=== PATIENT | female | born 1955 | race Caucasian/White ===

== ENCOUNTER 2018-03-31 19:24 | Emergency (ER) | payer MEDICARE ==
[2018-03-31] MEDS ORDERED: NS 0.9% 1000 ML* 1,000 ML IV ONE (19:42)
[2018-03-31] MEDS ORDERED: Famotidine IV* 10 MG/ML 2 ML (20 mg) IV ONE (19:42)
[2018-03-31] MEDS ORDERED: Dexamethasone IV* 4 MG/ML 1 ML (4 MG) IV SLOW PU ONE (19:42)
[2018-03-31] MEDS ORDERED: EPINEPHrine AMP 1 MG/ML SUBCUT ONE (19:42)
--- NOTE | 2018-03-31 19:45 | ED ---
Allergic Reaction/Systemic - HPI Summary HPI Summary: 62 y/o female BIBA c/o sudden onset allergic reaction s/p bee sting at 18:40. Reaction characterized with diffuse redness and difficulty breathing. Pt denies feelings that her throat is swelling.100 Benadryl - 50 IV, 50 PO prior to EMS. No history of COPD. Smoker. Sx not aggravated or alleviated by anything. This is scribe Ed Melanie documenting for attending Albert Foss MD. I, Dr. Foss, personally performed the services described in this documentation as scribed in my presence and it is both accurate and complete. - History of Current Complaint Chief Complaint: EDAllergicReaction Time Seen by Provider: 03/31/18 19:39 Hx Obtained From: Patient Onset/Duration: Sudden Onset, Started hours ago Timing: Constant Pain Intensity: 0 Location: Diffuse - redness Character: Swelling - tongue Aggravating Factor(s): Nothing Alleviating Factor(s): Nothing Associated Signs And Symptoms: Positive: Difficulty Breathing. Negative: Throat Tightening - Allergies/Home Medications Allergies/Adverse Reactions: Allergies Allergy/AdvReac Type Severity Reaction Status Date / Time bee venom protein (honey bee) Allergy Severe Anaphylatic Verified 10/07/17 13:25 Shock morphine AdvReac Intermediate Rash Verified 10/07/17 13:25 PMH/Surg Hx/FS Hx/Imm Hx Previously Healthy: No Endocrine/Hematology History: Denies: Hx Diabetes Cardiovascular History: Reports: Hx Coronary Artery Disease, Hx Hypertension, Other Cardiovascular Problems/Disorders - cardiomyopathy Denies: Hx Pacemaker/ICD Respiratory History: Reports: Hx Pleural Effusion - multiple rib fractures with associated PE, Other Respiratory Problems/Disorders - smoker GI History: Reports: Hx Gastroesophageal Reflux Disease History: Denies: Hx Renal Disease Comment Only: Other Problems/Disorders - patient denies Musculoskeletal History: Reports: Hx Arthritis, Hx Back Problems, Hx Fibromyalgia, Hx Osteoporosis, Other Musculoskeletal History - left knee replacement Sensory History: Reports: Hx Contacts or Glasses - READING, Hx Eye Injury - bilateral periorbital ecchymosis since fall 3 ft, Hx Vision Problem Denies: Hx Hearing Aid Opthamlomology History: Reports: Hx Contacts or Glasses - READING, Hx Eye Injury - bilateral periorbital ecchymosis since fall 3 ft, Hx Vision Problem Neurological History: Denies: Other Neuro Impairments/Disorders - PAIN CLINIC PATIENT Psychiatric History: Reports: Hx Anxiety - NO MEDS, Hx Depression - NO MEDS, Hx of Violent Episodes Against Others, Hx Substance Abuse - ETOH ABUSE Denies: Hx Eating Disorder, Hx Panic Disorder - Surgical History Surgery Procedure, Year, and Place: Left Knee Replacement 1993; Knee Arthroplasty x2; tubal;. 2002 [facility] Hx Anesthesia Reactions: No Infectious Disease History: No Infectious Disease History: Denies: Traveled Outside the [place] in Last 30 Days - Family History Known Family History: Positive: Unknown - Social History Alcohol Use: Weekly Alcohol Amount: 6-8 drinks per week Hx Substance Use: No Substance Use Type: Reports: None Hx Tobacco Use: Yes Smoking Status (MU): Current Every Day Smoker Type: Cigarettes Amount Used/How Often: 1 PPD Length of Time of Smoking/Using Tobacco: 40yrs Have You Smoked in the Last Year: Yes Review of Systems Constitutional: Negative Eyes: Negative ENT: Negative Cardiovascular: Negative Positive: Shortness Of Breath Gastrointestinal: Negative Genitourinary: Negative Musculoskeletal: Negative Skin: Other - diffuse redness and swelling Neurological: Negative Psychological: Normal All Other Systems Reviewed And Are Negative: Yes Physical Exam - Summary Physical Exam Summary: VITAL SIGNS: Reviewed. GENERAL: Patient is a well-developed and nourished female who is lying comfortable in the stretcher. Patient is not in any acute respiratory distress. HEAD AND FACE: There is no facial swelling. No signs of trauma. No ecchymosis, hematomas or skull depressions. No sinus tenderness. EYES: PERRLA, EOMI x 2, No injected conjunctiva, no nystagmus. EARS: Hearing grossly intact. Ear canals and tympanic membranes are within normal limits. MOUTH: Oropharynx within normal limits. There is no tongue or lip swelling. NECK: Supple, trachea is midline, no adenopathy, no JVD, no carotid bruit, no c- spine tenderness, neck with full ROM. CHEST: Symmetric, no tenderness at palpation LUNGS: Decreased breath sounds bilaterally, mild wheezing. CVS: Regular rate and rhythm, S1 and S2 present, no murmurs or gallops appreciated. ABDOMEN: Soft, non-tender. No signs of distention. No rebound no guarding, and no masses palpated. Bowel sounds are normal. EXTREMITIES: FROM in all major joints, no edema, no cyanosis or clubbing. NEURO: Alert and oriented x 3. No acute neurological deficits. Speech is normal and follows commands. SKIN: Erythema and hives diffuse over the body. PSYCH: The patient seems anxious. Triage Information Reviewed: Yes Vital Signs On Initial Exam: Initial Vitals Temp Pulse Resp BP Pulse Ox 98 F 102 18 121/74 88 03/31/18 19:33 03/31/18 19:33 03/31/18 19:33 03/31/18 19:33 03/31/18 19:33 Vital Signs Reviewed: Yes Diagnostics - Vital Signs Vital Signs Temp Pulse Resp BP Pulse Ox 03/31/18 19:33 98 F 102 18 121/74 88 - Laboratory Result Diagrams: 03/31/18 19:46 03/31/18 19:46 Lab Statement: Any lab studies that have been ordered have been reviewed, and results considered in the medical decision making process. - EKG 1 EKG Interpretation: 19:58 - SR @ [address] elevations. PVC's. [address] depressions V4-6. Allergic Reaction Course/Dx - Course Assessment/Plan: Test results are without significant abnormalities except Sodium 123, which was significantly decreased from previous visits (132 December 09 ). Chloride 78, anion gap 14, glucose 108. Potassium 2.3. In the ED course the pt was placed on monitor, given epinephrine, solumedrol and decadron for the allergic reaction. Pt was given IV fluids, potassium PO because she declined potassium IV. I had a lengthy discussion with the charge nurse and the primary nurse about admitting the pt to the hospital for hyponatremia and hypokalemia. Pt is alert and oriented x3 and refuses to stay. We spent more than 40 minutes trying to convince the pt that she needs to stay; however, she refuses, she will have to sign AMA. However, she refuses to sign AMA because she thinks that her insurance will not cooperate with her if she does. Therefore we gave her the AMA form and the form was signed by the charge nurse, the primary care nurse and I. The pt will be d/c AMA. Pt was A&Ox3, hemodynamically stable. I offered Rx epinephrine, prednisone, Benadryl and Pepcid. She will only take the Rx for prednisone. Refuses epipen. She is A&Ox3, hemodynamically stable. - Diagnoses Provider Diagnoses: Allergic reaction, Hyponatremia, Hypokalemia Discharge - Sign-Out/Discharge Documenting (check all that apply): Patient Departure - Discharge Plan Condition: Stable Disposition: AGAINST MEDICAL ADVICE Prescriptions: predniSONE TAB* [Deltasone 20 MG TAB*] 40 mg PO DAILY #8 tab Patient Education Materials: Hyponatremia (ED), General Allergic Reaction (ED) Referrals: Kaitlyn Parker MD [Primary Care Provider] - - Billing Disposition and Condition Condition: STABLE Disposition: Against Medical Advice
[2018-03-31 19:56] LABS: ABS Basophils 0 10^3/ul (0-0.2); ABS Eosinophils 0 10^3/ul (0-0.6); ABS Lymphocytes 1.7 10^3/ul (1.0-4.8); ABS Monocytes 0.5 10^3/ul (0-0.8); ABS Neutrophils 3.7 10^3/ul (1.5-7.7); ABS Nucleated RBC 0 10^3/ul; Eosinophil % 0.4 % (0-6); Hematocrit 39 % (35-47); Hemoglobin 13.9 g/dl (12.0-16.0); Mean Corpuscular HGB Conc 36 g/dl (31-36); Mean Corpuscular Hemoglobin 32 pg (27-31); Mean Corpuscular Volume 90 fL (80-97); Mean Platelet Volume 7.7 um3 (7.4-10.4); Nucleated Red Blood Cells % 0.1; Platelet Count 247 10^3/ul (150-450); Red Blood Count 4.33 10^6/ul (4.00-5.40); Red Cell Distribution Width 13 % (10.5-15); White Blood Count 5.9 10^3/ul (3.5-10.8)
[2018-03-31] MEDS: Albuterol/Ipratropium NEB.SOL* Albuterol 2.5 MG/Ipratropium 0.5 MG 3 ML INH SCH ×3 (20:00→20:20)
[2018-03-31 20:13] LABS: EGFR Non-African American 103.3 (>60)
[2018-03-31] MEDS ORDERED: Potassium Chlor TAB* 20 MEQ TAB.ER PO ONE (20:35)
[2018-03-31] MEDS ORDERED: Magnesium Oxide TAB* 400 MG PO ONE (20:35)
--- OUTSIDE RECORDS SUMMARY | 2018-03-31 20:44 | XMS REPORT ---
:1955 External Reference #:[id number] Author Organization [facility] Address [address] [place] [address] Phone [phone] Care Team Providers Name Role Phone Kaitlyn Madsen M.D., R.D. Care Team Information Dermatology Procedural Physician Unavailable Payers Type Date Identification Numbers Payment Provider Subscriber Medicare Primary Effective: Policy Number: Medicare - Bswny Ross 1995 [id number] [facility] Yajaira Expires: 2015 PayID: [id number] [address] [place] [address] Commercial Expires: Policy Number: [place] Ross 2017 [id number] [employer] Yajaira PayID: [id number] Today's Options [address] [address] [place] [address] Commercial Effective: Policy Number: Eneida Be 2017 [id number] Medicare Yajaira Blueppo PayID: [id number] [address] [address] [place] [address] Problems Date Description Provider Status Onset: 05/13/2012 Low back pain Kaitlyn Madsen M.D., R.D. Active Onset: 05/13/2012 Disorder of shoulder Kaitlyn Madsen M.D., R.D. Active Onset: 05/13/2012 Essential hypertension Kaitlyn Madsen M.D., R.D. Active Onset: 05/13/2012 Ex-smoker Kaitlyn Madsen M.D., R.D. Active Onset: 05/13/2012 Liver function tests abnormal Kaitlyn Madsen M.D., R.D. Active Onset: 05/13/2012 Weight decreased Kaitlyn Madsen M.D., R.D. Active Onset: 05/13/2012 Hypercalcemia Kaitlyn Madsen M.D., R.D. Active Onset: 05/31/2015 Cardiomyopathy, unspecified Jessica Rajput, [facility] Active Social History Type Date Description Comments Marital Status Lives With Spouse Cigarette Use current cigarette smoker Cigarette Use Current Cigarette Smoker 1 Pack Daily ETOH Use Currently consumes alcohol one drink a day Smoking Patient is a current smoker, smokes 1 ppd every day Exercise Type/Frequency Does not exercise Allergies, Adverse Reactions, Alerts Date Description Reaction Status Severity Comments 05/21/2010 Morphine active Eyes blurry and skin itchy 01/28/2011 Bee Sting active 01/10/2010 NKDA inactive Medications Medication Date Status Form Strength Qnty SIG Indications Ordering Provider Metolazone 03/18 Active Tablets 2.5mg 30tab 1 by mouth s every day x Tena, 3days when M.D., edema worsens R.D. Lisinopril 01/14 Active Tablets 10mg 90tab 1 by mouth I10 s every day Didier Madsen, R.D. Bumetanide 12/01 Active Tablets 0.5mg 90tab 1-2 po qd s Didier Madsen, R.D. Magnesium 12/01 Active Tablets 200mg 30tab 1 by mouth s every day Didier Madsen, R.D. Nystatin 12/01 Active Cream [id number] 60gm apply three t/GM times a day Tena to affected M.D., area for 2 R.D. weeks Potassium 12/09 Active Capsules 10Meq 90cap 1 by mouth I10 Kaitlyn Chloride ER /2016 ER s every day [facility] Tena [id number] Didier, R.D. Miralax 05/27 Active Powder 3350NF 1Bott 1 capful in 8 le oz of juice P. or water horacen Didier García Coreg 05/26 Active Tablets 3.125mg 60tab 1 by mouth s twice a day Didier Madsen, R.D. Ibuprofen 03/16 Active Tablets 800mg 270ta 1 by mouth bs three times a Tena, sherrie Velásquez, R.D. Pepcid 05/26 Active Tablets 20mg 60tab 1 by mouth s every day to P. twice a day Didier García Oxycodone HCL 07/30 Active Tablets 10mg 180ta 1 by mouth 4 M54.89 bs hours as Tena, needed severe M.D., pain- R.D. clarification of name on rx from 01/14/18 Nystatin 01/14 Hx Powder [id number] 30gm apply to t/GM affected area Tena, - 2-three times M.D., 03/18 a day daily R.D. as needed fungal rash Amitriptyline 05/26 Hx Tablets 10mg 90tab take one-5 s tablets by Tena, - mouth at M.D., 12/01 bedtime R.D. /2017 Vitamin E 12/09 Hx Capsules 400Unit Tena, - M.D., 12/01 R.D. Potassium 12/09 Hx Tablets 10Meq 1 by mouth I10 Kaitlyn Chloride Corie ER every day Tena, - when taking M.D., 12/09 the hctz R.D. Potassium 12/09 Hx Tablets 10Meq 4 tab by I10 Kaitlyn Chloride Corie ER mouth twice a Tena, - day M.D., 12/09 R.D. /2016 Bactrim DS 10/10 Hx Tablets 800-160mg 10tab 1 by mouth N39.0 s twice a day x Madelaine, - 5 days [facility] 12/09 Diflucan /10 Hx Tablets 150mg 2tabs take 1 tablet N39.0 now december Madelaine, - repeat in 1 [facility] 12/09 week needed Spironolactone 05/06 Hx Tablets 25mg 30tab 1 by mouth I42.9 s every day Dimitri Madsen M.D., 12/01 R.D. /2017 Meloxicam 05/06 Hx Tablets 7.5mg 60tab 1-2 po qd M15.0 s Dimitri Madsen M.D., 12/09 R.D. /2016 Amitriptyline 11/15 Hx Tablets 25mg 90tab 1-5 by mouth Akitlyn HCL s daily as Dimitri Madsen needed Didier, 05/26 R.D. Triamcinolone 09/27 Hx Cream 0.1% 160gm apply a small L20.9 Kaitlyn Acetonide amount to Dimitri Madsen affected area Didier, 03/18 twice a day R.D. for 2 weeks Cymbalta 09/[address] 60mg 180ca 2 by mouth Part ps every day Dimitri Madsen M.D., 03/18 R.D. /2017 Cymbalta 09/04 Hx Caps 30mg 30cap 1 by mouth Part s every day Dimitri Madsen M.D., 09/07 R.D. /2015 Lisinopril 07/26 Hx Tablets 10mg 90tab 1 by mouth s every day Dimitri Madsen M.D., 12/01 R.D. Fluoxetine HCL 07/26 Hx Tablets 20mg 60tab 1-2 by mouth s every day Dimitri Madsen M.D., 05/14 R.D. /2015 Miralax 06/15 Hx Powder 3350NF 510un 17 g daily in its 8 ounces of Dimitri Madsen water Didier, 12/09 R.D. /2016 Metolazone 06/12 Hx Tablets 2.5mg 30tab 1 by mouth s every day x Dimitri Madsen 3days when Didier, 05/06 edema worsens R.D. /2015 Lisinopril 06/09 Hx Tablets 5mg 30tab 1 by mouth s every day Dimitri Madsen M.D., 07/26 R.D. /2014 Acetaminophen ER 06/09 Hx Tablets 650mg 60tab 1 po bid prn M25.50 ER s pain Dimitri Madsen M.D., 12/01 R.D. /2017 Aspir-81 06/09 Hx Tablets 81mg 30tab [address] s every day Dimitri Madsen M.D., 12/01 R.D. Multivitamin 06/09 Hx 1 po qd Dimitri Madsen M.D., 03/18 R.D. /2017 Citalopram 06/09 Hx Tablets 10mg 30tab 1 by mouth Hydrobromide s every day Dimitri Madsen M.D., 06/09 R.D. Hydroxyzine HCL 05/31 Hx Tablets 10mg 45tab 1 -2 tables s by mouth 4 Madelaine, - times a day [facility] 12/01 as needed for anxiety, may cause drowsiness Amitriptyline 05/31 Hx Tablets 10mg 90tab take 1- 3 s tablets by Tena, - mouth at M.D., 11/15 bedtime R.D. /2015 Fluoxetine HCL 05/29 Hx Capsules 10mg 37cap 1 po qd for 1 s week, then Tena, - increase to 2 M.D., 07/26 po qd R.D. /2014 Furosemide 12/19 Hx Tablets 40mg 30tab 1 by mouth s prn edema Dimitri Madsen M.D., 01/14 R.D. /2017 Clarinex 06/17 Hx Tablets 5mg 30tab 1 po qd for s allergies Dimitri Madsen M.D., 11/22 R.D. /2013 Ciprofloxacin 05/28 Hx Tablets 500mg 14tab take 1 tablet 599.0 Jessica HCL s po bid x 7 Madelaine, - days [facility] 06/17 Cyclobenzaprine 03/22 Hx Tablets 10mg 30tab take one HCL s tablet by Tena - mouth qhs as M.DEmilie, 11/22 needed R.D. /2013 Hydrocodone/Acet 03/22 Hx Tablets 5-325mg 30tab 1-2 po qid aminophen s prn Dimitri Madsen M.D., 06/17 R.D. Enalapril 03/17 Hx Tablets 2.5mg 90tab 1 po qd Kaitlyn Male Dimitri Mccormick M.D., 12/19 R.D. /2014 Metoprolol 03/17 Hx Tablets 25mg 180ta 1 po bid Kaitlyn Tartrate bs Dimitri Madsen M.D., 11/22 R.D. /2013 Carvedilol 03/17 Hx Tablets 3.125mg 180ta 1 po bid for 428.0 bs heart Dimitri Madsen M.D., 12/19 R.D. /2014 Furosemide 03/17 Hx Tablets 20mg 180ta 1-2 po qd Pls bs disregard rx Dimitri Madsen b/tiki Velásquez, 12/19 pt now taking R.D. /2014 1-2 pill qd so needs more med Coreg 02/23 Hx Tablets 3.125mg 60tab 1 po bid for 428.0 s heart Nesha Hernandez, - [facility] 03/17 Torsemide 02/23 Hx Tablets 10mg 90tab 1 by mouth 428.0 s daily as Dimitri Madsen needed edema Didier, 06/12 R.D. Oxycodone HCL 02/23 Hx Tablets 10mg 120hn 1 po qid prn 724.5 drdtw severe pain Dimitri Hope nt [facility] 05/26 Life Alert 02/17 Hx Dimitri Madsen M.D., 12/01 R.D. /2017 Trazodone HCL 02/16 Hx Tablets 50mg 180ta 1 or 2 po QHS bs prn insomnia Dimitri Madsen M.D., 12/19 R.D. Ramipril 02/15 Hx Capsules 2.5mg 30cap 1 po qd Dimitri Mccormick M.D., 03/17 R.D. Spironolactone 02/15 Hx Tablets 25mg 90tab 1 po qd Dimitri Mccormick M.D., 12/19 R.D. /2014 Percocet 02/15 Hx Tablets 10-325mg 120ta 1 po qid prn 719.46 bs Dimitri Madsen M.D., 03/22 R.D. Flexeril 12/17 Hx Tablets 10mg 30tab 1/2 to 1 pill s q8hr prn Nesha Hernandez, - muscle spasm [facility] 02/15 Sulfamethoxazole 12/17 Hx Tablets 800-160mg 10tab 1 po bid for 599.0 [place] /Trimethoprim s infection Nesha Hernandez, - [facility] 02/15 Fluconazole 08/13 Hx Tablets 150mg 2tabs 1 po now, december repeat in 1 Tena, - week if sx Didier, 02/15 still present R.D. /2012 Clindamycin HCL 07/30 Hx Capsules 300mg 14cap 1 po bid 616.10 Dimitri Mccormick M.D., 02/15 R.D. Flagyl 07/17 Hx Tablets 250mg 21tab 1 po tid for s 7 days Nesha Hernandez, - [facility] 08/03 Clindamycin 07/07 Hx Cream 2% 40gm 1 applicator Jessica full Madelaine, - intravaginall [facility] 07/17 y hs for consecutive days Fluconazole 06/26 Hx Tablets 150mg 2tabs 1 po now, december 616.10 repeat in 1 Nesha Hernandez, - week if sx [facility] 08/03 still present Bumetanide 03/18 Hx Tablets 1mg 180ta 1-2 by mouth bs every in the Tena, - morning M.DEmilie, 05/06 instead of R.D. /2015 torsemide Nicotine 03/12 Hx Patches 14mg/24HR 28uni apply one to 24HR ts skin qd Dimitri Madsen M.D., 11/22 R.D. /2013 Medrol Dosepak 02/16 Hx Tablets 4mg 1Pack take oraly per package Nesha Hernandez - directions [facility] 02/15 Nicotine 01/28 Hx Patches 21mg/24HR 28uni apply one per 24HR ts day Dimitri Madsen M.D., 03/12 R.D. /2011 Prednisone 01/28 Hx Tablets 10mg QS 4 po qd for 2 days, then 3 Tena - po qd for 3 M.DEmilie, 02/15 days, then 2 R.D. po qd for 4 days, then 1 po qd for 4 days, then 1/2 po for 4 days Oxycodone HCL 11/26 Hx Tablets 5mg 180ta 1-2 po tid 724.5 bs prn Dimitri HopeP-Tiki 07/30 Amitriptyline 07/31 Hx Tablets 10mg 90tab take 2-3 Kaitlyn s tablets by Dimitri Madsen mouth qhs Didier, 02/15 R.D. Lisinopril 11/19 Hx Tablets 5mg 90tab 1 po qd 401.9 Laith Dimitri Mccord M.D. 02/15 Flexeril 10/23 Hx Tablets 10mg 30tab 1/2 to 1 pill I10 Jessica s q8hr as Madelaine, - needed muscle [facility] 03/18 Lasix 10/15 Hx Tablets 20mg 90tab 1 po qd 401.9 s Dimitri Madsen M.D., 03/18 R.D. Potassium 10/15 Hx Capsules 10Meq 90cap 1 by mouth I10 Kaitlyn Chloride ER ER s every day Dimitri Madsen M.D., 12/09 R.D. /2016 Oxycodone 05/21 Hx 5mg 180un 1-2 po qid 724.5 its prn Dimitri Madsen M.D., 11/26 R.D. Handicapped 05/21 Hx Back and knee Kaitlyn Sticker pain and Dimitri Madsen arthritis. Didier, 11/26 Needs R.D. /2010 walker to ambulate. Augmentin 01/24 Hx Tablets 875-125mg 20tab 1 po bid Dimitri Mccormick M.D., 11/26 R.D. /2010 Azithromycin 01/10 Hx Tablets 250mg 6tabs 2 po today 482.9 then 1 po Tena, Dimitri daily for 4 M.D., 11/26 days R.D. /2010 Bactrim DS 02/07 Hx Tablets 800-160 10tab 1 po bid for 599.89 Kaitlin s 5 day A. - [place], 01/10 [facility] Pyridium 02/07 Hx Tablets 200mg 6tabs take one 599.89 tablet tid A. - with food for , 01/10 2 days [facility] Amitriptyline 12/06 Hx Tablets 25mg 30tab 1 po qhs for Shawnti HCL s pain/sleep REmilie Hernandez, - [facility] 12/06 Cipro 12/06 Hx Tablets 250mg 6tabs 1 pill po bid 599.0 w for 3 days REmilie Hernandez, - for urine [facility] 12/13 infection Amitriptyline 12/06 Hx Tablets 50mg 30tab 1 po qhs for [place] HCL s pain/sleep REmilie Hernandez, - [facility]C 01/10 Oxycontin 11/02 Hx Tablets 10mg 60tab 1 po bid 724.2 ER 12HR s Nesha Hernandez, - [facility] 02/07 Ibuprofen 11/02 Hx Tablets 800mg 270ta 1 po tid prn 724.2 Dimitri Velázquez M.D., 02/15 R.D. /2012 Darvocet-N 100 10/24 Hx Tablets 100 60tab 1-2 po qid s Dimitri Bolaños M.D., 11/02 R.D. Amitriptyline 10/17 Hx Tablets 10mg 60tab 2 po qhs Kaitlyn Dimitri Mccormick M.D., 04/21 R.D. /2008 Percocet 10/17 Hx Tablets 5-325mg 120ta 1-2 po q 6 bs hours prDimitri Matias M.D., 10/24 R.D. Carisoprodol 10/05 Hx Tablets 350mg 60tab 1 po qid Dimitri Mccormick M.D., 10/17 R.D. Diclofenac 10/05 Hx Tablets 75mg 60tab 1 po bid Dimitri Huff M.D., 10/17 R.D. Tramadol HCL 10/05 Hx Tablets 50mg 1 po tid prn for back pain Dimitri Madsen M.D., 10/17 R.D. Vicodin 10/05 Hx Tablets 5-500mg q 4-6 hours Dimitri Madsen M.D., 10/05 R.D. Vicodin HP 10/05 Hx Tablets 10-660mg 60tab 1 po qid prn Dimitri Mccormick M.D., 10/17 R.D. Immunizations CPT Code Status Date Vaccine Lot # [id number] Given 06/17/2013 Pneumovax 23 (PPSV23) 65+ years or high risk 2 to [id number] 64 year old 18095 Given 11/02/2008 Tdap (Adacel) [id number] Refused 05/27/2016 Influenza Virus Vaccine, Quadrivalent, 3 Yr > Quad , Preserv Free [id number] Refused 09/27/2015 Influenza Virus Vaccine, Quadrivalent, 3 Yr > Quad , Preserv Free Vital Signs Date Vital Result Comment 03/18/2018 Weight 153.00 lb Weight in kg's 69.401 BP Systolic 122 mmHg BP Diastolic 80 mmHg Heart Rate 94 /min Body Temperature 97.8 F Respiratory Rate 16 /min O2 % BldC Oximetry 98 % 01/14/2018 Weight 156.00 lb Weight in kg's 70.762 BP Systolic 136 mmHg BP Diastolic 86 mmHg Heart Rate 100 /min Body Temperature 98.6 F Respiratory Rate 17 /min Height 63 inches 5'3" BMI (Body Mass Index) 27.6 kg/m2 O2 % BldC Oximetry 98 % 12/01/2017 Weight 158.00 lb Weight in kg's 71.669 BP Systolic 170 mmHg BP Diastolic 90 mmHg Heart Rate 82 /min Body Temperature 97.9 F Respiratory Rate 16 /min O2 % BldC Oximetry 98 % 05/07/2017 Weight 150.00 lb Weight in kg's 68.040 BP Systolic 140 mmHg BP Diastolic 80 mmHg Heart Rate 100 /min Body Temperature 98.6 F Respiratory Rate 20 /min O2 % BldC Oximetry 95 % 12/09/2016 Weight 145.00 lb Weight in kg's 65.772 BP Systolic 140 mmHg BP Diastolic 82 mmHg Heart Rate 84 /min Body Temperature 97.2 F Respiratory Rate 20 /min 05/27/2016 Weight 140.00 lb Weight in kg's 63.504 BP Systolic 110 mmHg BP Diastolic 70 mmHg Heart Rate 100 /min Body Temperature 98.6 F O2 % BldC Oximetry 96 % 05/06/2016 Weight 140.00 lb Weight in kg's 63.504 BP Systolic 140 mmHg BP Diastolic 74 mmHg Heart Rate 92 /min Body Temperature 98.8 F Respiratory Rate 16 /min 11/06/2015 Weight 142.00 lb Weight in kg's 64.411 BP Systolic 150 mmHg BP Diastolic 100 mmHg Heart Rate 88 /min 09/27/2015 Weight 150.00 lb Weight in kg's 68.040 BP Systolic 187 mmHg BP Diastolic 100 mmHg Heart Rate 88 /min 07/26/2015 Weight 138.00 lb Weight in kg's 62.597 BP Systolic 170 mmHg [place] 140/90 BP Diastolic 96 mmHg [place] 140/90 Heart Rate 88 /min Body Temperature 98.8 F O2 % BldC Oximetry 99 % 07/12/2015 Weight 141.00 lb Weight in kg's 63.958 BP Systolic 78 mmHg BP Diastolic 46 mmHg Heart Rate 76 /min Body Temperature 96.5 F 06/09/2015 Weight 140.31 lb Weight in kg's 63.646 BP Systolic 150 mmHg BP Diastolic 92 mmHg Heart Rate 92 /min 05/31/2015 Weight 140.00 lb Weight in kg's 63.504 BP Systolic 152 mmHg BP Diastolic 96 mmHg Heart Rate 76 /min repeat 99 Body Temperature 97.6 F O2 % BldC Oximetry 98 % 05/26/2015 Weight 137.00 lb Weight in kg's 62.143 BP Systolic 128 mmHg BP Diastolic 76 mmHg Heart Rate 99 /min Body Temperature 99.2 F O2 % BldC Oximetry 94 % Room Air 12/19/2014 Weight 138.00 lb Weight in kg's 62.597 BP Systolic 130 mmHg BP Diastolic 60 mmHg Heart Rate 104 /min 06/01/2014 Weight 131.00 lb Weight in kg's 59.422 BP Systolic 130 mmHg BP Diastolic 90 mmHg Heart Rate 72 /min 11/22/2013 Weight 130.00 lb Weight in kg's 58.968 BP Systolic 122 mmHg BP Diastolic 82 mmHg Heart Rate 88 /min Height 63.5 inches 5'3.50" BMI (Body Mass Index) 22.7 kg/m2 06/17/2013 Weight 134.00 lb Weight in kg's 60.782 BP Systolic 106 mmHg BP Diastolic 68 mmHg Heart Rate 66 /min Body Temperature 97.0 F 05/28/2013 Weight 132.00 lb Weight in kg's 59.875 BP Systolic 120 mmHg BP Diastolic 84 mmHg Heart Rate 80 /min Body Temperature 98.4 F 03/17/2013 Weight 135.00 lb Weight in kg's 61.236 BP Systolic 116 mmHg BP Diastolic 70 mmHg Heart Rate 88 /min 02/23/2013 Weight 157.00 lb Weight in kg's 71.215 BP Systolic 146 mmHg BP Diastolic 76 mmHg Heart Rate 106 /min Body Temperature 97.1 F O2 % BldC Oximetry 98 % 02/15/2013 Weight 156.00 lb Weight in kg's 70.762 BP Systolic 140 mmHg BP Diastolic 78 mmHg Heart Rate 92 /min 12/17/2012 Weight 150.00 lb Weight in kg's 68.040 BP Systolic 142 mmHg BP Diastolic 78 mmHg Heart Rate 100 /min Body Temperature 98.3 F 09/14/2012 Weight 147.00 lb Weight in kg's 66.679 BP Systolic 120 mmHg BP Diastolic 70 mmHg Heart Rate 62 /min 07/30/2012 Weight 145.00 lb Weight in kg's 65.772 BP Systolic 124 mmHg BP Diastolic 74 mmHg Heart Rate 80 /min 06/26/2012 Weight 145.00 lb Weight in kg's 65.772 BP Systolic 112 mmHg BP Diastolic 74 mmHg Heart Rate 112 /min Body Temperature 98.2 F 03/20/2012 Weight 142.00 lb Weight in kg's 64.411 BP Systolic 140 mmHg BP Diastolic 88 mmHg Heart Rate 72 /min Body Temperature 99.3 F 03/12/2012 Weight 143.00 lb Weight in kg's 64.865 BP Systolic 126 mmHg BP Diastolic 72 mmHg Heart Rate 88 /min Body Temperature 97.8 F Height 64 inches 5'4" BMI (Body Mass Index) 24.5 kg/m2 01/29/2012 Weight 145.00 lb Weight in kg's 65.772 BP Systolic 140 mmHg BP Diastolic 80 mmHg Heart Rate 78 /min 07/31/2011 Weight 154.00 lb Weight in kg's 69.854 BP Systolic 130 mmHg BP Diastolic 78 mmHg Heart Rate 78 /min O2 % BldC Oximetry 98 % 01/28/2011 Weight 157.00 lb Weight in kg's 71.215 BP Systolic 140 mmHg BP Diastolic 82 mmHg Heart Rate 104 /min 11/19/2010 Weight 162.00 lb Weight in kg's 73.483 BP Systolic 158 mmHg BP Diastolic 90 mmHg Heart Rate 92 /min 10/23/2010 Weight 160.00 lb Weight in kg's 72.576 BP Systolic 150 mmHg BP Diastolic 80 mmHg Heart Rate 108 /min Body Temperature 98.6 F 10/15/2010 Weight 162.00 lb Weight in kg's 73.483 BP Systolic 150 mmHg BP Diastolic 84 mmHg Heart Rate 82 /min O2 % BldC Oximetry 97 % On Room Air 05/21/2010 Weight 162.00 lb Weight in kg's 73.483 BP Systolic 190 mmHg Recheck 150/90 BP Diastolic 100 mmHg Recheck 150/90 Heart Rate 116 /min Recheck 90 01/10/2010 Weight 172.00 lb Weight in kg's 78.019 BP Systolic 150 mmHg BP Diastolic 102 mmHg Heart Rate 112 /min 02/07/2009 Weight 173.00 lb Weight in kg's 78.473 BP Systolic 130 mmHg BP Diastolic 90 mmHg Heart Rate 108 /min Body Temperature 99.0 F 12/06/2008 Weight 177.00 lb Weight in kg's 80.287 BP Systolic 112 mmHg BP Diastolic 72 mmHg Heart Rate 84 /min 11/02/2008 Weight 174.00 lb Weight in kg's 78.926 BP Systolic 150 mmHg BP Diastolic 88 mmHg Heart Rate 88 /min 10/17/2008 Weight 177.00 lb Weight in kg's 80.287 BP Systolic 140 mmHg BP Diastolic 90 mmHg Heart Rate 96 /min 10/05/2008 Weight 176.00 lb Weight in kg's 79.834 BP Systolic 130 mmHg BP Diastolic 90 mmHg Heart Rate 84 /min Respiratory Rate 18 /min Height 66 inches 5'6" BMI (Body Mass Index) 28.4 kg/m2 Results Test Date Test Result H/L Range Note Comp Metabolic Panel 12/09/2016 Sodium 132 mmol/L Low 133-145 1 Potassium 3.8 mmol/L 3.5-5.0 1 Chloride 94 mmol/L Low 101-111 1 Co2 Carbon Dioxide 29 mmol/L 22-32 1 Anion Gap 9 mmol/L 2-11 1 Glucose 102 mg/dL High 70-100 1 Blood Urea Nitrogen 25 mg/dL High 6-24 1 Creatinine 0.84 mg/dL 0.51-0.95 1 BUN/Creatinine Ratio 29.8 High 8-20 1 Calcium 10.3 mg/dL 8.6-10.3 1 Total Protein 7.1 g/dL 6.4-8.9 1 Albumin 4.4 g/dL 3.2-5.2 1 Globulin 2.7 g/dL 2-4 1 Albumin/Globulin Ratio 1.6 1-3 1 Total Bilirubin 0.50 mg/dL 0.2-1.0 1 Alkaline Phosphatase 70 U/L 34-104 1 Alt 11 U/L 7-52 1 Ast 18 U/L 13-39 1 Egfr Non- 68.9 >60 1 Egfr 88.6 >60 1, 2 Laboratory test finding 12/09/2016 Magnesium 2.0 mg/dL 1.9-2.7 1, 3 CBC Auto Diff 12/09/2016 White Blood Count 7.4 10^3/uL 3.5-10.8 1 Red Blood Count 4.19 10^6/uL 4.0-5.4 1 Hemoglobin 13.2 g/dL 12.0-16.0 1 Hematocrit 39 % 35-47 1 Mean Corpuscular Volume 93 fL 80-97 1 Mean Corpuscular Hemoglobin 32 pg High 27-31 1 Mean Corpuscular HGB Conc 34 g/dL 31-36 1 Red Cell Distribution Width 15 % 10.5-15 1 Platelet Count 241 10^3/uL 150-450 1 Mean Platelet Volume 8 um3 7.4-10.4 1 Abs Neutrophils 4.3 10^3/uL 1.5-7.7 1 Abs Lymphocytes 2.4 10^3/uL 1.0-4.8 1 Abs Monocytes 0.6 10^3/uL 0-0.8 1 Abs Eosinophils 0.1 10^3/uL 0-0.6 1 Abs Basophils 0 10^3/uL 0-0.2 1 Abs Nucleated RBC 0.01 10^3/uL 1 Granulocyte % 57.6 % 38-83 1 Lymphocyte % 32.2 % 25-47 1 Monocyte % 8.6 % 1-9 1 Eosinophil % 1.0 % 0-6 1 Basophil % 0.6 % 0-2 1 Nucleated Red Blood Cells % 0.1 1 Comp Metabolic Panel 05/27/2016 Sodium 127 mmol/L Low 133-145 4 Potassium 3.6 mmol/L 3.5-5.0 4 Chloride 89 mmol/L Low 101-111 4 Co2 Carbon Dioxide 31 mmol/L 22-32 4 Anion Gap 7 mmol/L 2-11 4 Glucose 98 mg/dL 70-100 4 Blood Urea Nitrogen 29 mg/dL High 6-24 4 Creatinine 0.63 mg/dL 0.51-0.95 4 BUN/Creatinine Ratio 46.0 High 8-20 4 Calcium 10.4 mg/dL High 8.6-10.3 4 Total Protein 7.2 g/dL 6.4-8.9 4 Albumin 4.6 g/dL 3.2-5.2 4 Globulin 2.6 g/dL 2-4 4 Albumin/Globulin Ratio 1.8 1-3 4 Total Bilirubin 0.30 mg/dL 0.2-1.0 4 Alkaline Phosphatase 73 U/L 34-104 4 Alt 11 U/L 7-52 4 Ast 17 U/L 13-39 4 Egfr Non- 96.4 >60 4 Egfr 124.0 >60 4, 5 Laboratory test finding 05/27/2016 Urine Culture SEE RESULT BELOW 6, 7 Urine DIP 05/27/2016 Leukocytes + Neg Urine Nitrites NEG Neg Urobilinogen NORM Norm Total Protein, Urine NEG Neg Urine pH 5 5-6 Urine Blood 50 High Neg Specific [place] 1.01 1.01-1.02 Urine Ketones NEG Neg Urine Bilirubin NEG Neg Urine Glucose NORM Norm Laboratory test 05/06/2016 TSH (Thyroid 0.86 mcIU/mL 0.34-5.60 8, 9 finding Stimulating Horm) Comp Metabolic Panel 05/06/2016 Sodium 120 mmol/L Low 133-145 8 Potassium 3.0 mmol/L Low 3.5-5.0 8 Chloride 77 mmol/L Low 101-111 8 Co2 Carbon Dioxide 33 mmol/L High 22-32 8 Anion Gap 10 mmol/L 2-11 8 Glucose 111 mg/dL High 70-100 8 Blood Urea Nitrogen 18 mg/dL 6-24 8 Creatinine 0.72 mg/dL 0.51-0.95 8 BUN/Creatinine Ratio 25.0 High 8-20 8 Calcium 10.1 mg/dL 8.6-10.3 8 Total Protein 7.1 g/dL 6.4-8.9 8 Albumin 4.4 g/dL 3.2-5.2 8 Globulin 2.7 g/dL 2-4 8 Albumin/Globulin Ratio 1.6 1-3 8 Total Bilirubin 0.50 mg/dL 0.2-1.0 8 Alkaline Phosphatase 109 U/L High 34-104 8 Alt 11 U/L 7-52 8 Ast 17 U/L 13-39 8 Egfr Non- 82.6 >60 8 Egfr 106.3 >60 8, 10 CBC Auto Diff 05/06/2016 White Blood Count 7.8 10^3/uL 3.5-10.8 8 Red Blood Count 4.05 10^6/uL 4.0-5.4 8 Hemoglobin 13.0 g/dL 12.0-16.0 8 Hematocrit 37 % 35-47 8 Mean Corpuscular Volume 91 fL 80-97 8 Mean Corpuscular Hemoglobin 32 pg High 27-31 8 Mean Corpuscular HGB Conc 35 g/dL 31-36 8 Red Cell Distribution Width 14 % 10.5-15 8 Platelet Count 245 10^3/uL 150-450 8 Mean Platelet Volume 9 um3 7.4-10.4 8 Abs Neutrophils 5.7 10^3/uL 1.5-7.7 8 Abs Lymphocytes 1.4 10^3/uL 1.0-4.8 8 Abs Monocytes 0.6 10^3/uL 0-0.8 8 Abs Eosinophils 0 10^3/uL 0-0.6 8 Abs Basophils 0 10^3/uL 0-0.2 8 Abs Nucleated RBC 0.01 10^3/uL 8 Granulocyte % 73.1 % 38-83 8 Lymphocyte % 17.6 % Low 25-47 8 Monocyte % 8.2 % 1-9 8 Eosinophil % 0.5 % 0-6 8 Basophil % 0.6 % 0-2 8 Nucleated Red Blood Cells % 0.1 8 Urinalysis Profile 11/16/2015 Urine Color Yellow Urine Appearance Clear Urine Specific [place] 1.006 Low 1.010-1.030 Urine pH 5.0 5-9 Urine Urobilinogen Negative Negative Urine Ketones Negative Negative Urine Protein Negative Negative Urine Leukocytes Negative Negative Urine Blood Negative Negative Urine Nitrite Negative Negative Urine Bilirubin Negative Negative Urine Glucose Negative Negative CBC No Diff 11/16/2015 White Blood Count 7.6 10^3/uL 3.5-10.8 Red Blood Count 3.81 10^6/uL Low 4.0-5.4 Hemoglobin 11.6 g/dL Low 12.0-16.0 Hematocrit 35 % 35-47 Mean Corpuscular Volume 93 fL 80-97 Mean Corpuscular Hemoglobin 31 pg 27-31 Mean Corpuscular HGB Conc 33 g/dL 31-36 Red Cell Distribution Width 14 % 10.5-15 Platelet Count 332 10^3/uL 150-450 Mean Platelet Volume 8 um3 7.4-10.4 Inr/Protime 11/16/2015 Inr 1.00 0.89-1.11 Basic Metabolic Panel 11/16/2015 Sodium 126 mmol/L Low 133-145 Potassium 4.6 mmol/L 3.5-5.0 Chloride 94 mmol/L Low 101-111 Co2 Carbon Dioxide 26 mmol/L 22-32 Anion Gap 6 mmol/L 2-11 Glucose 88 mg/dL 70-100 Blood Urea Nitrogen 19 mg/dL 6-24 Creatinine 0.65 mg/dL 0.51-0.95 BUN/Creatinine Ratio 29.2 High 8-20 Calcium 10.5 mg/dL High 8.6-10.3 Egfr Non- 93.0 >60 Egfr 119.6 >60 11 Type & Screen 11/16/2015 Patient Blood Type A Positive Antibody Screen NEGATIVE Comp Metabolic Panel 07/12/2015 Sodium 122 mmol/L Low 133-145 Chloride 75 mmol/L Low 101-111 Glucose 103 mg/dL High 70-100 Blood Urea Nitrogen 27 mg/dL High 6-24 Creatinine 0.87 mg/dL 0.51-0.95 BUN/Creatinine Ratio 31.0 High 8-20 Calcium 9.2 mg/dL 8.6-10.3 Total Protein 5.7 g/dL Low 6.4-8.9 Albumin 3.3 g/dL 3.2-5.2 Globulin 2.4 g/dL 2-4 Albumin/Globulin Ratio 1.4 1-3 Total Bilirubin 0.50 mg/dL 0.2-1.0 Alkaline Phosphatase 70 U/L 34-104 Alt 23 U/L 7-52 Ast 38 U/L 13-39 Egfr Non- 66.6 >60 Egfr 85.7 >60 12 Potassium 2.0 mmol/L Low 3.5-5.0 13 Co2 Carbon Dioxide 42 mmol/L High 22-32 14 Anion Gap 5 mmol/L 2-11 Laboratory test finding 07/12/2015 Troponin I 0.00 ng/mL <0.03 15 Alcohol < 10 mg/dL <10 Osmolality Serum 261 mOsm/kg Low 275-295 Vitamin B12 > 1450 pg/mL High 180-914 16 CKMB 07/12/2015 CKMB ng/mL 9.5 ng/mL High 0.6-6.3 Laboratory test finding 07/12/2015 Creatine Kinase 359 U/L High 10-223 TSH (Thyroid Stimulating Horm) 0.72 ?IU/mL 0.34-5.60 Comp Metabolic Panel 07/12/2015 Sodium 123 mmol/L Low 133-145 Chloride 73 mmol/L Low 101-111 Glucose 106 mg/dL High 70-100 Blood Urea Nitrogen 27 mg/dL High 6-24 Creatinine 0.92 mg/dL 0.51-0.95 BUN/Creatinine Ratio 29.3 High 8-20 Calcium 10.0 mg/dL 8.6-10.3 Total Protein 6.7 g/dL 6.4-8.9 Albumin 3.9 g/dL 3.2-5.2 Globulin 2.8 g/dL 2-4 Albumin/Globulin Ratio 1.4 1-3 Total Bilirubin 0.60 mg/dL 0.2-1.0 Alkaline Phosphatase 78 U/L 34-104 Alt 26 U/L 7-52 Ast 43 U/L High 13-39 Egfr Non- 62.5 >60 Egfr 80.4 >60 17 Potassium 1.9 mmol/L Low 3.5-5.0 18 Co2 Carbon Dioxide 43 mmol/L High 22-32 19 Anion Gap 7 mmol/L 2-11 20 Laboratory test finding 07/12/2015 Partial Thrombo Time 27.9 seconds 26.0 -36.3 PTT Lactic Acid 1.1 mmol/L 0.5-2.2 B Type Natriuretic Peptide 66 pg/mL 21 Inr/Protime 07/12/2015 Inr 0.95 0.89-1.11 22 CBC Auto Diff 07/12/2015 White Blood Count 8.2 10^3/uL 4.8-10.8 Red Blood Count 3.32 10^6/uL Low 4.0-5.4 Hemoglobin 10.5 g/dL Low 12.0-16.0 Hematocrit 30 % Low 35-47 Mean Corpuscular Volume 90 fL 80-97 Mean Corpuscular Hemoglobin 32 pg High 27-31 Mean Corpuscular HGB Conc 35 g/dL 31-36 Red Cell Distribution Width 14 % 10.5-15 Platelet Count 354 10^3/uL 150-450 Mean Platelet Volume 7 um3 Low 7.4-10.4 Abs Neutrophils 6.3 10^3/uL 1.5-7.7 Abs Lymphocytes 1.3 10^3/uL 1.0-4.8 Abs Monocytes 0.5 10^3/uL 0-0.8 Abs Eosinophils 0.1 10^3/uL 0-0.6 Abs Basophils 0 10^3/uL 0-0.2 Abs Nucleated RBC 0.01 10^3/uL Granulocyte % 77.3 % 38-83 Lymphocyte % 15.4 % Low 25-47 Monocyte % 5.9 % 1-9 Eosinophil % 0.8 % 0-6 Basophil % 0.6 % 0-2 Nucleated Red Blood Cells % 0.1 Laboratory test finding 07/12/2015 Magnesium 2.2 mg/dL 1.9-2.7 CBC Auto Diff 05/31/2015 White Blood Count 6.2 10^3/uL 4.8-10.8 Red Blood Count 4.08 10^6/uL 4.0-5.4 Hemoglobin 12.7 g/dL 12.0-16.0 Hematocrit 38 % 35-47 Mean Corpuscular Volume 94 fL 80-97 Mean Corpuscular Hemoglobin 31 pg 27-31 Mean Corpuscular HGB Conc 33 g/dL 31-36 Red Cell Distribution Width 14 % 10.5-15 Platelet Count 284 10^3/uL 150-450 Mean Platelet Volume 8 um3 7.4-10.4 Abs Neutrophils 3.7 10^3/uL 1.5-7.7 Abs Lymphocytes 1.8 10^3/uL 1.0-4.8 Abs Monocytes 0.5 10^3/uL 0-0.8 Abs Eosinophils 0.1 10^3/uL 0-0.6 Abs Basophils 0 10^3/uL 0-0.2 Abs Nucleated RBC 0 10^3/uL Granulocyte % 59.6 % 38-83 Lymphocyte % 29.5 % 25-47 Monocyte % 8.1 % 1-9 Eosinophil % 2.1 % 0-6 Basophil % 0.7 % 0-2 Nucleated Red Blood Cells % 0.1 Comp Metabolic Panel 05/31/2015 Sodium 131 mmol/L Low 133-145 Potassium 4.1 mmol/L 3.5-5.0 Chloride 96 mmol/L Low 101-111 Co2 Carbon Dioxide 30 mmol/L 22-32 Anion Gap 5 mmol/L 2-11 Glucose 108 mg/dL High 70-100 Blood Urea Nitrogen 18 mg/dL 6-24 Creatinine 0.61 mg/dL 0.51-0.95 BUN/Creatinine Ratio 29.5 High 8-20 Calcium 9.8 mg/dL 8.6-10.3 Total Protein 6.9 g/dL 6.4-8.9 Albumin 4.6 g/dL 3.2-5.2 Globulin 2.3 g/dL 2-4 Albumin/Globulin Ratio 2.0 1-3 Total Bilirubin 0.50 mg/dL 0.2-1.0 Alkaline Phosphatase 70 U/L 34-104 Alt 13 U/L 7-52 Ast 20 U/L 13-39 Egfr Non- 100.4 >60 Egfr 129.1 >60 23 Laboratory test finding 05/31/2015 Magnesium 2.2 mg/dL 1.9-2.7 B-Type Natriuretic Peptide BNP 48 pg/mL 24 CBC Auto Diff 05/26/2015 White Blood Count 8.7 10^3/uL 4.8-10.8 Red Blood Count 3.92 10^6/uL Low 4.0-5.4 Hemoglobin 12.6 g/dL 12.0-16.0 Hematocrit 37 % 35-47 Mean Corpuscular Volume 93 fL 80-97 Mean Corpuscular Hemoglobin 32 pg High 27-31 Mean Corpuscular HGB Conc 34 g/dL 31-36 Red Cell Distribution Width 14 % 10.5-15 Platelet Count 247 10^3/uL 150-450 Mean Platelet Volume 8 um3 7.4-10.4 Abs Neutrophils 5.9 10^3/uL 1.5-7.7 Abs Lymphocytes 2.0 10^3/uL 1.0-4.8 Abs Monocytes 0.7 10^3/uL 0-0.8 Abs Eosinophils 0.2 10^3/uL 0-0.6 Abs Basophils 0 10^3/uL 0-0.2 Abs Nucleated RBC 0 10^3/uL Granulocyte % 67.1 % 38-83 Lymphocyte % 22.8 % Low 25-47 Monocyte % 7.9 % 1-9 Eosinophil % 1.7 % 0-6 Basophil % 0.5 % 0-2 Nucleated Red Blood Cells % 0 Comp Metabolic Panel 05/26/2015 Sodium 130 mmol/L Low 133-145 Potassium 3.8 mmol/L 3.5-5.0 Chloride 95 mmol/L Low 101-111 Co2 Carbon Dioxide 28 mmol/L 22-32 Anion Gap 7 mmol/L 2-11 Glucose 92 mg/dL 70-100 Blood Urea Nitrogen 30 mg/dL High 6-24 Creatinine 0.69 mg/dL 0.51-0.95 BUN/Creatinine Ratio 43.5 High 8-20 Calcium 9.6 mg/dL 8.6-10.3 Total Protein 6.6 g/dL 6.4-8.9 Albumin 4.5 g/dL 3.2-5.2 Globulin 2.1 g/dL 2-4 Albumin/Globulin Ratio 2.1 1-3 Total Bilirubin 0.50 mg/dL 0.2-1.0 Alkaline Phosphatase 58 U/L 34-104 Alt 12 U/L 7-52 Ast 17 U/L 13-39 Egfr Non- 87.1 >60 Egfr 112.0 >60 25 Laboratory test finding 05/26/2015 TSH (Thyroid Stimulating 0.52 ?IU/mL 0.34-5.60 Horm) Magnesium 1.8 mg/dL Low 1.9-2.7 Oxycodone, Urine Quantitation 05/22/2015 Oxycodone 539 ng/mL 26 Oxymorphone 774 ng/mL 27 Oxycodone Interpretation Positive. 28 Drug Abuse 20 Urine 05/22/2015 Urine Amphetamine Negative ng/mL 29 Urine Barbiturates Negative ng/mL 30 Urine Benzodiazepines Negative ng/mL 31 Urine Cocaine Negative ng/mL 32 Urine Methadone Negative ng/mL 33 Urine Opiates Negative ng/mL 34 Urine Phencyclidine Negative ng/mL Cutoff: 25 Urine Tetrahydrocannabinol Negative ng/mL Cutoff: 20 35 Urine Oxycodone Presumptive Posi <SEE NOTE> ng/mL 36 Comp Metabolic Panel 12/19/2014 Sodium 131 mmol/L Low 133-145 Potassium 3.7 mmol/L 3.5-5.0 Chloride 93 mmol/L Low 101-111 Co2 Carbon Dioxide 29 mmol/L 22-32 Anion Gap 9 mmol/L 2-11 Glucose 80 mg/dL 70-100 Blood Urea Nitrogen 12 mg/dL 6-24 Creatinine 0.69 mg/dL 0.51-0.95 BUN/Creatinine Ratio 17.4 8-20 Calcium 10.5 mg/dL High 8.6-10.3 Total Protein 7.7 g/dL 6.4-8.9 Albumin 4.9 g/dL 3.2-5.2 Globulin 2.8 g/dL 2-4 Albumin/Globulin Ratio 1.8 1-3 Total Bilirubin 0.60 mg/dL 0.2-1.0 Alkaline Phosphatase 77 U/L 34-104 Alt 10 U/L 7-52 Ast 17 U/L 13-39 Egfr Non- 87.1 >60 Egfr 112.0 >60 37 Comp Metabolic Panel 06/01/2014 Sodium 131 mmol/L Low 133-145 Potassium 4.5 mmol/L 3.7-5.6 Chloride 96 mmol/L Low 101-111 Co2 Carbon Dioxide 32 mmol/L 22-32 Anion Gap 3 mmol/L 2-11 Glucose 87 mg/dL 70-100 Blood Urea Nitrogen 14 mg/dL 6-24 Creatinine 0.61 mg/dL 0.51-0.95 BUN/Creatinine Ratio 23.0 High 8-20 Calcium 10.1 mg/dL 8.6-10.3 Total Protein 6.9 g/dL 6.4-8.9 Albumin 4.6 g/dL 3.2-5.2 Globulin 2.3 g/dL 2-4 Albumin/Globulin Ratio 2.0 1-3 Total Bilirubin 0.50 mg/dL 0.2-1.0 Alkaline Phosphatase 64 U/L 34-104 Alt 11 U/L 7-52 Ast 16 U/L 13-39 Egfr Non- 100.7 >60 Egfr 129.6 >60 38 CBC Auto Diff 06/01/2014 White Blood Count 5.5 10^3/uL 4.8-10.8 Red Blood Count 4.30 10^6/uL 4.0-5.4 Hemoglobin 13.5 g/dL 12.0-16.0 Hematocrit 39 % 35-47 Mean Corpuscular Volume 92 fL 80-97 Mean Corpuscular Hemoglobin 32 pg High 27-31 Mean Corpuscular HGB Conc 34 g/dL 31-36 Red Cell Distribution Width 14 % 10.5-15 Platelet Count 248 10^3/uL 150-450 Mean Platelet Volume 8 um3 7.4-10.4 Abs Neutrophils 3.2 10^3/uL 1.5-7.7 Abs Lymphocytes 1.8 10^3/uL 1.0-4.8 Abs Monocytes 0.4 10^3/uL 0-0.8 Abs Eosinophils 0 10^3/uL 0-0.6 Abs Basophils 0 10^3/uL 0-0.2 Abs Nucleated RBC 0 10^3/uL Granulocyte % 57.4 % 38-83 Lymphocyte % 33.2 % 25-47 Monocyte % 8.2 % 1-9 Eosinophil % 0.6 % 0-6 Basophil % 0.6 % 0-2 Nucleated Red Blood Cells % 0 Lipid Profile (Trig/Chol/HDL) 06/01/2014 Triglycerides 97 mg/dL 39 Cholesterol 223 mg/dL 40 HDL Cholesterol 57.8 mg/dL 41 LDL Cholesterol 146 mg/dL 42 Laboratory test finding 06/01/2014 Magnesium 2.1 mg/dL 1.9-2.7 Laboratory test finding 06/17/2013 Hepatitis C Antibody Nonreactive Nonreactive Urine Culture And 05/28/2013 Urine Culture (SEE NOTE) 43 Sensitivities Urine DIP 05/28/2013 Leukocytes ++ Neg Urine Nitrites NEG Neg Urine pH 6 5-6 Total Protein, Urine 30+ High Neg Urine Glucose NORM Norm Urine Ketones NEG Neg Urobilinogen NORM Norm Urine Bilirubin NEG Neg Urine Blood 250 High Neg Specific [place] 1.015 1.01-1.02 Comp Metabolic Panel 03/17/2013 Sodium 129 mmol/L Low 133-145 Potassium 4.6 mmol/L 3.5-5.0 Chloride 91 mmol/L Low 101-111 Co2 Carbon Dioxide 31.0 mmol/L 22-32 Anion Gap 7.0 mmol/L 2-11 Glucose 115 mg/dL High 70-100 Blood Urea Nitrogen 17 mg/dL 6-24 Creatinine 0.60 mg/dL 0.50-1.40 BUN/Creatinine Ratio 28.3 High 8-20 Calcium 10.0 mg/dL High 8.1-9.9 Total Protein 7.0 g/dL 6.2-8.1 Albumin 4.4 g/dL 3.6-5.4 Globulin 2.6 g/dL 2-4 Albumin/Globulin Ratio 1.7 1-3 Total Bilirubin 0.7 mg/dL 0.4-1.5 Alkaline Phosphatase 110 U/L 30-110 Alt 14 U/L 14-54 Ast 24 U/L 12-42 Egfr Non- 103.0 >60 Egfr 132.5 >60 44 Laboratory test finding 03/17/2013 Hemoglobin A1c 5.0 % Less than 6.0 45 Magnesium 2.4 mg/dL 1.7-2.6 Lipid Profile (Trig/Chol/HDL) 03/17/2013 Triglycerides 119 mg/dL 40-200 Cholesterol 195 mg/dL Less than 200 HDL Cholesterol 48 mg/dL 40-60 46 Cholesterol/HDL Ratio 4.1 Average 1-4.44 LDL Cholesterol 123.2 High Less Than 100 47 Comp Metabolic Panel 02/15/2013 Sodium 131 mmol/L Low 133-145 Potassium 3.9 mmol/L 3.5-5.0 Chloride 91 mmol/L Low 101-111 Co2 Carbon Dioxide 33.0 mmol/L High 22-32 Anion Gap 7.0 mmol/L 2-11 Glucose 93 mg/dL 70-100 Blood Urea Nitrogen 10 mg/dL 6-24 Creatinine 0.50 mg/dL 0.50-1.40 BUN/Creatinine Ratio 20.0 8-20 Calcium 9.8 mg/dL 8.1-9.9 Total Protein 6.7 g/dL 6.2-8.1 Albumin 3.6 g/dL 3.6-5.4 Globulin 3.1 g/dL 2-4 Albumin/Globulin Ratio 1.2 1-3 Total Bilirubin 0.7 mg/dL 0.4-1.5 Alkaline Phosphatase 86 U/L 30-110 Alt 19 U/L 14-54 Ast 29 U/L 12-42 Egfr Non- 127.2 >60 Egfr 163.6 >60 48 CBC No Diff 02/15/2013 White Blood Count 5.4 10^3/uL 4.8-10.8 Red Blood Count 3.55 10^6/uL Low 4.0-5.4 Hemoglobin 10.7 g/dL Low 12.0-16.0 Hematocrit 33 % Low 35-47 Mean Corpuscular Volume 91 fL 80-97 Mean Corpuscular Hemoglobin 30 pg 27-31 Mean Corpuscular HGB Conc 33 g/dL 31-36 Red Cell Distribution Width 15 % 10.5-15 Platelet Count 386 10^3/uL 150-450 Mean Platelet Volume 8 um3 7.4-10.4 Urine Culture And Sensitivities 12/17/2012 Urine Culture (SEE NOTE) 49 Urine DIP 12/17/2012 Leukocytes +++ Neg Urine Nitrites NEG Neg Urine pH 6 5-6 Total Protein, Urine NEG Neg Urine Glucose NORM Norm Urine Ketones NEG Neg Urobilinogen NORM Norm Urine Bilirubin NEG Neg Urine Blood 50 High Neg Specific [place] 1.02 1.01-1.02 Urine DIP 09/14/2012 Leukocytes NEG Neg Urine Nitrites NEG Neg Urine pH 5 5-6 Total Protein, Urine NEG Neg Urine Glucose NORM Norm Urine Ketones NEG Neg Urobilinogen NORM Norm Urine Bilirubin NEG Neg Urine Blood NEG Neg Specific [place] N/A Low 1.01-1.02 Laboratory test finding 07/30/2012 Genital Culture (SEE NOTE) 50 Cytology 07/03/2012 Cy RUN DATE: <SEE 51 NOTE> Urine DIP 06/26/2012 Leukocytes POS X1 Neg Urine Nitrites NEG Neg Urine pH 5 5-6 Total Protein, Urine NEG Neg Urine Glucose NORM Norm Urine Ketones NEG Neg Urobilinogen NORM Norm Urine Bilirubin NEG Neg Urine Blood NEG Neg Specific [place] NA Low 1.01-1.02 Laboratory test finding 06/26/2012 Cytology RUN DATE: <SEE NOTE> Laboratory test finding 06/26/2012 Affirm Vaginal Dna (SEE NOTE) 53 Probe Genital Culture (SEE NOTE) 54 Laboratory test finding 03/12/2012 TSH 0.55 MIU/ML 0.34-5.60 Comp Metabolic Panel 03/12/2012 Sodium 132 mmol/L Low 135-145 Potassium 4.1 mmol/L 3.5-5.0 Chloride 104 mmol/L 101-111 Co2 (Carbon Dioxide) 25.0 mmol/L 22-32 Anion Gap 3.0 mmol/L 2-11 55 Glucose 106 mg/dL High 70-100 BUN 15 mg/dL 6-24 Creatinine 0.6 mg/dL 0.50-1.40 One Over Creatinine 1.66 BUN/Creatinine Ratio 25.0 High 8-20 Calcium 9.8 mg/dL 8.1-9.9 Total Protein 6.4 GM/DL 6.2-8.1 Albumin 3.9 GM/DL 3.6-5.4 Globulin 2.5 GM/DL 2-4 Albumin/Globulin Ratio 1.6 1-3 Bilirubin Total 0.6 mg/dL 0.4-1.5 56 Alkaline Phosphatase 75 U/L 30-110 Alt (SGPT) 19 U/L 14-54 Ast (Sgot) 25 U/L 12-42 eGFR Non- 103.4 > 60 eGFR 133.0 > 60 57 Comp Metabolic Panel 11/20/2011 Sodium 130 mmol/L Low 135-145 Potassium 4.1 mmol/L 3.5-5.0 Chloride 96 mmol/L Low 101-111 Co2 (Carbon Dioxide) 27.0 mmol/L 22-32 Anion Gap 7.0 mmol/L 2-11 58 Glucose 87 mg/dL 70-100 BUN 9 mg/dL 6-24 Creatinine 0.5 mg/dL Low 0.50-1.40 One Over Creatinine 2.00 BUN/Creatinine Ratio 18.0 8-20 Calcium 9.3 mg/dL 8.1-9.9 Total Protein 6.9 GM/DL 6.2-8.1 Albumin 4.5 GM/DL 3.6-5.4 Globulin 2.4 GM/DL 2-4 Albumin/Globulin Ratio 1.9 1-3 Bilirubin Total 0.7 mg/dL 0.4-1.5 59 Alkaline Phosphatase 80 U/L 30-110 Alt (SGPT) 17 U/L 14-54 Ast (Sgot) 21 U/L 12-42 eGFR Non- 127.6 > 60 eGFR 164.1 > 60 60 Comp Metabolic Panel 07/31/2011 Sodium 132 mmol/L Low 135-145 Potassium 4.9 mmol/L 3.5-5.0 Chloride 99 mmol/L Low 101-111 Co2 (Carbon Dioxide) 27.0 mmol/L 22-32 Anion Gap 6.0 mmol/L 2-11 61 Glucose 90 mg/dL 70-100 BUN 10 mg/dL 6-24 Creatinine 0.6 mg/dL 0.50-1.40 One Over Creatinine 1.66 BUN/Creatinine Ratio 16.7 8-20 Calcium 10.2 mg/dL High 8.1-9.9 Total Protein 5.8 GM/DL Low 6.2-8.1 Albumin 4.3 GM/DL 3.6-5.4 Globulin 1.5 GM/DL Low 2-4 Albumin/Globulin Ratio 2.9 1-3 Bilirubin Total 0.7 mg/dL 0.4-1.5 62 Alkaline Phosphatase 71 U/L 30-110 Alt (SGPT) 16 U/L 14-54 Ast (Sgot) 20 U/L 12-42 eGFR Non- 103.8 > 60 eGFR 133.5 > 60 63 Lipid Profile (Trig/Chol/HDL) 07/31/2011 Triglyceride 194 mg/dL 40-200 Cholesterol 238 mg/dL High Less Than 200 64 High Density Lipoprotein 41 mg/dL 40-60 65 Cholesterol/HDL Ratio 5.80 AVERAGE High 1-4.44 Low Density Lipoprotein 158 mg/dL High Less Than 100 66 Liver Function Panel 11/19/2010 Total Protein 7.3 GM/DL 6.2-8.1 Albumin 4.7 GM/DL 3.6-5.4 Globulin 2.6 GM/DL 2-4 Albumin/Globulin Ratio 1.8 1-3 Bilirubin Total 0.8 mg/dL 0.4-1.5 67 Bilirubin Direct 0.1 mg/dL 0.1-0.5 Indirect Bilirubin 0.7 mg/dL 0.3-1.0 68 Alkaline Phosphatase 83 U/L 30-110 Alt (SGPT) 17 U/L 14-54 Ast (Sgot) 30 U/L 12-42 Laboratory test finding 11/19/2010 Magnesium 2.0 mg/dL 1.7-2.6 Basic Metabolic Panel 11/19/2010 Sodium 131 mmol/L Low 135-145 Potassium 4.6 mmol/L 3.5-5.0 Chloride 97 mmol/L Low 101-111 Co2 (Carbon Dioxide) 26.0 mmol/L 22-32 Anion Gap 8.0 mmol/L 2-11 69 Glucose 100 mg/dL 70-100 BUN 7 mg/dL 6-24 Creatinine 0.50 mg/dL 0.50-1.40 One Over Creatinine 2.00 BUN/Creatinine Ratio 14.0 8-20 Calcium 10.4 mg/dL High 8.1-9.9 eGFR Non- 128.1 > 60 eGFR 164.7 > 60 70 Liver Function Panel 10/15/2010 Bilirubin Direct 0.2 mg/dL 0.1-0.5 Indirect Bilirubin 0.5 mg/dL 0.3-1.0 71 CBC With Electronic Diff 10/15/2010 White Blood Count 6.0 CUMM 4.8-10.8 Red Cell Count 4.00 CUMM Low 4.2-5.4 Hemoglobin 13.2 g/dL 12.0-16.0 Hematocrit 38 % 35-47 Mean Corpuscular Volume 95 um3 79-97 Mean Corpuscular Hemoglob 33 pg High 27-31 Mean Corpuscular HGB Cone 35 g/dL 32-36 Redcell Distribution WDTH 14 % 10.5-15 Platelet Count 287 CUMM 150-450 Mean Platelet Volume 8.0 um3 7.4-10.4 Gran % 66.2 % 38-83 Lymph % 24.0 % Low 25-47 Mononuclear % 9.0 % 1-9 Eosinophil % 0.3 % 0-6 Basophil % 0.5 % 0-2 Abs Lymphs 1.4 1.0-4.8 Abs Mononuclear 0.5 0-0.8 Absolute Neutrophil Count 4.0 1.5-7.7 Abs Eosinophils 0 0-0.6 Abs Basophils 0 0-0.2 Comp Metabolic Panel 10/15/2010 Sodium 134 mmol/L Low 135-145 Potassium 4.5 mmol/L 3.5-5.0 Chloride 98 mmol/L Low 101-111 Co2 (Carbon Dioxide) 28.0 mmol/L 22-32 Anion Gap 8.0 mmol/L 2-11 72 Glucose 114 mg/dL High 70-100 BUN 6 mg/dL 6-24 Creatinine 0.50 mg/dL 0.50-1.40 One Over Creatinine 2.00 BUN/Creatinine Ratio 12.0 8-20 Calcium 9.9 mg/dL 8.1-9.9 Total Protein 7.0 GM/DL 6.2-8.1 Albumin 4.5 GM/DL 3.6-5.4 Globulin 2.5 GM/DL 2-4 Albumin/Globulin Ratio 1.8 1-3 Bilirubin Total 0.7 mg/dL 0.4-1.5 73 Alkaline Phosphatase 72 U/L 30-110 Alt (SGPT) 21 U/L 14-54 Ast (Sgot) 26 U/L 12-42 eGFR Non- 128.6 > 60 eGFR 165.4 > 60 74 Laboratory test finding 01/10/2010 GGTP 193 U/L High 7-50 Hepatitis Be Antibodies Negative Negative 75 Hepatitis C Antibody Nonreactive Nonreactive TSH 0.86 MIU/ML 0.34-5.60 Calcium 10.2 mg/dL High 8.1-9.9 76 Liver Function Panel 01/10/2010 Total Protein 7.3 GM/DL 6.2-8.1 Albumin 4.7 GM/DL 3.6-5.4 Globulin 2.6 GM/DL 2-4 Albumin/Globulin Ratio 1.8 1-3 Bilirubin Total 1.0 mg/dL 0.4-1.5 77 Bilirubin Direct 0.1 mg/dL 0.1-0.5 Indirect Bilirubin 0.9 mg/dL High 0.1-0.75 Alkaline Phosphatase 81 U/L 30-110 Alt (SGPT) 60 U/L High 14-54 Ast (Sgot) 60 U/L High 12-42 Laboratory test finding 02/07/2009 Urine Culture Sensitivi NG 78 Urine DIP 02/07/2009 Leukocytes TRACE Neg Urine Nitrites NEG Neg Urine pH 5 5-6 Total Protein, Urine NEG Neg Urine Glucose NORM Norm Urine Ketones NEG Neg Urobilinogen NORM Norm Urine Bilirubin NEG Neg Urine Blood NEG Neg Specific [place] N/A Low 1.01-1.02 Laboratory test finding 12/06/2008 Urine Culture Sensitivi NG 79 Urine DIP 12/06/2008 Leukocytes ++ Neg Urine Nitrites NEG Neg Urine pH 5 5-6 Total Protein, Urine NEG Neg Urine Glucose NORM Norm Urine Ketones NEG Neg Urobilinogen NORM Norm Urine Bilirubin NEG Neg Urine Blood ABOUT 250 Neg Specific [place] NORM Low 1.01-1.02 1 [id number] 2 Because ethnic data is not always readily available, this report includes an eGFR for both -Americans and non- Americans. The National Kidney Disease Education Program (NKDEP) does not endorse the use of the MDRD equation for patients that are not between the ages of 18 and 70, are , have extremes of body size, muscle mass, or nutritional status, or are non- or non-. According to the National Kidney Foundation, irrespective of diagnosis, the stage of the disease is based on the level of kidney function: Stage Description GFR(mL/min/1.73 m(2)) 1 Kidney damage with normal or decreased GFR 90 2 Kidney damage with mild decrease in GFR 60-89 3 Moderate decrease in GFR 30-59 4 Severe decrease in GFR 15-29 5 Kidney failure <15 (or dialysis) 3 [id number] 4 [facility] [address] 5 Because ethnic data is not always readily available, this report includes an eGFR for both -Americans and non- Americans. The National Kidney Disease Education Program (NKDEP) does not endorse the use of the MDRD equation for patients that are not between the ages of 18 and 70, are , have extremes of body size, muscle mass, or nutritional status, or are non- or non-. According to the National Kidney Foundation, irrespective of diagnosis, the stage of the disease is based on the level of kidney function: Stage Description GFR(mL/min/1.73 m(2)) 1 Kidney damage with normal or decreased GFR 90 2 Kidney damage with mild decrease in GFR 60-89 3 Moderate decrease in GFR 30-59 4 Severe decrease in GFR 15-29 5 Kidney failure <15 (or dialysis) 6 [facility] [address] 7 SEE RESULT BELOW Name: ROSS QUIÑONES : [address]: Kaitlyn Madsen MD Acct: [id number] Unit: [id number] AGE: 60 Location: [facility] Re05/27/16 SEX: F Status: REG REF SPEC: [id number] NOAH: 05/27/[address]: Jessica Rajput NP REQ: [id number] RECD: 05/27/16 STATUS: COMP _ SOURCE: URINE SPDESC: ORDERED: Urine Culture COMMENTS: [facility] [address] Procedure Result Reported Site Urine Culture Final 05/29/16815 ML No Growth (<1,000 CFU/mL) * ML - MAIN LAB ([facility]) . END OF REPORT * ML=Testing performed at Main Lab DEPARTMENT OF PATHOLOGY, [address] [place] [address] Wale Puente M.D. Director [facility] # [id number] 10 Because ethnic data is not always readily available, this report includes an eGFR for both -Americans and non- Americans. The National Kidney Disease Education Program (NKDEP) does not endorse the use of the MDRD equation for patients that are not between the ages of 18 and 70, are , have extremes of body size, muscle mass, or nutritional status, or are non- or non-. According to the National Kidney Foundation, irrespective of diagnosis, the stage of the disease is based on the level of kidney function: Stage Description GFR(mL/min/1.73 m(2)) 1 Kidney damage with normal or decreased GFR 90 2 Kidney damage with mild decrease in GFR 60-89 3 Moderate decrease in GFR 30-59 4 Severe decrease in GFR 15-29 5 Kidney failure <15 (or dialysis) 11 Because ethnic data is not always readily available, this report includes an eGFR for both -Americans and non- Americans. The National Kidney Disease Education Program (NKDEP) does not endorse the use of the MDRD equation for patients that are not between the ages of 18 and 70, are , have extremes of body size, muscle mass, or nutritional status, or are non- or non-. According to the National Kidney Foundation, irrespective of diagnosis, the stage of the disease is based on the level of kidney function: Stage Description GFR(mL/min/1.73 m(2)) 1 Kidney damage with normal or decreased GFR 90 2 Kidney damage with mild decrease in GFR 60-89 3 Moderate decrease in GFR 30-59 4 Severe decrease in GFR 15-29 5 Kidney failure <15 (or dialysis) 12 Because ethnic data is not always readily available, this report includes an eGFR for both -Americans and non- Americans. The National Kidney Disease Education Program (NKDEP) does not endorse the use of the MDRD equation for patients that are not between the ages of 18 and 70, are , have extremes of body size, muscle mass, or nutritional status, or are non- or non-. According to the National Kidney Foundation, irrespective of diagnosis, the stage of the disease is based on the level of kidney function: Stage Description GFR(mL/min/1.73 m(2)) 1 Kidney damage with normal or decreased GFR 90 2 Kidney damage with mild decrease in GFR 60-89 3 Moderate decrease in GFR 30-59 4 Severe decrease in GFR 15-29 5 Kidney failure <15 (or dialysis) 13 Critical Result K:2.0 Called to [id number] at: 17:21:32 by:[email or web address] Read back by:[id number] Critical Result CO2:42 Called to [id number] at: 17:21:32 by:[id number] Read back by:[id number] Reference Range and Interpretation: TnI (ng/mL) Interpretation Less Than 0.03 ng/mL Not supportive of diagnosis of OR 0.03 - 0.50 ng/mL Indeterminate: suggest serial studies if clinically indicated. Greater than 0.5 ng/mL Consistent with diagnosis of OR 16 Normal Range 180 to 914 Indeterminate Range 145 to 180 Deficient Range <145 17 Because ethnic data is not always readily available, this report includes an eGFR for both -Americans and non- Americans. The National Kidney Disease Education Program (NKDEP) does not endorse the use of the MDRD equation for patients that are not between the ages of 18 and 70, are , have extremes of body size, muscle mass, or nutritional status, or are non- or non-. According to the National Kidney Foundation, irrespective of diagnosis, the stage of the disease is based on the level of kidney function: Stage Description GFR(mL/min/1.73 m(2)) 1 Kidney damage with normal or decreased GFR 90 2 Kidney damage with mild decrease in GFR 60-89 3 Moderate decrease in GFR 30-59 4 Severe decrease in GFR 15-29 5 Kidney failure <15 (or dialysis) 18 Verbal to [id number] by [id number] at 1510 on 07/12/15. Results read back accurately. --- 07/12/15 1510 --- Potassium previously reported as: 1.9 *P mmol/L 19 Verbal to [id number] by [id number] at 1510 on 07/12/15. Results read back accurately. --- 07/12/15 1510 --- CO2 previously reported as: 43 *P mmol/L 20 Verbal to [id number] by [email or web address] at 1510 on 07/12/15. Results read back accurately. --- 07/12/15 1510 --- Anion Gap previously reported as: 7 mmol/L 21 >100 to <200 pg/mL: likely compensated congestive heart failure (CHF) 200 to 400 pg/mL: likely moderate CHF >400 pg/mL: likely moderate to severe CHF 22 Effective immediately, due to a laboratory mean normal Protime change, the reference range for the INR has changed. 23 Because ethnic data is not always readily available, this report includes an eGFR for both -Americans and non- Americans. The National Kid[employer] Education Program (NKDEP) does not endorse the use of the MDRD equation for patients that are not between the ages of 18 and 70, are , have extremes of body size, muscle mass, or nutritional status, or are non- or non-. According to the [employer], irrespective of diagnosis, the stage of the disease is based on the level of kidney function: Stage Description GFR(mL/min/1.73 m(2)) 1 Kidney damage with normal or decreased GFR 90 2 Kidney damage with mild decrease in GFR 60-89 3 Moderate decrease in GFR 30-59 4 Severe decrease in GFR 15-29 5 Kidney failure <15 (or dialysis) 24 >100 to <200 pg/mL: likely compensated congestive heart failure (CHF) 200 to 400 pg/mL: likely moderate CHF >400 pg/mL: likely moderate to severe CHF 25 Because ethnic data is not always readily available, this report includes an eGFR for both -Americans and non- Americans. The National Kidney Disease Education Program (NKDEP) does not endorse the use of the MDRD equation for patients that are not between the ages of 18 and 70, are , have extremes of body size, muscle mass, or nutritional status, or are non- or non-. According to the National Kidney Foundation, irrespective of diagnosis, the stage of the disease is based on the level of kidney function: Stage Description GFR(mL/min/1.73 m(2)) 1 Kidney damage with normal or decreased GFR 90 2 Kidney damage with mild decrease in GFR 60-89 3 Moderate decrease in GFR 30-59 4 Severe decrease in GFR 15-29 5 Kidney failure <15 (or dialysis) 26 REFERENCE VALUE Cutoff: 100 27 REFERENCE VALUE Cutoff: 100 28 ADDITIONAL INFORMATION This report is intended for use in clinical monitoring and management of patients. It is not intended for use in employment-related testing. Test Performed by: [address] [address] Sleep Scientist: Emmanuel Mcintosh II, M.D., Ph.D. 29 REFERENCE VALUE Cutoff: 500 30 REFERENCE VALUE Cutoff: 200 31 REFERENCE VALUE Cutoff: 200 32 REFERENCE VALUE Cutoff: 150 33 REFERENCE VALUE Cutoff: 150 34 REFERENCE VALUE Cutoff: 300 35 ADDITIONAL INFORMATION This report is intended for use in clinical monitoring or management of patients. It is not intended for use in employment-related testing. 36 Presumptive Positive Drug confirmation to follow. Presumptive Positive means that the screening method is positive, but the test needs to be run by a confirmatory method before being finalized. REFERENCE VALUE Cutoff: 100 ADDITIONAL INFORMATION This report is intended for use in clinical monitoring or management of patients. It is not intended for use in employment-related testing. Test Performed by: [facility] [place] [address] Sleep Scientist: Emmanuel Mcintosh II, M.D., Ph.D. 37 Because ethnic data is not always readily available, this report includes an eGFR for both -Americans and non- Americans. The National Kidney Disease Education Program (NKDEP) does not endorse the use of the MDRD equation for patients that are not between the ages of 18 and 70, are , have extremes of body size, muscle mass, or nutritional status, or are non- or non-. According to the National Kidney Foundation, irrespective of diagnosis, the stage of the disease is based on the level of kidney function: Stage Description GFR(mL/min/1.73 m(2)) 1 Kidney damage with normal or decreased GFR 90 2 Kidney damage with mild decrease in GFR 60-89 3 Moderate decrease in GFR 30-59 4 Severe decrease in GFR 15-29 5 Kidney failure <15 (or dialysis) 38 Because ethnic data is not always readily available, this report includes an eGFR for both -Americans and non- Americans. The National Kidney Disease Education Program (NKDEP) does not endorse the use of the MDRD equation for patients that are not between the ages of 18 and 70, are , have extremes of body size, muscle mass, or nutritional status, or are non- or non-. According to the National Kidney Foundation, irrespective of diagnosis, the stage of the disease is based on the level of kidney function: Stage Description GFR(mL/min/1.73 m(2)) 1 Kidney damage with normal or decreased GFR 90 2 Kidney damage with mild decrease in GFR 60-89 3 Moderate decrease in GFR 30-59 4 Severe decrease in GFR 15-29 5 Kidney failure <15 (or dialysis) 39 Desirable <150 Borderline high 150-199 High 200-499 Very High >500 40 Desirable <200 Borderline high 200-239 High >239 41 Low <40 Desirable: 40-60 High: >60 42 Desirable <100 Near Optimal 100-129 Borderline high 130-159 High 160-189 Very High >189 43 RUN DATE: 05/30/13 [facility] LAB LIVE PAGE 1 RUN TIME: 500[address] [place], [place] [address] Specimen Inquiry Name: ROSS GATES : [address]: Jessica Rajput NP Acct: [id number] Unit: [id number] AGE: 57 Location: [facility] Re05/28/13 SEX: F Status: REG REF SPEC: [id number] NOAH: 05/28/[address]: Jessica Rajput NP REQ: [id number] RECD: 05/28/13 STATUS: COMP _ SOURCE: URINE SPDESC: ORDERED: Urine Culture QUERIES: Medent Number [id number] Procedure Result Verified Site Urine Culture Final 05/30/13- 1535 ML No Growth Day 2 (<1,000 CFU/mL) END OF REPORT * ML=Testing performed at Main Lab DEPARTMENT OF PATHOLOGY, [address] [place] [address] Wale Puente M.D. Director [facility] Permit #[id number] 44 Because ethnic data is not always readily available, this report includes an eGFR for both -Americans and non- Americans. The National Kidney Disease Education Program (NKDEP) does not endorse the use of the MDRD equation for patients that are not between the ages of 18 and 70, are , have extremes of body size, muscle mass, or nutritional status, or are non- or non-. According to the National Kidney Foundation, irrespective of diagnosis, the stage of the disease is based on the level of kidney function: Stage Description GFR(mL/min/1.73 m(2)) 1 Kidney damage with normal or decreased GFR 90 2 Kidney damage with mild decrease in GFR 60-89 3 Moderate decrease in GFR 30-59 4 Severe decrease in GFR 15-29 5 Kidney failure <15 (or dialysis) 45 Therapeutic target for the treatment of diabetes Mellitus patients is <7% HBA1C, and in selective patients <6.0%.Please refer to [employer] Diabetic care guidelines for further information. 46 HDL Interpretation: Undesirable: High Risk: Less than 40 mg/dL Desirable: Low Risk: Greater than 60 mg/dL 47 LDL Interpretation: Low Risk Optimal Level: LDL Less than 100 mg/dL Near or Above Optimal: LDL 100-129 mg/dL Borderline High Risk: LDL 130-159 mg/dL High Risk: LDL 160-189 mg/dL Very High Risk: LDL Greater than 189 mg/dL 48 Because ethnic data is not always readily available, this report includes an eGFR for both -Americans and non- Americans. The National Kidney Disease Education Program (NKDEP) does not endorse the use of the MDRD equation for patients that are not between the ages of 18 and 70, are , have extremes of body size, muscle mass, or nutritional status, or are non- or non-. According to the National Kidney Foundation, irrespective of diagnosis, the stage of the disease is based on the level of kidney function: Stage Description GFR(mL/min/1.73 m(2)) 1 Kidney damage with normal or decreased GFR 90 2 Kidney damage with mild decrease in GFR 60-89 3 Moderate decrease in GFR 30-59 4 Severe decrease in GFR 15-29 5 Kidney failure <15 (or dialysis) 49 RUN DATE: 12/19/12 [facility] LAB LIVE PAGE 1 RUN TIME: [address] [place] [address] Specimen Inquiry Name: MANOJ KIMBERLYROSS Edilson : [address]: Madeline Hernandez NP Acct: [id number] Unit: [id number] AGE: 57 Location: [facility] Re12/17/12 SEX: F Status: REG REF SPEC: [id number] NOAH: 12/17/[address]: Madeline Hernandez NP REQ: [id number] RECD: 12/17/12 STATUS: COMP _ SOURCE: URINE SPDESC: ORDERED: Urine Culture QUERIES: Medent Number [id number] Procedure Result Verified Site Urine Culture Final 12/19/12- 0837 ML Organism 1 NORMAL KENYON [place] Count 1-10,000 (Few) CFU/ML END OF REPORT * ML=Testing performed at Main Lab DEPARTMENT OF PATHOLOGY, [facility] [employer] [place], [place] [address] Wale Puente M.D. Director [facility] Permit #[id number] 50 RUN DATE: 07/31/12 [facility] LAB LIVE PAGE 1 RUN TIME: 1254 [facility] [place], [place] [address] Specimen Inquiry Name: ROSS QUIÑONES : [address]: Tena CHAUDHRY,Kaitlyn Gill Acct: [id number] Unit: [id number] AGE: 56 Location: [facility] Re07/30/12 SEX: F Status: REG REF SPEC: [id number] NOAH: 07/30/12-[address] [facility] [address]: Tena CHAUDHRY, Kaitlyn Gill REQ: [id number] RECD: 07/30/12 STATUS: RES _ SOURCE: CERVIX SPDESC: ORDERED: Genital Culture QUERIES: Medent Number [id number] Procedure Result Verified Site Genital Culture Preliminary 07/31/12- 1253 ML <No reportable results for this procedure> END OF REPORT * ML=Testing performed at Main Lab DEPARTMENT OF PATHOLOGY, [facility] [employer] [place], [place] [address] Wale Puente M.D. Director [facility] Permit #[id number] 51 RUN DATE: 07/06/12 [facility] LAB LIVE PAGE 1 RUN TIME: 1233 [address] [facility] [place], [place] [address] Specimen Inquiry Name: ANDRE SAM : [birth year][address]: Jessica Rajput NP Acct: [id number] Unit: [id number] AGE: 54 Location: [facility] Re07/03/12 SEX: F Status: REG REF SPEC: [id number] NOAH: 07/03/[address] [facility] [facility] [address]: Jessica Rajput NP REQ: [id number] RECD: 07/06/12 STATUS: SOUT _ ORDERED: IMAGE ANALYSIS Negative for Intraepithelial lesion or Malignancy A. Ectocervical/Endocervical Specimen Adequacy: Satisfactory of evaluation Transformation zone component identified No menstrual history given Patient Information: HPV: Thin Layer Pap Test w/reflex to high risk HPV DNA testing when ASCUS Actual Specimen Date: 07/03/12 LMP If Unknown: Last Menstrual Period Not Given. Date of Last Specimen: 07/05/11 Signed (signature on file) MANDI Bryant (ASCP) 07/06/12 1233 This Pap test was evaluated with the assistance of the [employer] Test Imaging System. Due to cytologic findings at the assistant manager trainee microscope, comprehensive manual rescreening by a Leasing Associate may be required. The Pap Smear is a screening test designed to aid in the detection of premalignant and malignant conditions of the uterine cervix. It is not a diagnostic procedure and should not be used as the sole means of detecting cervical cancer. Both false- positive and false- negative reports do occur. Depending on your risk status, a Pap smear shoudl be obtained and evaluated every 1-3 years. END OF REPORT * ML=Testing performed at Main Lab DEPARTMENT OF PATHOLOGY, [facility] [employer] [place] [address] Wale Puente M.D. Director [facility] Permit #[id number] 52 RUN DATE: 07/06/12 [facility] LAB LIVE PAGE 1 RUN TIME: 951 [facility] [place], [place] [address] Specimen Inquiry Name: ROSS QUIÑONES : [address]: Madeline Hernandez NPt: [id number] Unit: [id number] AGE: 56 Location: [facility] Re06/26/12 SEX: F Status: REG REF SPEC: [id number] NOAH: 06/26/12-[address]: Madeline Hernandez NP REQ: [id number] RECD: 06/29/12 STATUS: SOUT _ ORDERED: IMAGE ANALYSIS Negative for Intraepithelial lesion or Malignancy A. Ectocervical/Endocervical Specimen Adequacy: Satisfactory of evaluation Transformation zone component identified Patient Information: HPV: Thin Layer Pap Test w/reflex to high risk HPV DNA testing when ASCUS Actual Specimen Date: 06/26/12 Post Menopausal?: Y Signed (signature on file) MANDI Bryant (ASCP) 07/06/12 0952 This Pap test was evaluated with the assistance of the [employer] Test Imaging System. Due to cytologic findings at the assistant manager trainee microscope, comprehensive manual rescreening by a Leasing Associate may be required. The Pap Smear is a screening test designed to aid in the detection of premalignant and malignant conditions of the uterine cervix. It is not a diagnostic procedure and should not be used as the sole means of detecting cervical cancer. Both false- positive and false- negative reports do occur. Depending on your risk status, a Pap smear shoudl be obtained and evaluated every 1-3 years. END OF REPORT * ML=Testing performed at Main Lab DEPARTMENT OF PATHOLOGY, [facility] [employer] [place], [place] [address] Wale Puente M.D. Director [facility] Permit #[id number] 53 RUN DATE: 06/27/12 [facility] LAB LIVE PAGE 1 RUN TIME: 1410 [facility] [place], [place] [address] Specimen Inquiry Name: ROSS QUIÑONES : [address]: Madeline Hernandez NP Acct: [id number] Unit: [id number] AGE: 56 Location: [facility] Re06/26/12 SEX: F Status: REG REF SPEC: [id number] NOAH: 06/26/12-[address]: Madeline Hernandez NP REQ: [id number] RECD: 06/26/12 STATUS: RES _ SOURCE: NO SOURCE SPDESC: ORDERED: Genital Culture, Affirm COMMENTS: CERVIX QUERIES: Medent Number [id number] Procedure Result Verified Site Genital Culture Preliminary 06/27/12- 5839 ML Organism 1 STREP GROUP B Quantity 3+ Susceptibility testing of penicillins and other B-lactams approved by FDA for treatment of Streptococcus pyogenes (Group A Strep) and Streptococcus agalactiae (Group B Strep) is not necessary for clinical purposes and need not be done routinely, since as with vancomycin, resistant strains have not been recognized. (CLSI B132-Z18;p.66) Positive isolates will be saved for one week. Please call the Microbiology Laboratory if further susceptibility testing is needed. Affirm Vaginal DNA Probe Final 06/27/12- 1410 ML Trichomonas Negative Gardnerella Positive Marcia Negative The presence of G. vaginalis, although suggestive, is not diagnostic for bacterial vaginosis. Results should be interpreted in conjunction with other clinical and laboratory data available. Women with vaginal discharge should be evaluated for risk factors of cervicitis and pelvic inflammatory disease, toxic shock syndrome (S.aureus), and if present, evaluated for organisms not included in this assay such as N. gonorrhoeae, C. trachomatis, Mobiluncus, Mycoplasma and/or Prevotella. CONTINUED ON NEXT PAGE * ML=Testing performed at Main Lab DEPARTMENT OF PATHOLOGY, [facility] [employer] [place] [address] Wale Puente M.D. Director [facility] Permit #[id number] RUN DATE: 06/27/12 [facility] LAB LIVE PAGE 2 RUN TIME: 1409 [facility] [place], [place] [address] Specimen Inquiry Patient: ROSS QUIÑONES [id number] (Continued) Specimen: [id number] Collected: 06/26/12-1152 Received: 06/26/12 (Continued) Procedure Result Verified Site Affirm Vaginal DNA Probe Final (continued) 06/27/12- 141 Mixed infections may occur. The performance of this test on patient specimens collected during or immediately after antimicrobial therapy is unknown. The presence or absence of Marcia species, G. vaginalis or T. vaginalis cannot be used as a test for therapeutic success or failure. END OF REPORT * ML=Testing performed at Main Lab DEPARTMENT OF PATHOLOGY, [address] [place] [address] Wale Puente M.D. Director [facility] Permit #[id number] 54 RUN DATE: 06/28/12 [facility] LAB LIVE PAGE 1 RUN TIME: [address] [place] [address] Specimen Inquiry Name: ROSS QUIÑONES : [address]: Madeline Hernandez NP Acct: [id number] Unit: [id number] AGE: 56 Location: [facility] Re06/26/12 SEX: F Status: REG REF SPEC: [id number] NOAH: 06/26/[address]: Madeline Hernandez NP REQ: [id number] RECD: 06/26/12 STATUS: COMP _ SOURCE: NO SOURCE SPDESC: ORDERED: Genital Culture, Affirm COMMENTS: CERVIX QUERIES: Medent Number [id number] Procedure Result Verified Site Genital Culture Final 06/28/12- 1353 ML Organism 1 STREP GROUP B Quantity 3+ Organism 2 NORMAL KENYON Quantity 1+ Susceptibility testing of penicillins and other B-lactams approved by FDA for treatment of Streptococcus pyogenes (Group A Strep) and Streptococcus agalactiae (Group B Strep) is not necessary for clinical purposes and need not be done routinely, since as with vancomycin, resistant strains have not been recognized. (CLSI Q608-Q03;p.66) Positive isolates will be saved for one week. Please call the Microbiology Laboratory if further susceptibility testing is needed. Affirm Vaginal DNA Probe Final 06/27/12- 1410 ML Trichomonas Negative Gardnerella Positive Marcia Negative The presence of G. vaginalis, although suggestive, is not diagnostic for bacterial vaginosis. Results should be interpreted in conjunction with other clinical and laboratory data available. Women with vaginal discharge should be evaluated for risk factors of cervicitis and pelvic inflammatory disease, toxic shock syndrome (S.aureus), and if present, evaluated for CONTINUED ON NEXT PAGE * ML=Testing performed at Main Lab DEPARTMENT OF PATHOLOGY, [facility] [employer] [place], [place] [address] Wale Puente M.D. Director [facility] Permit #[id number] RUN DATE: 06/28/12 [facility] LAB LIVE PAGE 2 RUN TIME: 1344 [facility] [place], [place] [address] Specimen Inquiry Patient: ROSS QUIÑONES [id number] (Continued) Specimen: [id number] Collected: 06/26/12 Received: 06/26/12 (Continued) Procedure Result Verified Site Affirm Vaginal DNA Probe Final (continued) 06/27/12- 1410 organisms not included in this assay such as N. gonorrhoeae, C. trachomatis, Mobiluncus, Mycoplasma and/or Prevotella. Mixed infections may occur. The performance of this test on patient specimens collected during or immediately after antimicrobial therapy is unknown. The presence or absence of Marcia species, G. vaginalis or T. vaginalis cannot be used as a test for therapeutic success or failure. END OF REPORT * ML=Testing performed at Main Lab DEPARTMENT OF PATHOLOGY, [address] [place] [address] Wale Puente M.D. Director [facility] Permit #[id number] 55 Anion gap measurement may be of limited value in the presence of any alkalosis, especially in a combined acid base disorder. . 56 A metabolite of Naproxen, O-desmethylnaproxen, has been shown to interfere with the Jendrassik-[place] method for measuring total bilirubin. Samples from patients who have taken Naproxen have shown spurious elevation in total bilirubin levels. 57 Because ethnic data is not always readily available, this report includes an eGFR for both -Americans and non- Americans. The National Kidney Disease Education Program (NKDEP) does not endorse the use of the MDRD equation for patients that are not between the ages of 18 and 70, are , have extremes of body size, muscle mass, or nutritional status, or are non- or non-. According to the National Kidney Foundation, irrespective of diagnosis, the stage of the disease is based on the level of kidney function: Stage Description GFR(mL/min/1.73 m(2)) 1 Kidney damage with normal or decreased GFR 90 2 Kidney damage with mild decrease in GFR 60-89 3 Moderate decrease in GFR 30-59 4 Severe decrease in GFR 15-29 5 Kidney failure <15 (or dialysis) 58 Anion gap measurement may be of limited value in the presence of any alkalosis, especially in a combined acid base disorder. . 59 A metabolite of Naproxen, O-desmethylnaproxen, has been shown to interfere with the Jendrassik-[place] method for measuring total bilirubin. Samples from patients who have taken Naproxen have shown spurious elevation in total bilirubin levels. 60 Because ethnic data is not always readily available, this report includes an eGFR for both -Americans and non- Americans. The National Kidney Disease Education Program (NKDEP) does not endorse the use of the MDRD equation for patients that are not between the ages of 18 and 70, are , have extremes of body size, muscle mass, or nutritional status, or are non- or non-. According to the National Kidney Foundation, irrespective of diagnosis, the stage of the disease is based on the level of kidney function: Stage Description GFR(mL/min/1.73 m(2)) 1 Kidney damage with normal or decreased GFR 90 2 Kidney damage with mild decrease in GFR 60-89 3 Moderate decrease in GFR 30-59 4 Severe decrease in GFR 15-29 5 Kidney failure <15 (or dialysis) 61 Anion gap measurement may be of limited value in the presence of any alkalosis, especially in a combined acid base disorder. . 62 A metabolite of Naproxen, O-desmethylnaproxen, has been shown to interfere with the Jendrassik-[place] method for measuring total bilirubin. Samples from patients who have taken Naproxen have shown spurious elevation in total bilirubin levels. 63 Because ethnic data is not always readily available, this report includes an eGFR for both -Americans and non- Americans. The National Kidney Disease Education Program (NKDEP) does not endorse the use of the MDRD equation for patients that are not between the ages of 18 and 70, are , have extremes of body size, muscle mass, or nutritional status, or are non- or non-. According to the National Kidney Foundation, irrespective of diagnosis, the stage of the disease is based on the level of kidney function: Stage Description GFR(mL/min/1.73 m(2)) 1 Kidney damage with normal or decreased GFR 90 2 Kidney damage with mild decrease in GFR 60-89 3 Moderate decrease in GFR 30-59 4 Severe decrease in GFR 15-29 5 Kidney failure <15 (or dialysis) 64 CHOLESTEROL INTERPRETATION: Desirable: Less than 200 MG/DL Borderline-High Risk: 200-239 MG/DL High-Risk: 240 MG/DL and over 65 HDL INTERPRETATION: Undesirable: High Risk: Less than 40 MG/DL Desirable: Low Risk: Greater than 60 MG/DL 66 LDL INTERPRETATION: Low Risk Optimal Level: LDL Less than 100 MG/DL Near or Above Optimal: LDL 100-129 MG/DL Borderline High Risk: LDL 130-159 MG/DL High Risk: LDL 160-189 MG/DL Very High Risk: LDL Greater than 189 MG/DL 67 A metabolite of Naproxen, O-desmethylnaproxen, has been shown to interfere with the Jendrassik-Lucina method for measuring total bilirubin. Samples from patients who have taken Naproxen have shown spurious elevation in total bilirubin levels. 68 Please note updated reference range, effective 03/08/10 69 Anion gap measurement may be of limited value in the presence of any alkalosis, especially in a combined acid base disorder. . 70 Because ethnic data is not always readily available, this report includes an eGFR for both -Americans and non- Americans. The National Kidney Disease Education Program (NKDEP) does not endorse the use of the MDRD equation for patients that are not between the ages of 18 and 70, are , have extremes of body size, muscle mass, or nutritional status, or are non- or non-. According to the National Kidney Foundation, irrespective of diagnosis, the stage of the disease is based on the level of kidney function: Stage Description GFR(mL/min/1.73 m(2)) 1 Kidney damage with normal or decreased GFR 90 2 Kidney damage with mild decrease in GFR 60-89 3 Moderate decrease in GFR 30-59 4 Severe decrease in GFR 15-29 5 Kidney failure <15 (or dialysis) 71 Please note updated reference range, effective 03/08/10 72 Anion gap measurement may be of limited value in the presence of any alkalosis, especially in a combined acid base disorder. . 73 A metabolite of Naproxen, O-desmethylnaproxen, has been shown to interfere with the Jendrassik-Lucina method for measuring total bilirubin. Samples from patients who have taken Naproxen have shown spurious elevation in total bilirubin levels. 74 Because ethnic data is not always readily available, this report includes an eGFR for both -Americans and non- Americans. The National Kidney Disease Education Program (NKDEP) does not endorse the use of the MDRD equation for patients that are not between the ages of 18 and 70, are , have extremes of body size, muscle mass, or nutritional status, or are non- or non-. According to the National Kidney Foundation, irrespective of diagnosis, the stage of the disease is based on the level of kidney function: Stage Description GFR(mL/min/1.73 m(2)) 1 Kidney damage with normal or decreased GFR 90 2 Kidney damage with mild decrease in GFR 60-89 3 Moderate decrease in GFR 30-59 4 Severe decrease in GFR 15-29 5 Kidney failure <15 (or dialysis) 75 Test Performed by: [facility] Dpt of Lab Med and Pathology [address] [place], [place] [id number] Sleep Scientist: Robert Mcnally III, M.D. 76 Please note change in reference range effective 08 . 77 A metabolite of Naproxen, O-desmethylnaproxen, has been shown to interfere with the [place] method for measuring total bilirubin. Samples from patients who have taken Naproxen have shown spurious elevation in total bilirubin levels. 78 FINAL: NO GROWTH DAY 2 (<1,000 CFU/mL) 79 FINAL: NO GROWTH DAY 2 (<1,000 CFU/mL) Procedures Date CPT Code Description Status 05/31/2015 50847 EKG, at Least 12 Leads w/Interpretation and Report Completed Encounters Type Date Location Provider CPT E/M Dx Office Visit 03/18/2018 10:30a Main Office Kaitlyn Madsen M.D., R.D. 78558 M54.5 M13.0 I42.9 I10 Office Visit 01/14/2018 11:30a Main Office Kaitlyn Madsen M.D., R.D. 78630 I10 I42.9 R60.9 E87.6 E83.42 E87.1 M54.5 Office Visit 12/01/2017 2:30p Main Office Kaitlyn Madsen M.D., R.D. 39917 I10 I42.9 R60.9 D48.5 B37.2 Office Visit 05/07/2017 3:45p Main Office Kaitlyn Madsen M.D., R.D. 41980 S80.10xA S85.802A G47.00 Office Visit 12/09/2016 2:30p Main Office Kaitlyn Madsen M.D., R.D. 65832 I10 I42.9 E87.6 E87.1 F32.9 Office Visit 05/27/2016 4:00p Main Office GODWIN Gibbons 95564 N39.0 E87.1 E87.6 Office Visit 05/06/2016 3:00p Main Office Kaitlyn Madsen M.D., R.D. 98095 I42.9 I10 F32.9 E87.1 D64.9 M15.0 R61 Office Visit 11/06/2015 2:45p Main Office Kaitlyn Madsen M.D., R.D. 97337 M16.9 I42.9 I10 F32.9 Office Visit 09/27/2015 3:00p Main Office Kaitlyn Madsen M.D., R.DEmilie 29735 M25.552 L20.9 Office Visit 07/26/2015 11:30a Main Office Kaitlyn Madsen M.D., R.DEmilie 31413 R29.6 I95.89 S46.012D S42.035S S22.42xD F99 Office Visit 07/12/2015 10:30a Main Office Kaitlyn Madsen M.D., Hayes.Alexandra 22361 R29.6 S19.9xxA Office Visit 06/09/2015 10:15a Main Office Kaitlyn Madsen M.D., R.DEmilie 34105 R60.9 I42.9 R68.2 M25.50 F41.9 Office Visit 05/31/2015 11:30a Main Office Jessica Rajput [facility] 40560 R60.9 I10 I42.9 R00.2 Office Visit 05/26/2015 3:30p Main Office Kaitlyn Madsen M.D., R.DEmilie 86671 R42 I10 I42.9 Office Visit 12/19/2014 11:00a Main Office Kaitlyn Madsen M.D., R.DEmilie 80863 425.4 724.5 719.49 Office Visit 06/01/2014 10:30a Main Office Kaitlyn Madsen M.D., R.DEmilie 86969 724.5 425.4 719.49 Office Visit 11/22/2013 11:00a Main Office Kaitlyn Madsen M.D., R.DEmilie 84109 425.4 311 780.52 719.49 Office Visit 06/17/2013 10:15a Main Office Kaitlyn Madsen M.D., R.DEmilie 67754 599.0 719.46 719.41 995.3 794.8 530.81 V03.82 Office Visit 05/28/2013 10:15a Main Office Jessica RajputGODWIN 56069 599.0 Office Visit 03/17/2013 9:45a Main Office Kaitlyn Madsen M.D., R.Alexandra 17015 428.0 309.0 465.9 715.09 Office Visit 02/23/2013 9:45a Main Office GODWIN Rosales 58111 428.0 Office Visit 02/15/2013 11:45a Main Office Kaitlyn Madsen M.D., R.Alexandra 30539 311 719.46 414.01 789.39 285.8 276.1 780.52 782.3 Office Visit 12/17/2012 11:00a Main Office GODWIN Rosales 72239 599.0 717.9 Office Visit 09/14/2012 11:00a Main Office Kaitlyn Madsen M.D., R.DEmilie 92239 616.10 Office Visit 07/30/2012 9:45a Main Office Kaitlyn Madsen M.D., R.DEmilie 07047 616.10 724.2 726.19 401.9 782.3 Office Visit 06/26/2012 11:00a Main Office GODWIN Rosales 53478 616.10 Office Visit 03/20/2012 12:00p Main Office GODWIN Rosales 08816 786.50 782.3 Office Visit 03/12/2012 10:00a Main Office Kaitlyn Madsen M.D., R.DEmilie 37193 782.3 724.2 726.19 Office Visit 01/29/2012 10:00a Main Office Kaitlyn Madsen M.D., R.DEmilie 41213 401.9 719.46 724.2 V15.82 794.8 783.21 Office Visit 07/31/2011 10:00a Main Office Kaitlyn Madsen M.D., R.D. 85870 401.9 719.46 724.2 726.19 Office Visit 01/28/2011 9:30a Main Office Kaitlyn Madsen M.D., R.D. 58109 401.9 848.3 719.46 724.2 V15.82 Office Visit 11/19/2010 9:30a Main Office Kaitlyn Madsen M.D., R.DEmilie 21185 401.9 848.3 724.5 794.8 Office Visit 10/23/2010 9:15a Main Office LYUBOV Rosales-C 85546 848.3 Office Visit 10/15/2010 10:15a Main Office Kaitlyn Madsen M.D., R.DEmilie 25638 724.5 401.9 794.8 V15.82 Office Visit 05/21/2010 9:30a Main Office Kaitlyn Madsen M.D., R.DEmilie 23953 719.46 724.5 719.41 796.2 Office Visit 01/10/2010 9:15a Main Office Kaitlyn Madsen M.D., R.DEmilie 72322 794.8 275.42 482.9 Office Visit 02/07/2009 11:45a Main Office Lori Davila 02035 599.89 Office Visit 12/06/2008 8:45a Main Office LYUBOV Rosales-C 41352 724.2 599.0 Office Visit 11/02/2008 11:30a Main Office Kaitlyn Madsen M.D., R.D. 01715 724.2 724.4 Office Visit 10/17/2008 11:00a Main Office Kaitlyn Madsen M.D., R.D. 18063 724.2 724.4 Office Visit 10/05/2008 10:15a Main Office Kaitlyn Madsen M.D., R.D. 32601 724.4 724.2 Plan of Care Future Appointment(s):05/27/2018 10:45 am - Kaitlyn Madsen M.D., R.D. at Main [facility]8403/18/2018 - Kaitlyn Madsen M.D., R.D.M54.5 Low back painM13.0 Polyarthritis, pfoqgosaxctH86.9 Cardiomyopathy, rucgywgaivyF60 Essential ( primary) hypertension
[2018-03-31 21:08] VITALS: BP 142/83
== END 2018-03-31 21:05 | disposition left against medical advice (07) ==
LOC: ED 19:24
DX: T63.441A Toxic effect of venom of bees, accidental (unintentional), initial encounter (principal); R06.02 Shortness of breath; I25.10 Atherosclerotic heart disease of native coronary artery without angina pectoris; I10 Essential (primary) hypertension; F17.210 Nicotine dependence, cigarettes, uncomplicated; E87.1 Hypo-osmolality and hyponatremia; E87.6 Hypokalemia; Y92.9 Unspecified place or not applicable
CPT/HCPCS: 36415; 80053; 83735; 85025; 86140; 93005; 96374; 96375; 99283; A9270-GY; J0171; J1100

== ENCOUNTER 2019-05-02 10:52 | Inpatient (IN) | payer MEDICARE ==
--- NOTE | 2019-05-02 11:16 | ED ---
Adult Trauma - HPI Summary HPI Summary: LEVEL 5 CAVEAT - AMS This patient is a 63 year old F presenting to [facility] by EMS with a chief complaint of fall. Pt was found lying on the ground night of 05/01/19, and this morning. Pt has a PMHx of CHF. Patient reports chronic back pain. Pt believes that her is coming to see her in the ED; however it was reported her is . - History of Current Complaint Stated Complaint: AMS PER EMS Time Seen by Provider: 05/02/19 11:01 Hx Obtained From: Patient Hx From Patient Unobtainable Due To: Altered Mental Status - LEVEL 5 CAVEAT - AMS Mechanism of Injury: Fall Loss of Consciousness: unsure Pain Intensity: 8 Pain Scale Used: 0-10 Numeric - Additional Pertinent History Primary Care Physician: PAYTON - Allergy/Home Medications Allergies/Adverse Reactions: Allergies Allergy/AdvReac Type Severity Reaction Status Date / Time bee venom protein (honey bee) Allergy Severe Anaphylatic Verified 10/07/17 13:25 Shock morphine AdvReac Intermediate Rash Verified 10/07/17 13:25 PMH/Surg Hx/FS Hx/Imm Hx Previously Healthy: No - LEVEL 5 CAVEAT - AMS Endocrine/Hematology History: Denies: Hx Diabetes Cardiovascular History: Reports: Hx Congestive Heart Failure, Hx Coronary Artery Disease, Hx Hypertension, Other Cardiovascular Problems/Disorders - cardiomyopathy Denies: Hx Pacemaker/ICD Respiratory History: Reports: Hx Pleural Effusion - multiple rib fractures with associated PE, Other Respiratory Problems/Disorders - smoker GI History: Reports: Hx Gastroesophageal Reflux Disease History: Denies: Hx Renal Disease Comment Only: Other Problems/Disorders - patient denies Musculoskeletal History: Reports: Hx Arthritis, Hx Back Problems, Hx Fibromyalgia, Hx Osteoporosis, Other Musculoskeletal History - left knee replacement Sensory History: Reports: Hx Contacts or Glasses - READING, Hx Eye Injury - bilateral periorbital ecchymosis since fall 3 ft, Hx Vision Problem Denies: Hx Hearing Aid Opthamlomology History: Reports: Hx Contacts or Glasses - READING, Hx Eye Injury - bilateral periorbital ecchymosis since fall 3 ft, Hx Vision Problem Neurological History: Denies: Other Neuro Impairments/Disorders - PAIN CLINIC PATIENT Psychiatric History: Reports: Hx Anxiety - NO MEDS, Hx Depression - NO MEDS, Hx of Violent Episodes Against Others, Hx Substance Abuse - ETOH ABUSE Denies: Hx Eating Disorder, Hx Panic Disorder - Surgical History Surgery Procedure, Year, and Place: Left Knee Replacement 1993; Knee Arthroplasty x2; tubal;. 2002 [facility] Hx Anesthesia Reactions: No - Family History Known Family History: Positive: Unknown - LEVEL 5 CAVEAT - AMS - Social History Alcohol Use: Weekly Alcohol Amount: 6-8 drinks per week Hx Substance Use: No Substance Use Type: Reports: None Hx Tobacco Use: Yes Smoking Status (MU): Current Every Day Smoker Type: Cigarettes Amount Used/How Often: 1 PPD Length of Time of Smoking/Using Tobacco: 40yrs Have You Smoked in the Last Year: Yes Review of Systems Positive: Other - Chronic Back Pain All Other Systems Reviewed And Are Negative: No - Comments Additional Review of Systems Comments: LEVEL 5 CAVEAT - AMS Physical Exam - Summary Physical Exam Summary: Appearance: The patient is well-nourished in no acute distress and in no acute pain. Skin: The skin is warm and dry, and skin color reflects adequate perfusion. HEENT: The head is normocephalic and atraumatic. The pupils are equal and reactive. The conjunctivae are clear and without drainage. Nares are patent and without drainage. Mouth reveals moist mucous membranes, and the throat is without erythema and exudate. The external ears are intact. The ear canals are patent and without drainage. The tympanic membranes are intact. Neck: The neck is supple with full range of motion and non-tender. There are no carotid bruits. There is no neck vein distension. Respiratory: Chest is non-tender. Upper airway sounds. Cardiovascular: Heart is regular rate and rhythm. There is no murmur or rub auscultated. The pulses are symmetrical and equal. Abdomen: The abdomen is soft and non-tender. There are normal bowel sounds heard in all four quadrants and there is no organomegaly palpated. Musculoskeletal: There is no back tenderness noted. Extremities are non-tender with full range of motion. There is good capillary refill. Mild edema in extremities. Neurological: Patient is alert and oriented to person, place and time. The patient has symmetrical motor strength in all four extremities. Cranial nerves are grossly intact. Deep tendon reflexes are symmetrical and equal in all four extremities. Psychiatric: The patient has an appropriate affect and does not exhibit any anxiety or depression. Triage Information Reviewed: Yes Vital Signs On Initial Exam: Initial Vital Signs Temp 97.2 F 05/02/19 11:23 Pulse 101 09/15/19 11:23 Resp 18 05/02/19 11:23 BP 130/91 05/02/19 11:23 Pulse Ox 97 05/02/19 11:23 Vital Signs Reviewed: Yes - Fortino Coma Scale Best Eye Response: 4 - Spontaneous Best Motor Response: 6 - Obeys Commands Best Verbal Response: 5 - Oriented Coma Scale Total: 15 Diagnostics - Laboratory Result Diagrams: 05/02/19 13:50 05/02/19 13:50 Lab Statement: Any lab studies that have been ordered have been reviewed, and results considered in the medical decision making process. - Radiology CXR Radiology Interpretation Completed By: Radiologist Summary of Radiographic Findings: CXR reveals, per radiologist, IMPRESSION: #. Mild pulmonary vascular congestion and interstitial edema. ED physician has reviewed this radiology report. - CT Brain CT CT Interpretation Completed By: Radiologist Summary of CT Findings: Brain CT reveals, per radiologist, IMPRESSION: #. Negative unenhanced head CT. ED physician has reviewed this radiology report. - EKG 1434 Cardiac Rate: NL EKG Rhythm: Sinus Rhythm EKG Comparison: Other - Similar to but worse than EKG on 03/31/18. Summary of EKG Findings: An EKG at 14:34 reveals normal sinus rhythm 90 bpm, probable anterior lateral ischemia. Similar to but worse than EKG on 03/31/18. Re-Evaluation - Re-Evaluation First Eval Re-Evaluation Time: 11:19 Comment: Pt would like to refuse care. Second Eval Re-Evaluation Time: 12:06 Comment: Pt is refusing care; however pt can not walk and is AMS. Adult Trauma Course/Dx - Course Course Of Treatment: Ms. Neri had a difficult course. She arrived by ambulance with the story that a day or so ago she was found by a friend on the floor. She was helped to her feet walked to the kitchen and had some water and went to bed. This morning she was found by a different friend on the floor covered with blankets that were soaked with urine. She was unable to get up on her own but was able to walk a few steps to the kitchen and then back to the bed. The friend noticed that although she is normally very sharp she was confused. She did not know the day of the week and was talking about her having come to the house to visit her however the friend says he has been for 9 years. Because of the confusion he called the ambulance. When the patient arrived I evaluated her and ordered a head CT, EKG and labs. The patient refused all care adamantly. I spoke with her at length without changing her mind. Her primary nurse spoke with her also. She was oriented to person and place. She thought it was Friday and it is Friday. She knew it was April 2019 but did not know the exact date. She name the season this fall and although technically this is incorrect it is mid April and has been cold for the last several days. She knew the president. When I questioned her about her she had what seemed to be reasonable answers. I was able to get a hold of her friend Walter on the phone. He is the one that found her and reports to me that he knows her well and knows that her has been for 9 years. She states that he's at home visiting her and that he better not be there when she gets back home. At this point it was clear that she was confabulating and I attempted to ambulate her. She was not able to ambulate well. She stated that she use a walker at home and was able to walk to the door of the room and back with the walker. She was very unsteady on her feet and her respiratory rate increased and her pulse ox decreased with this. At this point I did not feel she was competent to make medical decisions. The history we had was that she was a big drinker and I was concerned for possible Wernicke's or Korsakoff's given her confabulation and confusion. She was given a B-52. Labs were obtained at that point she is found to be hyponatremic. Her troponin returned at 0.47 and EKG which she had been refusing was obtained. It showed potential ischemic changes anterolaterally. She had never complained of chest pain however did complain of back pain stating that it was chronic. At this point the hospitalist service was contacted for admission and heparin was ordered. I held a heparin while the hospitalists evaluate the patient. They also held the heparin while Dr. Bradley was contacted. Dr. 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 A head CT had been unremarkable. - Diagnoses Provider Diagnoses: Encephalopathy acute - Physician Notifications Discussed Care Of Patient With: Michel G Moussallem Time Discussed With Above Provider: 15:04 Instructed by Provider To: Other - Discussed case with Dr. Ball, who accepts pt for admission - Critical Care Time Critical Care Time: 30-74 min Discharge ED - Sign-Out/Discharge Documenting (check all that apply): Patient Departure - Admit Patient Received Moderate/Deep Sedation with Procedure: No - Discharge Plan Condition: Guarded Disposition: ADMITTED TO [facility] - Billing Disposition and Condition Condition: GUARDED Disposition: Admitted to [facility] - Attestation Statements Document Initiated by Scribe: Yes Documenting Scribe: Lena Jimenez Provider For Whom Scribe is Documenting (Include Credential): Henok Mclaughlin MD Scribe Attestation: Lena Navarro scribed for Henok Mclaughlin MD on 05/02/19 at 2121. Scribe Documentation Reviewed: Yes Provider Attestation: The documentation as recorded by the eduardoibLena mathur accurately reflects the service I personally performed and the decisions made by Henok correa MD Status of Scribe Document: Viewed
[2019-05-02] MEDS ORDERED: Lorazepam PYXIS KEY ONE ×2 (12:06→17:24)
[2019-05-02] MEDS ORDERED: Haloperidol INJ IV/IM* 5 MG/ML AMP ONE (12:06)
[2019-05-02] MEDS ORDERED: diPHENhydraMINE IV* 50 MG/ML 1 ml VIAL (BENADRYL) ONE (12:07)
[2019-05-02] MEDS ORDERED: LORazepam INJ* 2 MG/ML 1 ML VIAL IM ONE (12:08)
[2019-05-02] MEDS ORDERED: Haloperidol INJ IV/IM* 5 MG/ML AMP IM ONE (12:08)
[2019-05-02] MEDS ORDERED: diPHENhydraMINE IV* 50 MG/ML 1 ml VIAL (BENADRYL) IM ONE (12:08)
[2019-05-02] MEDS ORDERED: Thiamine INJ* 100 MG, Folic Acid IV* 1 MG, Multiple Vitamin IV ADULT* 10 ML in NS 0.9% ... IV ONE (12:10)
[2019-05-02] MEDS ORDERED: Magnesium Sulfate 1 GM IV* 1 GM/100 ML BAG IV ONE (12:12)
[2019-05-02 14:03] LABS: ABS Lymphocytes 0.9 10^3/ul (1.0-4.8); ABS Monocytes 0.5 10^3/ul (0-0.8); ABS Neutrophils 5.9 10^3/ul (1.5-7.7); Eosinophil % 0.1 %; Hematocrit 38 % (35-47); Hemoglobin 13.3 g/dL (12.0-16.0); Lymphocyte % 12.7 %; Mean Corpuscular HGB Conc 35 g/dL (31-36); Mean Corpuscular Hemoglobin 31 pg (27-31); Mean Corpuscular Volume 90 fL (80-97); Mean Platelet Volume 7.8 fL (7.4-10.4); Platelet Count 262 10^3/uL (150-450); Red Blood Count 4.26 10^6 /uL (3.70-4.87); Red Cell Distribution Width 14 % (10-15); White Blood Count 7.4 10^3/uL (3.5-10.8)
[2019-05-02 14:08] LABS: INR 1.09 (0.82-1.09)
[2019-05-02 14:21] LABS: ALT 18 U/L (7-52); AST 42 U/L (13-39); Albumin 3.8 g/dL (3.2-5.2); Albumin/Globulin Ratio 1.5 (1-3); Alkaline Phosphatase 92 U/L (34-104); Anion Gap 15 mmol/L (2-11); Blood Urea Nitrogen 8 mg/dL (6-24); CO2 Carbon Dioxide 19 mmol/L (22-32); Calcium 9.7 mg/dL (8.6-10.3); Chloride 89 mmol/L (101-111); EGFR African American 184.4 (>60); EGFR Non-African American 152.4 (>60); Globulin 2.5 g/dL (2-4); Glucose 86 mg/dL (70-100); Magnesium 1.7 mg/dL (1.9-2.7); Potassium 3.2 mmol/L (3.5-5.0); Sodium 123 mmol/L (135-145); Total Protein 6.3 g/dL (6.4-8.9)
[2019-05-02 14:30] LABS: Troponin I 0.48 ng/mL (<0.04)
[2019-05-02 15:02] LABS: Alcohol < 10 mg/dL (<10)
[2019-05-02 15:14] LABS: TSH (Thyroid Stimulating Horm) 0.29 mcIU/mL (0.34-5.60)
[2019-05-02 15:58] LABS: Urine Appearance Cloudy; Urine Bacteria Absent (Absent); Urine Bilirubin Negative (Negative); Urine Blood 1+ (Negative); Urine Color Yellow; Urine Glucose Negative (Negative); Urine Ketones 2+ (Negative); Urine Nitrite Negative (Negative); Urine Protein Negative (Negative); Urine Red Blood Cell 1+(3-5/hpf) (Absent); Urine Specific Gravity 1.012 (1.010-1.030); Urine Squamous Epithelial Cell Present (Absent); Urine Urobilinogen Negative (Negative); Urine White Blood Cell Trace(0-5/hpf) (Absent)
[2019-05-02 16:14] LABS: Urine Benzodiazepine Screen None Detected (None Detect); Urine Opiates Screen Presumptive Positive (None Detect)
[2019-05-02] MEDS ORDERED: Magnesium Sulfate 2 GM IV* 2 GM/50 ML BAG IVPB ONE (16:33)
[2019-05-02 16:56] LABS: Troponin I 0.56 ng/mL (<0.04)
[2019-05-02] MEDS ORDERED: NS 0.9% 1000 ML** 1,000 ML IV ONE (16:57)
[2019-05-02] MEDS ORDERED: Heparin DRIP 25,000 UNITS(*) 25,000 UNITS/500 ML BAG IV SCH (17:15)
[2019-05-02] MEDS ORDERED: LORazepam INJ* 2 MG/ML 1 ML VIAL IV PUSH ONE (17:25)
[2019-05-02] MEDS ORDERED: Lorazepam PYXIS KEY PRN (17:25)
[2019-05-02] MEDS ORDERED: Aspirin SUPP* 300 MG PR ONE (17:29)
[2019-05-02] MEDS ORDERED: NS 0.9% 1000 ML** 1,000 ML IV SCH ×2 (17:30→18:08)
[2019-05-02] MEDS ORDERED: Metoprolol Tartrate IV* 1 MG/ML 5 ML VIAL IV PRN ×2 (17:30→17:43)
[2019-05-02] MEDS ORDERED: LORazepam INJ* 2 MG/ML 1 ML VIAL IV PUSH SCH (18:00)
--- NOTE | 2019-05-02 18:08 | ED ---
Progress - Progress Note Progress Note: This pt is a 63 Y/O F. Asked to place L femoral central line for venous access by Dr. Mclaughlin. Consent able to be obtained as patient is altered. Line emergently placed. Re-Evaluation - Re-Evaluation First Eval Re-Evaluation Time: 11:19 Comment: Pt would like to refuse care. Second Eval Re-Evaluation Time: 12:06 Comment: Pt is refusing care; however pt can not walk and is AMS. Third Eval Comment: Pt was sedated. Course/Dx - Diagnoses Provider Diagnoses: Encephalopathy acute - Provider Notifications Time Discussed With Above Provider: 15:04 Instructed by Provider To: Admit As Inpatient - Discussed case with Dr. Ball, who accepts pt for admission - Critical Care Time Critical Care Time: 30-74 min Discharge ED - Sign-Out/Discharge Documenting (check all that apply): Patient Departure - Discharge Plan Condition: Guarded Disposition: ADMITTED TO [facility] - Billing Disposition and Condition Condition: GUARDED Disposition: Admitted to [facility] - Attestation Statements Document Initiated by Scribe: Yes Documenting Scribe: Huseyin Winston Provider For Whom Scribe is Documenting (Include Credential): Tobias Franklin MD Scribe Attestation: I, Huseyin Winston, scribed for Tobias Franklin MD on 05/02/19 at 1920. Scribe Documentation Reviewed: Yes Provider Attestation: The documentation as recorded by the eduardoibeHuseyin accurately reflects the service I personally performed and the decisions made by me, Tobias Franklin MD Status of Scribe Document: Viewed Procedures - Central Line Central Line Lumen: triple Central Line Procedure: sterile drapes applied Central Line Postion: femoral (L) Anesthesia: Lidocaine Complications: none Central Line Post Position: sutured, good blood return Progress: Time out was called at 1800. The procedure was sterilized in a normal fashion. A sterile dressing was applied and a sterile field was established. US was used to detect the L femoral vein. Procedure was completed at 1825 with a biopatch applied and the entry of the line covered.
[2019-05-02] MEDS ORDERED: levETIRAcetam 1000 MG IVPREMIX* 100 ML BAG IV ONE (18:38)
--- NOTE | 2019-05-02 18:50 | HP ---
H&P (Free Text) History and Physical: Asked to see pt for abnormal ECG and elevated trops. Pt fell last night, friend assisted up. Pt found this AM on the ground by furnace man who knows her, wasn't herself. In ED pt unable to walk, declining services, agitated. Now sedated. PMHx EtOH abuse. NICM: 2012 EF 20%, cath: normal C's. EF Aug 2018 55%. ED work up: CT I- unremarkable. ECG: deeply inverted T's precordial leads (new) Lab Results 05/02/19 05/02/19 05/02/19 Range/Units 13:50 13:50 13:50 WBC 7.4 (3.5-10.8) 10^3/uL RBC 4.26 (3.70-4.87) 10^6 /uL Hgb 13.3 (12.0-16.0) g/dL Hct 38 (35-47) % MCV 90 (80-97) fL MCH 31 (27-31) pg MCHC 35 (31-36) g/dL RDW 14 (10-15) % Plt Count 262 (150-450) 10^3/uL MPV 7.8 (7.4-10.4) fL Neut % (Auto) 79.8 % Lymph % (Auto) 12.7 % Alger % (Auto) 7.1 % Eos % (Auto) 0.1 % Baso % (Auto) 0.3 % Absolute Neuts (auto) 5.9 (1.5-7.7) 10^3/ul Absolute Lymphs (auto) 0.9 L (1.0-4.8) 10^3/ul Absolute Monos (auto) 0.5 (0-0.8) 10^3/ul Absolute Eos (auto) 0.0 (0-0.6) 10^3/ul Absolute Basos (auto) 0.0 (0-0.2) 10^3/ul Absolute Nucleated RBC 0.0 10^3/ul Nucleated RBC % 0.0 INR (Anticoag Therapy) (0.82-1.09) Patient Temperature ABG pH (7.35-7.45) ABG pH (Temp Correct) ABG pCO2 (35-45) mmHg ABG pCO2 (Temp Corrct ABG pO2 (80-100) mmHg ABG pO2 (Temp Correct ABG HCO3 (19-31) mmol/L ABG O2 Saturation (94.0-98.0) % ABG Base Excess (-2.0-2.0) mmol/L Respiration Rate Ventilator Type Vent Mode FiO2 Inspiratory Time PEEP Pressure Support Pressure Control EPAP IPAP BiPAP Sodium 123 L (135-145) mmol/L Potassium 3.2 L (3.5-5.0) mmol/L Chloride 89 L (101-111) mmol/L Carbon Dioxide 19 L (22-32) mmol/L Anion Gap 15 H (2-11) mmol/L BUN 8 (6-24) mg/dL Creatinine 0.42 L (0.51-0.95) mg/dL Est GFR ( Amer) 184.4 (>60) Est GFR (Non-Af Amer) 152.4 (>60) BUN/Creatinine Ratio 19.0 (8-20) Glucose 86 (70-100) mg/dL Lactic Acid 1.1 (0.5-2.0) mmol/L Calcium 9.7 (8.6-10.3) mg/dL Magnesium 1.7 L (1.9-2.7) mg/dL Total Bilirubin 0.90 (0.2-1.0) mg/dL AST 42 H (13-39) U/L ALT 18 (7-52) U/L Alkaline Phosphatase 92 (34-104) U/L Ammonia Troponin I 0.48 H* (<0.04) ng/mL B-Natriuretic Peptide (<=100) pg/mL Total Protein 6.3 L (6.4-8.9) g/dL Albumin 3.8 (3.2-5.2) g/dL Globulin 2.5 (2-4) g/dL Albumin/Globulin Ratio 1.5 (1-3) TSH 0.29 L (0.34-5.60) mcIU/mL Urine Color Urine Appearance Urine pH (5-9) Ur Specific Ulysses (1.010-1.030) Urine Protein (Negative) Urine Ketones (Negative) Urine Blood (Negative) Urine Nitrate (Negative) Urine Bilirubin (Negative) Urine Urobilinogen (Negative) Ur Leukocyte Esterase (Negative) Urine WBC (Auto) (Absent) Urine RBC (Auto) (Absent) Ur Squamous Epith Cells (Absent) Urine Bacteria (Absent) Hyaline Casts (Absent) Urine Glucose (Negative) Urine Opiates Screen (None Detect) Ur Barbiturates Screen (None Detect) Ur Phencyclidine Scrn (None Detect) Ur Amphetamines Screen (None Detect) U Benzodiazepines Scrn (None Detect) Urine Cocaine Screen (None Detect) U Cannabinoids Screen (None Detect) Serum Alcohol < 10 (<10) mg/dL 05/02/19 05/02/19 05/02/19 Range/Units 13:50 13:50 14:41 WBC (3.5-10.8) 10^3/uL RBC (3.70-4.87) 10^6 /uL Hgb (12.0-16.0) g/dL Hct (35-47) % MCV (80-97) fL MCH (27-31) pg MCHC (31-36) g/dL RDW (10-15) % Plt Count (150-450) 10^3/uL MPV (7.4-10.4) fL Neut % (Auto) % Lymph % (Auto) % Alger % (Auto) % Eos % (Auto) % Baso % (Auto) % Absolute Neuts (auto) (1.5-7.7) 10^3/ul Absolute Lymphs (auto) (1.0-4.8) 10^3/ul Absolute Monos (auto) (0-0.8) 10^3/ul Absolute Eos (auto) (0-0.6) 10^3/ul Absolute Basos (auto) (0-0.2) 10^3/ul Absolute Nucleated RBC 10^3/ul Nucleated RBC % INR (Anticoag Therapy) 1.09 (0.82-1.09) Patient Temperature ABG pH (7.35-7.45) ABG pH (Temp Correct) ABG pCO2 (35-45) mmHg ABG pCO2 (Temp Corrct ABG pO2 (80-100) mmHg ABG pO2 (Temp Correct ABG HCO3 (19-31) mmol/L ABG O2 Saturation (94.0-98.0) % ABG Base Excess (-2.0-2.0) mmol/L Respiration Rate Ventilator Type Vent Mode FiO2 Inspiratory Time PEEP Pressure Support Pressure Control EPAP IPAP BiPAP Sodium (135-145) mmol/L Potassium (3.5-5.0) mmol/L Chloride (101-111) mmol/L Carbon Dioxide (22-32) mmol/L Anion Gap (2-11) mmol/L BUN (6-24) mg/dL Creatinine (0.51-0.95) mg/dL Est GFR ( Amer) (>60) Est GFR (Non-Af Amer) (>60) BUN/Creatinine Ratio (8-20) Glucose (70-100) mg/dL Lactic Acid (0.5-2.0) mmol/L Calcium (8.6-10.3) mg/dL Magnesium (1.9-2.7) mg/dL Total Bilirubin (0.2-1.0) mg/dL AST (13-39) U/L ALT (7-52) U/L Alkaline Phosphatase (34-104) U/L Ammonia TNP TNP Troponin I (<0.04) ng/mL B-Natriuretic Peptide 490 H (<=100) pg/mL Total Protein (6.4-8.9) g/dL Albumin (3.2-5.2) g/dL Globulin (2-4) g/dL Albumin/Globulin Ratio (1-3) TSH (0.34-5.60) mcIU/mL Urine Color Urine Appearance Urine pH (5-9) Ur Specific Ulysses (1.010-1.030) Urine Protein (Negative) Urine Ketones (Negative) Urine Blood (Negative) Urine Nitrate (Negative) Urine Bilirubin (Negative) Urine Urobilinogen (Negative) Ur Leukocyte Esterase (Negative) Urine WBC (Auto) (Absent) Urine RBC (Auto) (Absent) Ur Squamous Epith Cells (Absent) Urine Bacteria (Absent) Hyaline Casts (Absent) Urine Glucose (Negative) Urine Opiates Screen (None Detect) Ur Barbiturates Screen (None Detect) Ur Phencyclidine Scrn (None Detect) Ur Amphetamines Screen (None Detect) U Benzodiazepines Scrn (None Detect) Urine Cocaine Screen (None Detect) U Cannabinoids Screen (None Detect) Serum Alcohol (<10) mg/dL 05/02/19 05/02/19 05/02/19 Range/Units 15:10 15:30 15:30 WBC (3.5-10.8) 10^3/uL RBC (3.70-4.87) 10^6 /uL Hgb (12.0-16.0) g/dL Hct (35-47) % MCV (80-97) fL MCH (27-31) pg MCHC (31-36) g/dL RDW (10-15) % Plt Count (150-450) 10^3/uL MPV (7.4-10.4) fL Neut % (Auto) % Lymph % (Auto) % Alger % (Auto) % Eos % (Auto) % Baso % (Auto) % Absolute Neuts (auto) (1.5-7.7) 10^3/ul Absolute Lymphs (auto) (1.0-4.8) 10^3/ul Absolute Monos (auto) (0-0.8) 10^3/ul Absolute Eos (auto) (0-0.6) 10^3/ul Absolute Basos (auto) (0-0.2) 10^3/ul Absolute Nucleated RBC 10^3/ul Nucleated RBC % INR (Anticoag Therapy) (0.82-1.09) Patient Temperature ABG pH (7.35-7.45) ABG pH (Temp Correct) ABG pCO2 (35-45) mmHg ABG pCO2 (Temp Corrct ABG pO2 (80-100) mmHg ABG pO2 (Temp Correct ABG HCO3 (19-31) mmol/L ABG O2 Saturation (94.0-98.0) % ABG Base Excess (-2.0-2.0) mmol/L Respiration Rate Ventilator Type Vent Mode FiO2 Inspiratory Time PEEP Pressure Support Pressure Control EPAP IPAP BiPAP Sodium (135-145) mmol/L Potassium (3.5-5.0) mmol/L Chloride (101-111) mmol/L Carbon Dioxide (22-32) mmol/L Anion Gap (2-11) mmol/L BUN (6-24) mg/dL Creatinine (0.51-0.95) mg/dL Est GFR ( Amer) (>60) Est GFR (Non-Af Amer) (>60) BUN/Creatinine Ratio (8-20) Glucose (70-100) mg/dL Lactic Acid (0.5-2.0) mmol/L Calcium (8.6-10.3) mg/dL Magnesium (1.9-2.7) mg/dL Total Bilirubin (0.2-1.0) mg/dL AST (13-39) U/L ALT (7-52) U/L Alkaline Phosphatase (34-104) U/L Ammonia 30 Troponin I (<0.04) ng/mL B-Natriuretic Peptide (<=100) pg/mL Total Protein (6.4-8.9) g/dL Albumin (3.2-5.2) g/dL Globulin (2-4) g/dL Albumin/Globulin Ratio (1-3) TSH (0.34-5.60) mcIU/mL Urine Color Yellow Urine Appearance Cloudy Urine pH 6.0 (5-9) Ur Specific Ulysses 1.012 (1.010-1.030) Urine Protein Negative (Negative) Urine Ketones 2+ A (Negative) Urine Blood 1+ A (Negative) Urine Nitrate Negative (Negative) Urine Bilirubin Negative (Negative) Urine Urobilinogen Negative (Negative) Ur Leukocyte Esterase Negative (Negative) Urine WBC (Auto) Trace(0-5/hpf) (Absent) Urine RBC (Auto) 1+(3-5/hpf) A (Absent) Ur Squamous Epith Cells Present A (Absent) Urine Bacteria Absent (Absent) Hyaline Casts Present A (Absent) Urine Glucose Negative (Negative) Urine Opiates Screen Presumptive positive A (None Detect) Ur Barbiturates Screen None detected (None Detect) Ur Phencyclidine Scrn None detected (None Detect) Ur Amphetamines Screen None detected (None Detect) U Benzodiazepines Scrn None detected (None Detect) Urine Cocaine Screen None detected (None Detect) U Cannabinoids Screen None detected (None Detect) Serum Alcohol (<10) mg/dL 05/02/19 05/02/19 Range/Units 16:20 17:25 WBC (3.5-10.8) 10^3/uL RBC (3.70-4.87) 10^6 /uL Hgb (12.0-16.0) g/dL Hct (35-47) % MCV (80-97) fL MCH (27-31) pg MCHC (31-36) g/dL RDW (10-15) % Plt Count (150-450) 10^3/uL MPV (7.4-10.4) fL Neut % (Auto) % Lymph % (Auto) % Alger % (Auto) % Eos % (Auto) % Baso % (Auto) % Absolute Neuts (auto) (1.5-7.7) 10^3/ul Absolute Lymphs (auto) (1.0-4.8) 10^3/ul Absolute Monos (auto) (0-0.8) 10^3/ul Absolute Eos (auto) (0-0.6) 10^3/ul Absolute Basos (auto) (0-0.2) 10^3/ul Absolute Nucleated RBC 10^3/ul Nucleated RBC % INR (Anticoag Therapy) (0.82-1.09) Patient Temperature Not Reportable ABG pH 7.43 (7.35-7.45) ABG pH (Temp Correct) Not Reportable ABG pCO2 30 L (35-45) mmHg ABG pCO2 (Temp Corrct Not Reportable ABG pO2 74 L (80-100) mmHg ABG pO2 (Temp Correct Not Reportable ABG HCO3 22.3 (19-31) mmol/L ABG O2 Saturation 97.3 (94.0-98.0) % ABG Base Excess -3.3 L (-2.0-2.0) mmol/L Respiration Rate Not Reportable Ventilator Type Not Reportable Vent Mode Not Reportable FiO2 1 Inspiratory Time Not Reportable PEEP Not Reportable Pressure Support Not Reportable Pressure Control Not Reportable EPAP Not Reportable IPAP Not Reportable BiPAP Not Reportable Sodium (135-145) mmol/L Potassium (3.5-5.0) mmol/L Chloride (101-111) mmol/L Carbon Dioxide (22-32) mmol/L Anion Gap (2-11) mmol/L BUN (6-24) mg/dL Creatinine (0.51-0.95) mg/dL Est GFR ( Amer) (>60) Est GFR (Non-Af Amer) (>60) BUN/Creatinine Ratio (8-20) Glucose (70-100) mg/dL Lactic Acid (0.5-2.0) mmol/L Calcium (8.6-10.3) mg/dL Magnesium (1.9-2.7) mg/dL Total Bilirubin (0.2-1.0) mg/dL AST (13-39) U/L ALT (7-52) U/L Alkaline Phosphatase (34-104) U/L Ammonia Troponin I 0.56 H* (<0.04) ng/mL B-Natriuretic Peptide (<=100) pg/mL Total Protein (6.4-8.9) g/dL Albumin (3.2-5.2) g/dL Globulin (2-4) g/dL Albumin/Globulin Ratio (1-3) TSH (0.34-5.60) mcIU/mL Urine Color Urine Appearance Urine pH (5-9) Ur Specific Ulysses (1.010-1.030) Urine Protein (Negative) Urine Ketones (Negative) Urine Blood (Negative) Urine Nitrate (Negative) Urine Bilirubin (Negative) Urine Urobilinogen (Negative) Ur Leukocyte Esterase (Negative) Urine WBC (Auto) (Absent) Urine RBC (Auto) (Absent) Ur Squamous Epith Cells (Absent) Urine Bacteria (Absent) Hyaline Casts (Absent) Urine Glucose (Negative) Urine Opiates Screen (None Detect) Ur Barbiturates Screen (None Detect) Ur Phencyclidine Scrn (None Detect) Ur Amphetamines Screen (None Detect) U Benzodiazepines Scrn (None Detect) Urine Cocaine Screen (None Detect) U Cannabinoids Screen (None Detect) Serum Alcohol (<10) mg/dL ECHO at bedside (sono site) limited: Apical severe hypo to akinesis. Base moves well. EF 35%. A/p 63 yo with falling, mentation changes, marked metabolic disturbances including acidosis with abnormal ECG, mild bump in trops and new apical akinesis c/w August 2018 echo. Hx severe NICM in the past. The most acute problem to pursue is neurological changes, etiology. From a cardiac standpoint, this is most likely another presentation of NICM related to metabolic abnormalities. Supportive care: Correct lytes/acid base status/oxygenation. Agree with gentle beta kira for CM/cardiac protection. If BP allows can add ACEI. ASA 81 mg/day. If OK from neuro standpoint, could add heparin, but I don't feel essential. If the CM was present prior to her falls/mentation changes could have led to VT and the above presentation. -Monitor rhythm. No cath planned now. Can decide on work up for ischemia/CM when more stable, cath vs. stress. Will make interventional cardiology aware. I feel presentation c/w poss. Takasubo or other non ischemic mechanism. The patient is overall high risk and I feel merits ICU care at this time.
[2019-05-02] MEDS ORDERED: Iohexol 350* (CONTRAST) 500 ML MDV IV ONE ×2 (18:52→19:57)
[2019-05-02] MEDS: NS 0.9% 1000 ML** 1,000 ML IV SCH (20:20)
[2019-05-02] MEDS: KCL 20 MEQ/100 ML IVPREMIX* 20 MEQ/100 ML BAG IV SCH ×2 (20:22→22:55)
--- NOTE | 2019-05-02 20:35 | CONS ---
CC: Hospitalist; Dr. Madsen * CARDIOLOGY CONSULTATION: DATE OF CONSULT: 05/02/19 REASON FOR CONSULTATION: Elevated troponins. HISTORY OF PRESENT ILLNESS: The patient is a 63-year-old woman who was catheterized in 2012 with normal coronaries and at that time had a nonischemic cardiomyopathy. Her ejection fraction most recently was normal. The patient was brought in to the emergency room today after being found on the ground on 05/01/19 and this morning. ER documents a fall, but I cannot corroborate this. Per Dr. Mclaughlin, a friend found her on the ground 2 nights ago , helped her up and then another person found her on the ground this morning and the patient was not her usual sharp self. Based on verbal reports from ER physicians, the patient declined any work up, was somewhat combative and agitated. Her history/facts appeared inaccuate and the patient was unable to walk per ED MD verbal report in the emergency room. ER evaluation that followed sedation revealed mild elevation in troponins and abnormal EKG with inverted T waves and a chest x-ray showing mild interstitial edema and an unremarkable CT I-. On my arrival, the patient was still in the emergency room, lying in bed, obtunded, and was deemed no access, and the emergency room was about to put in the central line. The patient herself could provide no history and there were no family members for history. PAST MEDICAL HISTORY: The patient has a past medical history of: 1. Severe chronic alcohol abuse. 2. Nonischemic cardiomyopathy in 2012. 3. Normal coronaries on cath in 2012. 4. Hypertension. 5. Chronic back pain. 6. Noncompliance. 7. Congestive heart failure. 8. Fibromyalgia. 9. Depression. PAST SURGICAL HISTORY: Includes: 1. Knee arthroscopy in 1969 and 1983. 2. Knee replacement in 1993. 3. Left total hip arthroplasty in 2016. ALLERGIES: Include MORPHINE, BEE STINGS. FAMILY HISTORY: From chart records is positive for cancer, diabetes, and coronary artery disease. SOCIAL HISTORY: The patient has a history of smoking and a history of alcoholism. REVIEW OF SYSTEMS: Was unable to be obtained as the patient was obtunded. PHYSICAL EXAMINATION: Vital Signs: Arrival blood pressure in the emergency room was 130/91 with a pulse of 101, blood pressure dropped to 91/67 and 89/63 ( received multiple doses of lorazepam and Haldol). Current vital signs show blood pressure 115/ , pulse 85 to 95, oxygen saturation 100% on 2 L per nasal cannula, and she is currently afebrile. General Appearance: Short, centripetally overweight, older middle-aged woman appearing older than her stated age, lying in bed, floppy, nonresponsive to verbal, but did respond to noxious of rolling her over, which was uncomfortable for her. I could not get her to answer any questions. Neurological Exam: Sedated and obtunded. Was unable to assess motor exam well. Skin: Very dark complexion consistent with chronic illness, possible Mediterranean complexion, but no appreciable cyanosis. HEENT: Neck without increased JVP. Respirations: Diminished in the bases, but unable to take deep breaths and diminished throughout. Coronary: S1 , S2 regular without appreciable murmurs. Abdomen: Nondistended, soft, but centripetally overweight with active bowel sounds. Lower extremities were free of edema and warm. DIAGNOSTIC STUDIES/LAB DATA: Studies: The patient's 12-lead ECG done at 1434 today shows normal sinus rhythm, 90 beats a minute, QRS of +30 with normal AV and IV conduction times. She has deep wide inverted T waves across the precordial leads, V2 through V6, as well as lateral leads I and aVL consistent with cerebral T waves. Compared with her baseline EKG of 03/31/18, the deeply inverted T waves replaces nonspecific ST changes and going back to 2016, T waves were almost normal. Bedside echo done with the ER SonoSite showed apical akinesis to severe hypokinesis, the base moved well, the right ventricle was low normal to mildly hypokinetic (limited echo). Reports: Cardiac catheterization on 02/04/13 showed normal coronaries, severe cardiomyopathy on ventriculogram, estimated at 20%. The most recent echo in the system is 09/15/18 showing ejection fraction 55% to 60%, normal right ventricular systolic function, trace tricuspid insufficiency. Labs: White count 7.4, hematocrit 38, platelets 262. ABG, pH 7.43, pCO2 of 30 , PO2 of 74, oxygen saturation 97%. Sodium 123, potassium 3.2, chloride 89, bicarb 19, BUN 8, creatinine 0.42, magnesium 1.7. AST of 42. Troponin #1 of 0.48, troponin #2 of 0.56. Total protein 6.3, albumin 3.8. Urinalysis, pH 1.012, ketones 2+, blood 1+, white cells negative, hyaline casts present. Toxicology was presumptive positive for opiates, alcohol was less than 10%, everything else was negative. Chest x-ray showed mild pulmonary vascular congestion and interstitial edema. Brain CT was unremarkable, negative, unenhanced CT of the head. IMPRESSION AND PLAN: In summary, [place] Neri is a 63-year-old woman who may have suffered a fall, was found on the ground, brought to the emergency room and based on the emergency room physician's H and P was talking, alert, oriented, able to follow commands, but due to agitation received benzodiazepines and Haldol and is now sedated and obtunded with a change in her normal mentation, unable to walk earlier in the ED and initially refusing any care. With sedation, the above testing was able to be done. Overall, I think the primary and most acute concern is the change in mentation and new inability to walk described by the friend who brought her in. The EKG is consistent with a [employer] process such as acute stroke even with a negative CT. Differential includes Wellen's syndrome (severe left main or LAD occlusion). Regarding the patient's elevated troponins and [id number] cardiomyopathy seen on limited bedside echo, this could be related to underlying metabolic disorders, of which they are many with her acidemia, low pO2, hyponatremia, hypokalemia, but could also represent new coronary artery disease as her cath was 6 years ago and she has atherosclerotic risks of smoking and hypertension at a minimum. If the cardiomyopathy occurred before her acute event, she could have had a dysrhythmia that precipitated her acute presentation/atrial fibrillation-flutter or ventricular tachycardia, but I suspect that whatever process brought her in led to the recurrence of the wall motion abnormalities. For the patient's cardiomyopathy and mild elevation in troponins, I agree with the hospitalist admitting her, that ideally we could give her low-dose beta- kira, but we need to be cautious as her pressure dropped in the ED. Right now, she is unable to take p.o., so we could give her low doses of IV Lopressor. In the long-term, I would recommend Toprol-XL 25 mg a day and if her blood pressure tolerates this, then add an CAMRON inhibitor such as ramipril or lisinopril starting at low doses and staggering with the Toprol. Heparin drip can be initiated as it appears that it is okay from a [employer] standpoint and a baby aspirin. I think what is even more important to protect the heart from is to treat the underlying metabolic disorders of electrolyte and acid based disturbances and I feel she needs additional neurological evaluation to determine why she has been now unable to walk and why her mentation has changed from baseline. I would continue with plans to get serial EKGs and troponins. I do not feel it is appropriate to send her for a cardiac catheterization acutely, when her metabolic and neurologic status is stabilized, we can then decide whether we give her another cath or do a Lexiscan Myoview due to her history of normal coronaries on prior cath in the setting of a severe cardiomyopathy. Thank you for allowing me to assist in this nice, but complex woman's care. [id number]/[facility] #: [id number]
[2019-05-02] MEDS: Heparin VIAL(*) 5000 UNITS/ML VIAL (FIVE THOUSAND) IV SCH (21:14)
--- NOTE | 2019-05-02 21:41 | HP ---
ADMISSION HISTORY AND PHYSICAL: DATE OF ADMISSION: 05/02/19 PCP: Dr. Kaitlyn Madsen. PROVIDER: Racehl Wylie NP ATTENDING PHYSICIAN: Dr. Ball.* (DICTATED BY RACHEL WYLIE NP) OTHER PROVIDERS: Include Dr. Mccullough and Dr. Bradley. CHIEF COMPLAINT: Falls. HISTORY OF PRESENT ILLNESS: This is a 63-year-old female with a past medical history significant for hypertension, ischemic cardiomyopathy, PEs, who was brought to the emergency room today via EMS after having been found lying on the floor at home, incontinent of urine, fall suspected. At the time of evaluation, patient was obtunded, responding only to sternal rub and therefore unable to obtain history. Unknown as to how long patient was laying on floor. In the ED, EKG was performed, which showed sinus rhythm with inverted T waves and brain CT was also performed due to fall, no significant findings. Chest x- ray also with no significant findings except for evidence of possible obstructive airway disease. No evidence of any infectious origin. Hospitalists were consulted to evaluate the patient for admission. In the ED, labs drawn, serial EKGs performed. Due to abnormal electrolyte levels, the patient received the banana bag with subsequent gentle IV hydration, normal saline at 100, IV potassium was given for level of 3.2. ABG is ordered with a concern for metabolic acidosis. IV magnesium given due to hypomagnesemia. Serial trops were bumped. Cardiology consulted due to abnormal trops and EKG's. Neurology was also consulted to help with rule out seizures. The patient transported to ICU for close monitoring. PAST MEDICAL HISTORY: 1. Osteoarthritis, back and shoulders. 2. Hypertension. 3. Chronic constipation. 4. Chronic back pain, the patient on pain clinic. 5. Cardiomyopathy. 6. Depression. 7. Rib fractures resulting in PE. 8. Pleural effusions. 9. Depression. PAST SURGICAL HISTORY: Includes: 1. Left knee replacement. 2. Cardiac catheterization in 2012. HOME MEDICATIONS: 1. Prednisone 40 mg p.o. daily. 2. Potassium 10 mEq p.o. daily. 3. Oxycodone 10 mg p.o. q.8 hours p.r.n. 4. Magnesium oxide 500 mg p.o. daily. 5. Ibuprofen 800 mg p.o. t.i.d. p.r.n. 6. Bumex 1 mg p.o. b.i.d. ALLERGIES: BEE VENOM, PROTEIN, and MORPHINE. FAMILY HISTORY: Unable to obtain. SOCIAL HISTORY: Significant for EtOH abuse. REVIEW OF SYSTEMS: Limited due to decreased level of consciousness. IMPRESSION: My impression is that this is again a 63-year-old female with a past medical history significant for hypertension and ischemic cardiomyopathy who presented to the ED on 05/02/19 due to falls and altered mental status and had encephalopathy likely secondary to ETOH abuse and SIADH, rule out seizures, acute coronary syndrome with positive troponin, hypomagnesemia, hypokalemia, and hyponatremia. PHYSICAL EXAMINATION GENERAL: The patient is like I said obtunded, thin. VITAL SIGNS: 97 temp, 90 pulse, 16 resps, 100% of oxygen on 2 L of oxygen, 115/ 84. HEENT: Conjunctivae pink, moist, unable to assess pupils. Head: Normocephalic , atraumatic. Oral mucosa dry. LYMPHATIC: No cervical lymphadenopathy noted. RESPIRATORY: No accessory muscle use. Lungs clear throughout to auscultation on 2 L of oxygen via nasal cannula. CARDIAC: There were no murmurs, no rubs, no gallops appreciated. Heart rate regular. S1, S2 present. Trace bilateral lower extremity edema with left greater than right. Faint positive pedal pulses and radial pulses. ABDOMEN: Soft, nontender with positive bowel sounds x4. MUSCULOSKELETAL: No clubbing or cyanosis. Unable to assess range of motion. NEUROLOGICAL: Unable to assess the sensation, only responding to painful stimuli. PSYCH: Unable to assess psych. SKIN: Noted about 1 cm x 1 cm soft palpable mass to anterior right ankle. DIAGNOSTIC STUDIES/LAB DATA: Pertinent labs: Sodium 123, potassium 3.2, chloride 89, carbon dioxide 19, anion gap 15, creatinine 0.42. Magnesium 1.7. AST 42. Troponin 0.56. B natriuretic peptide 490. Total protein 6.3. TSH 0.29. ABGs were as follows, pH 7.43, pO2 74, HCO3 22.3, base excess negative 3.3. The urine was 2+ ketones, 1+ blood, 1+ rbc's, present squamous epithelial cells, and present hyaline casts. Toxicology was negative for serum alcohol, but presumptive positive opiates. Brain CT showed no abnormal findings. Chest x-ray suggestive of probable mild pulmonary vascular congestion and interstitial edema. EKG showed sinus rhythm with inverted T waves. ASSESSMENT AND PLAN: The plan for this patient: 1. Encephalopathy, likely secondary to ethanol abuse and syndrome of inappropriate antidiuretic hormone secretion. The patient is obtunded, responding only to sternal rub. Sodium level 123. Vitamin B levels were checked, awaiting results on B1 and B12. Received banana bag in ED. Initially ordered normal saline at 150, though decreased to 100 per Cardiology recommendation. CTA of head and neck ordered to help rule out stroke. Serial BMPs to follow up on hyponatremia. 2. Rule out seizure secondary to delirium tremens: Neuro consult placed. EEG. Keppra IV 1000 mg x1. 3. Acute coronary syndrome with elevated trops: Trops 0.48 initially, which bumped to 0.56. EKG showed inverted T waves. Cardiology consulted. P.r. aspirin. Heparin drip. Repeat trops until peaked. O2 via nasal cannula. IV metoprolol with hold parameters. Echo in the a.m. though bedside, cardiac Doppler by Dr. Bradley revealed ejection fraction of 35% to 40%. 4. ETOH abuse: [facility] protocol. 5. Hypomagnesemia: Level is 1.7. Magnesium 2 g IV x1 ordered. Likely due to EtOH. 6. Hypokalemia: Level 3.2 with EKG changes. Two runs of IV potassium. Again , likely due to ETOH. 7. Nonischemic cardiomyopathy: Previous cath in 2012 revealed coronaries, but severe left ventricular dysfunction. Hold home Bumex due to recurrent ischemia. 8. Hypertension: Hold Bumex. IV metoprolol to be given instead. We will monitor BP. 9. DVT prophylaxis: SCDs and heparin drip. 10. Full code status. TIME SPENT: On this admission was about 90 minutes with about 30 of it spent face- to-face. My plan was reviewed with my attending and they agree with the plan of action. RACHEL WYLIE, MARQUITA [id number]/[facility] #: [id number] MTDD
[2019-05-02 21:46] LABS: Anion Gap 11 mmol/L (2-11); BUN/Creatinine Ratio 15.9 (8-20); Blood Urea Nitrogen 7 mg/dL (6-24); CO2 Carbon Dioxide 20 mmol/L (22-32); Calcium 7.8 mg/dL (8.6-10.3); Chloride 96 mmol/L (101-111); Cholesterol 154 mg/dL; EGFR African American 174.7 (>60); EGFR Non-African American 144.4 (>60); Glucose 90 mg/dL (70-100); HDL Cholesterol 44.1 mg/dL; LDL Cholesterol 92 mg/dL; Sodium 127 mmol/L (135-145); Triglycerides 91 mg/dL
[2019-05-02 21:49] LABS: Troponin I 0.36 ng/mL (<0.04)
--- NOTE | 2019-05-02 23:45 | PN ---
Hospitalist Progress Note Date of Service: 05/02/19 CTA Head with right vertebral artery occlusion in v1 and proximal v2 along with moderate C3 compression fracture, mild T2, T3 compression fractures. Talked with Dr. Mccullough and recommended stat push images to [facility]. Spoke with [facility]rologist Dr. Bojorquez who performed TeleStroke NIH scale, impression gross encephalopathy but no clear focal deficits and low suspicion for acute stroke but did recommend acquiring MRI Brain noncontrast. Although exam challenging given chronic back pain, muscular deconditioning and toxic metabolic encephalopathy there was low concern for basilar insufficiency or need to transfer for clot removal. vertebral artery occlusion could be chronic. Spoke with oncall Neurosurgeon Dr. Noyola or Boone about the C3 compression fracture. He does not have access to imaging yet or privelges yet. Cervical Collar applied. On review of ED provider report, notably patient did receive 50mg benadryl, 2mg ativan and 5mg of haldol around noon (?presumably for agitation) and had been able to ambulate with walker, though unsteady, before that. f/u EEG. continue WAM protocol, she got another 2mg around Na monitoring. Avoid overcorrection, q6 BMP. Thiamine supplementation with banana bag and f/u level (attempt add on). continuing heparin gtt.
[2019-05-02] MEDS ORDERED: oxyCODONE TAB* 5 MG TAB PO ONE (23:50)
[2019-05-03] MEDS ORDERED: HYDROmorphone INJ* 0.5 MG/0.5 ML SYRINGE IV SLOW PU ONE (00:35)
[2019-05-03 03:16] LABS: BUN/Creatinine Ratio 14.9 (8-20); Calcium 8.1 mg/dL (8.6-10.3); EGFR African American 161.9 (>60); EGFR Non-African American 133.8 (>60); Potassium 3.8 mmol/L (3.5-5.0)
[2019-05-03] MEDS: Heparin VIAL(*) 5000 UNITS/ML VIAL (FIVE THOUSAND) IV SCH (03:36)
[2019-05-03 06:17] LABS: ABS Lymphocytes 0.9 10^3/ul (1.0-4.8); ABS Monocytes 0.5 10^3/ul (0-0.8); ABS Neutrophils 5.1 10^3/ul (1.5-7.7); Eosinophil % 0.6 %; Hematocrit 33 % (35-47); Hemoglobin 11.2 g/dL (12.0-16.0); Lymphocyte % 13.7 %; Mean Corpuscular HGB Conc 34 g/dL (31-36); Mean Corpuscular Hemoglobin 31 pg (27-31); Mean Corpuscular Volume 90 fL (80-97); Mean Platelet Volume 7.8 fL (7.4-10.4); Platelet Count 207 10^3/uL (150-450); Red Blood Count 3.62 10^6 /uL (3.70-4.87); Red Cell Distribution Width 14 % (10-15); White Blood Count 6.5 10^3/uL (3.5-10.8)
[2019-05-03 08:30] LABS: BUN/Creatinine Ratio 16.3 (8-20); Calcium 8.4 mg/dL (8.6-10.3); EGFR African American 179.4 (>60); EGFR Non-African American 148.3 (>60); Potassium 3.6 mmol/L (3.5-5.0)
[2019-05-03] MEDS ORDERED: Thiamine TAB* 100 MG TAB PO SCH (09:00)
[2019-05-03] MEDS: Folic Acid TAB* 1 MG PO SCH (09:40)
[2019-05-03] MEDS: HYDROmorphone INJ* 0.5 MG/0.5 ML SYRINGE IV SLOW PU PRN ×2 (09:40→14:24)
[2019-05-03] MEDS: Multivitamins/Minerals TAB PO SCH (09:40)
--- NOTE | 2019-05-03 10:40 | ECHO ---
*[facility]* [place] [address] Fax #: [phone] Transthoracic Echocardiogram Patient: Indiana Neri : 1955 Study Date: 05/03/2019 Age: 63 Gender: F HR: 91 bpm Height: 63 in /160 cm BSA: 1.71 m^2 Weight: 143 lb /65 kg BMI: 25.4 kg/m^2 *Gang Ripsaw Operator: * Mera Castillo [facility] *Referring Physician: * Rachel Wylie *Reading Physician: * Adrian Dixon MD Indications: Abnormal EKG. History: Pulmonary Embolism. COPD. PMH: Cardiomyopathy. Risk factors: Current tobacco use. Hypertension. Pleural Effusions. Conclusions Summary: - Left ventricle: Systolic function is mildly reduced. The estimated ejection fraction is 45-50%. - Regional wall motion abnormality: Moderate hypokinesis of the apical myocardium; mild hypokinesis of the apical anterior and apical inferior myocardium. - Right ventricle: Systolic function is normal. - Mitral valve: There is trace regurgitation. - Aortic valve: There is no evidence of stenosis. There is trace regurgitation. - Tricuspid valve: There is trace to mild regurgitation. - Pericardium, extracardiac: There is no significant pericardial effusion. - Pulmonary arteries: Systolic pressure can not be accurately estimated. - Ompared to study of 08/2018, the left ventricle dysfunction and apical hypokinesis are new. Study data: Transthoracic echocardiogram. Procedure: Transthoracic echocardiography was performed. Image quality was fair. The study was technically limited due to poor acoustic window availability and poor patient compliance. Complete 2D, spectral Doppler, and color flow Doppler. Location: ICU Patient status: Inpatient. Patient room number: 5. Rhythm: Normal sinus rhythm with PVC's. Findings Left ventricle: The cavity size is normal. Wall thickness is normal. Systolic function is mildly reduced. The estimated ejection fraction is 45-50%. Regional wall motion abnormalities: Hypokinesis of the mid-apicalanterolateral and inferoseptal myocardium. Hypokinesis of the apicalanterior and inferior myocardium. Hypokinesis of the apicalanteroseptal and inferolateral myocardium. Moderate hypokinesis of the apical myocardium; mild hypokinesis of the apical anterior and apical inferior myocardium. There is no consistent Doppler evidence of clinically significant diastolic dysfunction. Right ventricle: The cavity size is normal. The moderator band is in a normal position. Systolic function is normal. Left atrium: The atrium is normal in size. Right atrium: The atrium is normal in size. Mitral valve: The leaflets are mildly thickened. There is no evidence of stenosis. There is trace regurgitation. Aortic valve: The valve is trileaflet. The leaflets are mildly thickened. There is no evidence of stenosis. There is trace regurgitation. Tricuspid valve: The leaflets are normal thickness. There is no evidence of stenosis. There is trace to mild regurgitation. Pulmonic valve: The leaflets are normal thickness. There is no evidence of stenosis. There is no significant regurgitation. Aorta: Aortic root: The aortic root is appears normal. Ascending aorta: The ascending aorta is poorly visualized and appears normal. Aortic arch: The aortic arch is not visualized. Patient wearing C Spine Collar. Pericardium: There is no significant pericardial effusion. Pulmonary arteries: The main pulmonary artery is normal-sized. Systolic pressure can not be accurately estimated. Systemic veins: Inferior vena cava: The vessel is dilated. There is (>= 50%) respiratory change in the IVC dimension. Measurements Left ventricle Value Ref Right atrium Value Ref PARMINDER, LAX 4.5 cm 3.8 - 5.2 SI dim, ES 4.3 cm 3.4 - 5.3 ESD, LAX 3.5 cm 2.2 - 3.5 ML dim, ES, A4C 3.4 cm 2.6 - 4.4 FS, LAX (L) 24 % 27 - 45 SI dim, ES, A4C 4.3 cm 3.4 - 5.3 PW, ED, LAX 0.7 cm 0.6 - 0.9 Estimated RAP 8 mm Hg --------- FS (L) 24 % 27 - 45 PW, ED 0.7 cm 0.6 - 0.9 Aortic valve Value Ref PW/ID, ED 0.16 Ender diam, ED 2.3 cm --------- E', lat ender, TDI 10.3 cm/sec >=10.0 Peak v, S 1.12 m/sec --- ------ E/e', lat ender, 10 VTI, S 18.6 cm ------ --- TDI Mean grad, S 2.0 mm Hg --------- E', med ender, TDI 8.5 cm/sec >=7.0 Peak grad, S 5.0 mm Hg --- ------ E/e', med ender, 13 LVOT/AV, VTI ratio 0.86 ------ --- TDI E', avg, TDI 9.4 cm/sec Mitral valve Value Ref E/e', avg, TDI 11 <=14 Peak E 1.07 m/sec --- ------ Peak A 0.74 m/sec --------- LVOT Value Ref Decel time 130 ms --------- Peak mckay, S 0.89 m/sec Peak grad, D 4.6 mm Hg --------- VTI, S 16.0 cm Peak E/A ratio 1.4 --------- Mean grad, S 1 mm Hg Pulmonic valve Value Ref Ventricular septum Value Ref Peak v, S 0.87 m/sec --------- IVS, ED (H) 1.0 cm 0.6 - 0.9 Peak grad, S 3.0 mm Hg --------- Right ventricle Value Ref Aortic root Value Ref PARMINDER, LAX 2.2 cm Root diam 3.2 cm <3.9 PARMINDER minor ax, 3.5 cm 1.9 - 3.5 Root max diam, ED 3.2 cm <3.9 A4C mid Ascending aorta Value Ref Left atrium Value Ref AAo AP diam, S 3.5 cm --------- AP dim, ES 3.30 cm 2.70 - 3.80 Inferior vena cava Value Ref ML dim, A4C 3.6 cm Diam 2.2 cm --------- SI dim, A4C 4.8 cm Vol/bsa, ES, 1-p 18 ml/m^2 11 - 40 A4C Vol/bsa, ES, A/L 26 ml/m^2 16 - 34 Legend: (L) and (H) mita values outside specified reference range. Prepared and electronically signed by Adrian Dixon MD 05/03/2019 10:40
[2019-05-03] MEDS: Thiamine INJ* 500 MG in NS 0.9% 250 ML* 250 ML IV SCH (11:57)
--- NOTE | 2019-05-03 13:09 | CONS ---
CONSULTATION REPORT: DATE OF CONSULT: 05/03/19 CONSULTING PROVIDER: Silva Javier NP REASON FOR CONSULT: Confusion. CHIEF COMPLAINT: Back pain. HISTORY OF PRESENT ILLNESS: Ms. Indiana Neri, who also goes by Ms. Jimenez is a 63-year-old female who has past medical history significant chronic pain syndrome who is on narcotic therapy, chronic C3, compression fracture, systolic heart failure, tobacco abuse, reported history of alcohol abuse in the past, who presented to [facility] on 05/02/19 with symptoms of confusion and frequent falls. The patient stated that she has been falling for the past 24-48 hours. She has had multiple falls in the past. She stated that she is oxygen dependent and has ran out of oxygen therapy this weekend. She denied any head trauma. She denied any loss of consciousness. She is in excruciating pain because she has been doubling up on her oxycodone instead of taking 10 mg 6 times a day, she is taking 20 mg 6 times a day for a total of 120 mg a day. The patient denied any reason excessive alcohol use. She drank 2 beer last Friday. Her main concern today is extreme localized pain in the mid thoracic region that started after the fall Friday morning. The pain is nonradiating. She is having trouble moving her upper and lower extremities due to pain. She denied any headaches, visual disturbance focal weakness or paresthesias. She denied any impairment in her bowel or bladder function. According to the documentation from the nurse yesterday, the patient apparently developed increased agitation yesterday. Dr. Celso Mclaughlin had to order Benadryl 50 mg IV, lorazepam 2 mg IV and Haldol 5 mg IM. Following the medication, the patient became extremely drowsy. She was not responding to command. She would briefly open her eye to noxious stimuli. This was recorded at 1432 yesterday. The patient was eventually admitted to the medical floor and was evaluated by Rachel Wylie. At that time, there was a concern that the patient may be having subclinical seizures as well as a possible stroke. At approximately 1900 yesterday, the code sinha was activated. Patient was evaluated by stroke neurologist from telestroke service. Stat CTA head and neck was recommended. Initially, a CT head in the ED was obtained and was personally reviewed. There was no evidence of acute intracranial process or hemorrhage. The CTA of the head and neck showed a proximal right vertebral artery occlusion. There was no further intervention recommended. NIH stroke scale was difficult to document due to the patient's obtundation. She was started on IV thiamine therapy. Today, the patient is in pain and is more awake and alert to self, place and president. She is aware she is in the ICU. PAST MEDICAL HISTORY: 1. Osteoarthritis. 2. Hypertension. 3. Chronic constipation. 4. Chronic back pain. 5. Cardiomyopathy. 6. Depression. 7. Rib fracture. 8. Pulmonary effusion. 9. Tobacco use. 10. Fibromyalgia. PAST SURGICAL HISTORY: 1. Left knee replacement. 2. Cardiac catheterization. MEDICATIONS: Home medications: Oxycodone 10 mg, which she takes 2 tablets according to the patient every 4 hours. We will need to confirm this by pharmacy. The patient stated she denied any aspirin or statin therapy. ALLERGIES: MORPHINE, BEE VENOM. FAMILY HISTORY: No family history of stroke or seizures. SOCIAL HISTORY: The patient smokes 1 pack per day for the past 30 years. She has significantly decreased her alcohol intake and she drinks approximately 2 to 6 beers a week. She lives with her partner. REVIEW OF SYSTEMS: A 14-point review of systems was obtained and otherwise negative except for what is mentioned in the HPI. PHYSICAL EXAM: Vitals: Temperature of 97.5, pulse of 105, respiratory rate of 26, oxygen saturation 98% on 3 L nasal cannula, blood pressure 125/75. General : A frail-appearing, slightly disheveled female in mild distress due to pain. Head: Atraumatic, normocephalic without any obvious abnormality. Eyes: Conjunctivae/ corneas are clear. Neck: She has got a Wood J collar around the neck region. Respiratory: Crackles throughout the anterior and posterior bibasilar area. Cardiovascular: Regular rate and rhythm with normal S1 and S2 with no murmurs. Extremities: Limited and restricted range of motion due to pain with shoulder abduction. Skin: No skin lesions or laceration. Psych: Affect is flat and depressed mood, but otherwise she is easy to interact with the examiner today when compared to what was reported earlier. Neurological Examination: The patient is awake, slightly drowsy, but alert to person, place , time and general circumstances. She has no evidence of dysarthria or aphasia. Her language as well as speech including comprehension, repetition, reading were assessed and were found to be normal. Cranial Nerves: Pupils, pupil are equal, round, reactive to light. Extraocular movements are intact. There is no evidence of nystagmus. There is normal sensation to the face bilaterally. No facial asymmetry. Tongue is symmetric and midline with no atrophy or fasciculation. Motor Examination: She is able to squeeze hands and elevate the legs bilaterally. She is having trouble with lifting shoulders due to back pain symmetrically. She has slightly increasing tone in the lower extremities bilaterally. Sensation is intact to light touch and pinprick throughout. Reflexes: 1+ in the upper extremity and 1+ in the lower extremity with 0 at the ankles bilaterally. Questionable ankle and plantar response on the right. Coordination: Intact [id number] bilaterally. Gait: Not assessed. DIAGNOSTIC STUDIES/LAB DATA: WBC is 6.5, hemoglobin of 11.2, hematocrit of 33, platelet count of 207, APTT 64, chemistry of 129, potassium 3.6, chloride of 100 , carbon dioxide 20, creatinine 0.43, calcium is 8.4, troponin of 0.36, free T4 of 1.24, TSH 0.29. Urinalysis is negative for pyuria. Urine tox screen positive for opiates. CTA of the neck showed evidence of absent flow on the proximal right vertebral artery consistent with occlusion. This involved the V1 and V2 segments. Atherosclerotic and more thrombus were visualized involving the left carotid bifurcation. There is less than 50% stenosis of the distal left common carotid. 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 Moderate compression fracture of C3 vertebral body, mild compression fracture identified at T2 and T3. These findings are indeterminate in acuity. ASSESSMENT: Ms. Indiana Neri is a 63-year-old female who presented to [facility] with history of falls and symptoms of confusion. 1. Acute encephalopathy: multifactorial. Likely related to hypoxic-ischemic encephalopathy related to hypoxemia secondary to respiratory depression, which can be related to narcotic therapy. Other differential diagnosis includes metabolic encephalopathy related to hyponatremia or possible B1 deficiency. The patient's mental status has improved. Other exacerbating factors to her worsening confusion may have been secondary to the medications she received in the ED, which includes Haldol, Ativan and Benadryl. She may have developed a paradoxical effect secondary to these medications. 2. Non-ST elevation myocardial infarction - Cardiology is following. The patient is currently on a heparin infusion. 3. 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 These are asymptomatic at this time as her examination does not suggest stroke. 4. Abnormal movements yesterday concerning for seizure like activity and she was given levetiracetam - I doubt that this is related to a seizure as she has no history of seizures. 5. Thyroid disease - defer to the primary team. 6. 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 7. Compression fractures involving the cervical and thoracic spine at C3, T2 and T3. 8. Severe cervical spondylosis with partial myelopathy. RECOMMENDATIONS: I recommend starting the patient on high dose of thiamine, give her at least two 500 mg of thiamine IV over the next 24 hours. Minimize the use of Haldol, Ativan or Benadryl to prevent any toxic encephalopathy. Please confirm the patient's narcotic home regiment to prevent any withdrawal symptoms and increased agitation. Resume her home medications. Continue the Wood J collar. She did have a questionable upgoing extensor plantar response in the lower extremity.She will need an MRI of the cervical and thoracic spine to evaluate for spinal cord compression. She will most likely require an orthopedic or neurosurgical evaluation. Please correct her thyroid function. Start aspirin 81 mg and atorvastatin 40 mg nightly for the extracranial stenosis and carotid mural thrombus. Neuro-check every 4 hours. Stroke education was not implemented since the patient is less likely to have a stroke or TIA. We will need an EEG to rule out any seizure like activity. No need to continue levetiracetam at this time since we do not suspect the patient had seizures. Her presentation was not really suggestive of seizures. We will continue the levetiracetam only if her EEG is abnormal. Consult PT/OT to evaluate and treat. I will continue to follow. [id number]/[facility] #: [id number] [place]
--- NOTE | 2019-05-03 14:53 | PN ---
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, remains encephalopathic requiring reorientation , but does have distinct periods of lucidity and can follow directions, 5/5 gross motor and sensation Fluid Balance (Past 24 Hours): I= 4200 O= 807 Net +3393 Intake & Output 05/01/19 05/02/19 05/03/19 05/04/19 06:59 06:59 06:59 06:59 Intake Total 4200.0 1233 Output Total 807 231 Balance 3393.0 1002 Weight 156 lb 8.451 oz Intake: IV Fluids 3836 950 Banana Bag 1000 Keppra 100 NS 1636 729 Thiamin 221 IVPB 221 KCl 221 Medicated IV 143.0 163 Heparin 143.0 163 Oral 120 Output: [place] 807 231 Labs: Laboratory Results - last 24 hr 05/02/19 05/02/19 05/02/19 13:50 13:50 14:41 WBC RBC Hgb Hct MCV MCH MCHC RDW Plt Count MPV Neut % (Auto) Lymph % (Auto) Josephine % (Auto) Eos % (Auto) Baso % (Auto) Absolute Neuts (auto) Absolute Lymphs (auto) Absolute Monos (auto) Absolute Eos (auto) Absolute Basos (auto) Absolute Nucleated RBC Nucleated RBC % APTT Patient Temperature ABG pH ABG pH (Temp Correct) ABG pCO2 ABG pCO2 (Temp Corrct ABG pO2 ABG pO2 (Temp Correct ABG HCO3 ABG O2 Saturation ABG Base Excess Respiration Rate Ventilator Type Vent Mode FiO2 Inspiratory Time PEEP Pressure Support Pressure Control EPAP IPAP BiPAP Sodium Potassium Chloride Carbon Dioxide Anion Gap BUN Creatinine Est GFR ( Amer) Est GFR (Non-Af Amer) BUN/Creatinine Ratio Glucose Calcium Ammonia TNP TNP Troponin I B-Natriuretic Peptide 490 H Triglycerides Cholesterol LDL Cholesterol HDL Cholesterol TSH 0.29 L Free T4 Urine Color Urine Appearance Urine pH Ur Specific Lohn Urine Protein Urine Ketones Urine Blood Urine Nitrate Urine Bilirubin Urine Urobilinogen Ur Leukocyte Esterase Urine WBC (Auto) Urine RBC (Auto) Ur Squamous Epith Cells Urine Bacteria Hyaline Casts Urine Glucose Urine Opiates Screen Ur Barbiturates Screen Ur Phencyclidine Scrn Ur Amphetamines Screen U Benzodiazepines Scrn Urine Cocaine Screen U Cannabinoids Screen Serum Alcohol < 10 05/02/19 05/02/19 05/02/19 15:10 15:30 15:30 WBC RBC Hgb Hct MCV MCH MCHC RDW Plt Count MPV Neut % (Auto) Lymph % (Auto) Josephine % (Auto) Eos % (Auto) Baso % (Auto) Absolute Neuts (auto) Absolute Lymphs (auto) Absolute Monos (auto) Absolute Eos (auto) Absolute Basos (auto) Absolute Nucleated RBC Nucleated RBC % APTT Patient Temperature ABG pH ABG pH (Temp Correct) ABG pCO2 ABG pCO2 (Temp Corrct ABG pO2 ABG pO2 (Temp Correct ABG HCO3 ABG O2 Saturation ABG Base Excess Respiration Rate Ventilator Type Vent Mode FiO2 Inspiratory Time PEEP Pressure Support Pressure Control EPAP IPAP BiPAP Sodium Potassium Chloride Carbon Dioxide Anion Gap BUN Creatinine Est GFR ( Amer) Est GFR (Non-Af Amer) BUN/Creatinine Ratio Glucose Calcium Ammonia 30 Troponin I B-Natriuretic Peptide Triglycerides Cholesterol LDL Cholesterol HDL Cholesterol TSH Free T4 Urine Color Yellow Urine Appearance Cloudy Urine pH 6.0 Ur Specific Lohn 1.012 Urine Protein Negative Urine Ketones 2+ A Urine Blood 1+ A Urine Nitrate Negative Urine Bilirubin Negative Urine Urobilinogen Negative Ur Leukocyte Esterase Negative Urine WBC (Auto) Trace(0-5/hpf) Urine RBC (Auto) 1+(3-5/hpf) A Ur Squamous Epith Cells Present A Urine Bacteria Absent Hyaline Casts Present A Urine Glucose Negative Urine Opiates Screen Presumptive positive A Ur Barbiturates Screen None detected Ur Phencyclidine Scrn None detected Ur Amphetamines Screen None detected U Benzodiazepines Scrn None detected Urine Cocaine Screen None detected U Cannabinoids Screen None detected Serum Alcohol 05/02/19 05/02/19 05/02/19 16:20 17:25 21:20 WBC RBC Hgb Hct MCV MCH MCHC RDW Plt Count MPV Neut % (Auto) Lymph % (Auto) Josephine % (Auto) Eos % (Auto) Baso % (Auto) Absolute Neuts (auto) Absolute Lymphs (auto) Absolute Monos (auto) Absolute Eos (auto) Absolute Basos (auto) Absolute Nucleated RBC Nucleated RBC % APTT Patient Temperature Not Reportable ABG pH 7.43 ABG pH (Temp Correct) Not Reportable ABG pCO2 30 L ABG pCO2 (Temp Corrct Not Reportable ABG pO2 74 L ABG pO2 (Temp Correct Not Reportable ABG HCO3 22.3 ABG O2 Saturation 97.3 ABG Base Excess -3.3 L Respiration Rate Not Reportable Ventilator Type Not Reportable Vent Mode Not Reportable FiO2 1 Inspiratory Time Not Reportable PEEP Not Reportable Pressure Support Not Reportable Pressure Control Not Reportable EPAP Not Reportable IPAP Not Reportable BiPAP Not Reportable Sodium 127 L Potassium 3.0 L Chloride 96 L Carbon Dioxide 20 L Anion Gap 11 BUN 7 Creatinine 0.44 L Est GFR ( Amer) 174.7 Est GFR (Non-Af Amer) 144.4 BUN/Creatinine Ratio 15.9 Glucose 90 Calcium 7.8 L Ammonia Troponin I 0.56 H* 0.36 H* B-Natriuretic Peptide Triglycerides 91 Cholesterol 154 LDL Cholesterol 92 HDL Cholesterol 44.1 TSH Free T4 Urine Color Urine Appearance Urine pH Ur Specific Lohn Urine Protein Urine Ketones Urine Blood Urine Nitrate Urine Bilirubin Urine Urobilinogen Ur Leukocyte Esterase Urine WBC (Auto) Urine RBC (Auto) Ur Squamous Epith Cells Urine Bacteria Hyaline Casts Urine Glucose Urine Opiates Screen Ur Barbiturates Screen Ur Phencyclidine Scrn Ur Amphetamines Screen U Benzodiazepines Scrn Urine Cocaine Screen U Cannabinoids Screen Serum Alcohol 05/03/19 05/03/19 05/03/19 02:35 02:45 05:30 WBC 6.5 RBC 3.62 L Hgb 11.2 L Hct 33 L MCV 90 MCH 31 MCHC 34 RDW 14 Plt Count 207 MPV 7.8 Neut % (Auto) 78.2 Lymph % (Auto) 13.7 Josephine % (Auto) 7.1 Eos % (Auto) 0.6 Baso % (Auto) 0.4 Absolute Neuts (auto) 5.1 Absolute Lymphs (auto) 0.9 L Absolute Monos (auto) 0.5 Absolute Eos (auto) 0.0 Absolute Basos (auto) 0.0 Absolute Nucleated RBC 0.0 Nucleated RBC % 0.0 APTT 48.2 H Patient Temperature ABG pH ABG pH (Temp Correct) ABG pCO2 ABG pCO2 (Temp Corrct ABG pO2 ABG pO2 (Temp Correct ABG HCO3 ABG O2 Saturation ABG Base Excess Respiration Rate Ventilator Type Vent Mode FiO2 Inspiratory Time PEEP Pressure Support Pressure Control EPAP IPAP BiPAP Sodium 128 L Potassium 3.8 Chloride 99 L Carbon Dioxide 21 L Anion Gap 8 BUN 7 Creatinine 0.47 L Est GFR ( Amer) 161.9 Est GFR (Non-Af Amer) 133.8 BUN/Creatinine Ratio 14.9 Glucose 92 Calcium 8.1 L Ammonia Troponin I B-Natriuretic Peptide Triglycerides Cholesterol LDL Cholesterol HDL Cholesterol TSH Free T4 Urine Color Urine Appearance Urine pH Ur Specific Lohn Urine Protein Urine Ketones Urine Blood Urine Nitrate Urine Bilirubin Urine Urobilinogen Ur Leukocyte Esterase Urine WBC (Auto) Urine RBC (Auto) Ur Squamous Epith Cells Urine Bacteria Hyaline Casts Urine Glucose Urine Opiates Screen Ur Barbiturates Screen Ur Phencyclidine Scrn Ur Amphetamines Screen U Benzodiazepines Scrn Urine Cocaine Screen U Cannabinoids Screen Serum Alcohol 05/03/19 05/03/19 05/03/19 05:30 07:53 09:45 WBC RBC Hgb Hct MCV MCH MCHC RDW Plt Count MPV Neut % (Auto) Lymph % (Auto) Josephine % (Auto) Eos % (Auto) Baso % (Auto) Absolute Neuts (auto) Absolute Lymphs (auto) Absolute Monos (auto) Absolute Eos (auto) Absolute Basos (auto) Absolute Nucleated RBC Nucleated RBC % APTT 64.3 H Patient Temperature ABG pH ABG pH (Temp Correct) ABG pCO2 ABG pCO2 (Temp Corrct ABG pO2 ABG pO2 (Temp Correct ABG HCO3 ABG O2 Saturation ABG Base Excess Respiration Rate Ventilator Type Vent Mode FiO2 Inspiratory Time PEEP Pressure Support Pressure Control EPAP IPAP BiPAP Sodium 129 L Potassium 3.6 Chloride 100 L Carbon Dioxide 20 L Anion Gap 9 BUN 7 Creatinine 0.43 L Est GFR ( Amer) 179.4 Est GFR (Non-Af Amer) 148.3 BUN/Creatinine Ratio 16.3 Glucose 87 Calcium 8.4 L Ammonia Troponin I B-Natriuretic Peptide Triglycerides Cholesterol LDL Cholesterol HDL Cholesterol TSH Free T4 1.24 H Urine Color Urine Appearance Urine pH Ur Specific Lohn Urine Protein Urine Ketones Urine Blood Urine Nitrate Urine Bilirubin Urine Urobilinogen Ur Leukocyte Esterase Urine WBC (Auto) Urine RBC (Auto) Ur Squamous Epith Cells Urine Bacteria Hyaline Casts Urine Glucose Urine Opiates Screen Ur Barbiturates Screen Ur Phencyclidine Scrn Ur Amphetamines Screen U Benzodiazepines Scrn Urine Cocaine Screen U Cannabinoids Screen Serum Alcohol Studies: Patient Name: ROSS ARANDA Medical Record#: [id number] Ordering Physician: Rachel Wylie 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 The findings were verbally communicated via telephone conference with Dr. Arteaga at 9:25 PM EDT on 05/02/2019. The findings were acknowledged and understood. Initial report created on 05/02/2019 8:50:16 PM EDT EXAM: CT Angiography Head With Contrast EXAM DATE/TIME: 05/02/2019 7:50 PM CLINICAL HISTORY: 63 years old, female; Other: Possible CVA; Additional info: Eval for CVA TECHNIQUE: Imaging protocol: Computed tomography angiography of the head with intravenous contrast. 3D rendering: MIP reconstructed images were created and reviewed. Radiation optimization: All CT scans at this facility use at least one of these dose optimization techniques: automated exposure control; mA and/or kV adjustment per patient size (includes targeted exams where dose is matched to clinical indication); or iterative reconstruction. Contrast material: OMNI 350; Contrast volume: 80 ml; Contrast route: IV; COMPARISON: BRAIN WO CT BRAIN WO 07/12/2015 3:54 PM FINDINGS: Right internal carotid artery: Mild atherosclerosis of the right internal carotid artery, with less than 50% stenosis. No aneurysm. Right anterior cerebral artery: No occlusion or significant stenosis. No aneurysm. Right middle cerebral artery: No occlusion or significant stenosis. No aneurysm. Right posterior cerebral artery: No occlusion or significant stenosis. No aneurysm. Right vertebral artery: The right vertebral artery is diffusely small in caliber, without occlusion. Left internal carotid artery: Mild atherosclerosis of the left internal carotid artery, with less than 50% stenosis. No aneurysm. Left anterior cerebral artery: No occlusion or significant stenosis. No aneurysm. Left middle cerebral artery: No occlusion or significant stenosis. No aneurysm. NECK: Thyroid: A few nodules are identified within the right thyroid lobe. One of these nodules measures 1.2 cm. Bones/joints: Reversal of the lordotic curvature of the cervical spine. Spondylosis visualized at multiple cervical levels. Soft tissues: No significant soft tissue swelling. Lungs: Mild emphysematous changes within the lungs. IMPRESSION: 1. There is absence of flow within the proximal right vertebral artery, consistent with occlusion. This involves the V1 and proximal V2 segments. There is partial reconstitution of flow more distally within the vertebral artery. 2. Atherosclerosis and mural thrombus are visualized involving the left carotid bifurcation. There is less than 50% stenosis of the distal left common carotid artery. 3. Less than 50% stenosis of the proximal left internal carotid artery. 4. Anterior to the right glenoid process, there is a 2.2 x 1.8 cm mineralized loose body. 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 5. There is a moderate compression fracture of the C3 vertebral body. Mild compression fractures are identified at T2 and T3. These findings are indeterminate in acuity. Clinical correlation and correlation with prior studies recommended. 6. Additional findings described above. COMMENT: 1. Reference per NASCET criteria for degree of stenosis: Mild: less than 50% stenosis. Moderate: 50-69% stenosis. Severe: 70-94% stenosis. Near occlusion: 95-99% stenosis. 2. In patients aged 35 years and older with an incidental thyroid nodule equal to or greater than 1.[address], MRI or extrathyroidal US, further evaluation with dedicated thyroid US is recommended for patients with normal life expectancy and without comorbidities. For smaller nodules without suspicious features, no further evaluation or follow up is recommended. EXAM: CT Angiography Head With Contrast EXAM DATE/TIME: 05/02/2019 7:50 PM CLINICAL HISTORY: 63 years old, female; Other: Possible CVA; Additional info: Eval for CVA adjustment per patient size (includes targeted exams where dose is matched to clinical indication); or iterative reconstruction. Contrast material: OMNI 350; Contrast volume: 80 ml; Contrast route: IV; COMPARISON: BRAIN WO CT BRAIN WO 07/12/2015 3:54 PM FINDINGS: Right internal carotid artery: Mild atherosclerosis of the right internal carotid artery, with less than 50% stenosis. No aneurysm. Right anterior cerebral artery: No occlusion or significant stenosis. No aneurysm. Right middle cerebral artery: No occlusion or significant stenosis. No aneurysm. Right posterior cerebral artery: No occlusion or significant stenosis. No aneurysm. Right vertebral artery: The right vertebral artery is diffusely small in caliber, without occlusion. Left internal carotid artery: Mild atherosclerosis of the left internal carotid artery, with less than 50% stenosis. No aneurysm. Left anterior cerebral artery: No occlusion or significant stenosis. No aneurysm. Left middle cerebral artery: No occlusion or significant stenosis. No aneurysm. Left posterior cerebral artery: No occlusion or significant stenosis. No aneurysm. Left vertebral artery: No significant stenosis or occlusion of the left vertebral artery. A dominant left vertebral artery is identified. Basilar artery: No occlusion or significant stenosis. No aneurysm. IMPRESSION: 1. Mild atherosclerosis of the internal carotid arteries, with less than 50% stenoses bilaterally. 2. A dominant left vertebral artery is identified. EXAM: CT Angiography Neck With Contrast EXAM DATE/TIME: 05/02/2019 7:50 PM CLINICAL HISTORY: 63 years old, female; Other: Possible CVA; Additional info: Eval for CVA TECHNIQUE: Imaging protocol: Computed tomographic angiography images of the neck with intravenous contrast using CT angiography protocol. 3D rendering: MIP reconstructed images were created and reviewed. Radiation optimization: All CT scans at this facility use at least one of these dose optimization techniques: automated exposure control; mA and/or kV adjustment per patient size (includes targeted exams where dose is matched to clinical indication); or iterative reconstruction. Contrast material: OMNI 350; Contrast volume: 80 ml; Contrast route: IV; COMPARISON: BRAIN WO CT BRAIN WO 07/12/2015 3:54 PM FINDINGS: VASCULATURE: Right common carotid artery: No significant stenosis. No dissection or occlusion. Right internal carotid artery: Extracranial segment is patent with no stenosis. No dissection or occlusion. Right external carotid artery: No occlusion or significant stenosis. Right vertebral artery: There is absence of flow within the proximal right vertebral artery, consistent with occlusion. This involves the V1 and proximal V2 segments. There is partial reconstitution of flow more distally within the vertebral artery. There is a moderate compression fracture of the C3 vertebral body. Mild compression fractures are identified at T2 and T3. These findings are indeterminate in acuity. Left common carotid artery: Artifact limits evaluation of the proximal left common carotid artery. Atherosclerosis and mural thrombus are visualized involving the left carotid bifurcation. There is less than 50% stenosis of the distal left common carotid artery. Left internal carotid artery: Atherosclerosis and less than 50% stenosis of the proximal left internal carotid artery. Left external carotid artery: No occlusion or significant stenosis. Left vertebral artery: Mild stenosis of the proximal left vertebral artery. A dominant left vertebral artery is identified. Subclavian arteries: Atherosclerotic changes are identified of the right subclavian artery without significant stenosis. Venous enhancement limits evaluation of the left subclavian artery. Other vasculature: Anterior to the right glenoid process, there is a 2.2 x 1.8 cm mineralized loose body. Synovial osteochondromatosis is within the differential. NECK: Thyroid: A few nodules are identified within the right thyroid lobe. One of these nodules measures 1.2 cm. Bones/joints: Reversal of the lordotic curvature of the cervical spine. Spondylosis visualized at multiple cervical levels. Soft tissues: No significant soft tissue swelling. Lungs: Mild emphysematous changes within the lungs. IMPRESSION: 1. There is absence of flow within the proximal right vertebral artery, consistent with occlusion. This involves the V1 and proximal V2 segments. There is partial reconstitution of flow more distally within the vertebral artery. 2. Atherosclerosis and mural thrombus are visualized involving the left carotid bifurcation. There is less than 50% stenosis of the distal left common carotid artery. 3. Less than 50% stenosis of the proximal left internal carotid artery. 4. Anterior to the right glenoid process, there is a 2.2 x 1.8 cm mineralized loose body. 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 5. There is a moderate compression fracture of the C3 vertebral body. Mild compression fractures are identified at T2 and T3. These findings are indeterminate in acuity. Clinical correlation and correlation with prior studies recommended. 6. Additional findings described above. COMMENT: 1. Reference per NASCET criteria for degree of stenosis: Mild: less than 50% stenosis. Moderate: 50-69% stenosis. Severe: 70-94% stenosis. Near occlusion: 95-99% stenosis. 2. In patients aged 35 years and older with an incidental thyroid nodule equal to or greater than 1.[address], MRI or extrathyroidal US, further evaluation with dedicated thyroid US is recommended for patients with normal life expectancy and without comorbidities. For smaller nodules without suspicious features, no further evaluation or follow up is recommended. CARDIA ECHO *[facility]* [place] [address] Fax #: [phone] Transthoracic Echocardiogram Patient: Ross Aranda : 1955 Study Date: 05/03/2019 Age: 63 Gender: F HR: 91 bpm Height: 63 in /160 cm BSA: 1.71 m^2 Weight: 143 lb /65 kg BMI: 25.4 kg/m^2 *Department Editor: * Mera Castillo [facility] *Referring Physician: * Rachel Wylie *Reading Physician: * Adrian Dixon MD Indications: Abnormal EKG. History: Pulmonary Embolism. COPD. PMH: Cardiomyopathy. Risk factors: Current tobacco use. Hypertension. Pleural Effusions. Conclusions Summary: - Left ventricle: Systolic function is mildly reduced. The estimated ejection fraction is 45-50%. - Regional wall motion abnormality: Moderate hypokinesis of the apical myocardium; mild hypokinesis of the apical anterior and apical inferior myocardium. - Right ventricle: Systolic function is normal. - Mitral valve: There is trace regurgitation. - Aortic valve: There is no evidence of stenosis. There is trace regurgitation. - Tricuspid valve: There is trace to mild regurgitation. - Pericardium, extracardiac: There is no significant pericardial effusion. - Pulmonary arteries: Systolic pressure can not be accurately estimated. Nutrition: NPO pending swallow eval Impression: This is a 63 year old female with history of non ischemic cardiomyopathy, tobacco abuse, ETOH abuse, chronic pain, osteoarthritis that presented to the ED after being found on the floor twice in 24 hours and brought to the ED with AMS, electrolyte abnormalities, EKG changes and troponinemia, now found to also have vertebral artery occlusion, C2 and thoracic compression fractures and persistent encephalopathy. Diagnoses: 1. Metabolic Encphalopathy, etiology unclear 2. Hyponatremia/Hypokalemia 3. Vertebral Artery Occlusion 4. EKG Changes 5. Elevated Troponin 6. Non Ischemic Cardiomyopathy 7. C2 Compression Fracture 8. T2 and T3 Compression Fractures 9. Chronic Pain 10. Tobacco Abuse Plan: Neuro: - Neuro consulted and following - MRI brain, Cspine and thoracic spine pending, follow EEG read - Continue [place] J collar for Cspine precautions, may consult neurosurgery depending on findings of MRI, CT scans as above - Telestroke did not recommend transfer for clot retrieval/intervention - Continue thiamine, folic acid and optimize/replete lytes - Start asa, statin CV: - Cardiology consulted and following - ECHO as above, etiology of NICM unclear - Trops .048/.056/0.36 with no complaints of chest pain, likely demand in setting of hypoxia and cardiomyopathy - Continue tele, daily EKGs - Start low dose metoprolol and ASA, consider CAMRON - Will discontinue heparin gtt Pulm: - Sats adequate on nasal canula, no further hypoxia - Rhonchi noted, no wheeze, tobacco cessation advised - Nebs PRN with flutter valve if tolerated - ABG without CO2 retention GI: - No GI issues at present /Renal: - Sherwood catheter for hemodynamic monitoring - BUN low, Creat normal, monitor Musculoskeletal: - PRN dilaudid, change to oxycodone when no longer NPO - Monitor for withdrawal given hx of opioid dependence - PT when stable - BR with HOB @30 - Cspine precautions ID: - No infection noted FEN - Passed bedside swallow, start heart healthy diet this evening - IVF at maintenance DVT - SCDs, off heparin gtt now Code Status - Full code Critical Care Time: 75mins
[2019-05-03 15:18] LABS: BUN/Creatinine Ratio 14.3 (8-20); Calcium 8.4 mg/dL (8.6-10.3); EGFR African American 184.4 (>60); EGFR Non-African American 152.4 (>60); Potassium 3.3 mmol/L (3.5-5.0)
[2019-05-03] MEDS: oxyCODONE TAB* 5 MG TAB PO PRN (18:50)
[2019-05-03] MEDS: Albuterol/Ipratropium NEB.SOL* Albuterol 2.5 MG/Ipratropium 0.5 MG 3 ML INH SCH (20:44)
[2019-05-03] MEDS: guaiFENesin ER TAB 600 MG PO SCH (21:42)
[2019-05-03] MEDS: Atorvastatin* 40 MG TAB PO SCH (21:42)
--- NOTE | 2019-05-03 21:44 | EEG ---
ELECTROENCEPHALOGRAPHY: DATE OF STUDY: 05/03/19 - ROOM #ICU-05 ORDERED BY: Rachel Wylie NP. MEDICATIONS: 1. Folic acid. 2. Multivitamin. 3. Vitamin B1. 4. Tylenol. 5. Ativan. 6. Lopressor. 7. Zofran. 8. Heparin. DURATION: 1019 to 1102 INDICATION: Ms. [place] Neri is a 63-year-old female with history of confusion. The patient is suspected to have hypoxic and metabolic encephalopathy. This EEG was requested to evaluate for epileptiform abnormalities or electrographic seizures. CLINICAL STATE: Awake and drowsy. REPORT: The waking background showed appropriate organization with clearly defined anterior-posterior voltage and frequency gradients. There was a well- defined, fast posterior dominant rhythm of 15 Hz, which was seen throughout the recording. Anteriorly, there was an expected pattern of lower voltage, irregular mixed fast frequencies. There were paroxysmal, diffuse 5-8 Hz theta slowing throughout the recording. There were no clear epileptiform discharges or electrographic seizures. Attenuation of the occipital rhythm accompanied drowsiness. Hyperventilation and photic stimulation were not performed. EKG showed a sinus tachycardia with a rate of 110 beats per minute. CLINICAL IMPRESSION: This is an abnormal awake and drowsy EEG due to the presence of diffuse state of slowing of the background with superimposed beta frequencies. These findings are suggestive of a mild, nonspecific, diffuse encephalopathy with beta frequency typically seen with benzodiazepine therapy. [id number] #: [id number] MTDD
[2019-05-03] MEDS: NS 0.9% 1000 ML** 1,000 ML IV SCH (23:24)
[2019-05-04] MEDS: oxyCODONE TAB* 5 MG TAB PO PRN ×3 (00:24→13:56)
[2019-05-04] MEDS: Albuterol/Ipratropium NEB.SOL* Albuterol 2.5 MG/Ipratropium 0.5 MG 3 ML INH SCH ×2 (02:31→07:43)
[2019-05-04] MEDS ORDERED: HYDROmorphone INJ* 0.5 MG/0.5 ML SYRINGE IV ONE (04:45)
[2019-05-04 05:47] LABS: ABS Eosinophils 0.1 10^3/ul (0-0.6); ABS Lymphocytes 1.1 10^3/ul (1.0-4.8); ABS Monocytes 0.6 10^3/ul (0-0.8); ABS Neutrophils 4.9 10^3/ul (1.5-7.7); Eosinophil % 1.1 %; Hematocrit 34 % (35-47); Hemoglobin 11.6 g/dL (12.0-16.0); Lymphocyte % 16.5 %; Mean Corpuscular HGB Conc 35 g/dL (31-36); Mean Corpuscular Hemoglobin 31 pg (27-31); Mean Corpuscular Volume 90 fL (80-97); Mean Platelet Volume 7.7 fL (7.4-10.4); Platelet Count 219 10^3/uL (150-450); Red Blood Count 3.73 10^6 /uL (3.70-4.87); Red Cell Distribution Width 14 % (10-15); White Blood Count 6.7 10^3/uL (3.5-10.8)
[2019-05-04 06:02] LABS: Albumin 3.1 g/dL (3.2-5.2); Albumin/Globulin Ratio 1.3 (1-3); BUN/Creatinine Ratio 12.8 (8-20); Calcium 8.8 mg/dL (8.6-10.3); EGFR African American 161.9 (>60); EGFR Non-African American 133.8 (>60); Globulin 2.3 g/dL (2-4); Potassium 3.3 mmol/L (3.5-5.0); Total Bilirubin 0.8 mg/dL (0.2-1.0); Total Protein 5.4 g/dL (6.4-8.9)
[2019-05-04] MEDS: KCL 20 MEQ/100 ML IVPREMIX* 20 MEQ/100 ML BAG IV SCH ×2 (07:16→09:58)
[2019-05-04] MEDS ORDERED: Potassium Chlor TAB* 20 MEQ TAB.ER PO ONE (08:27)
[2019-05-04] MEDS ORDERED: Magnesium Sulfate 2 GM IV* 2 GM/50 ML BAG IVPB ONE (08:28)
[2019-05-04] MEDS ORDERED: KCL 10 MEQ/50 ML IVPREMIX* 10 MEQ/50 ML BAG IV ONE (08:28)
[2019-05-04] MEDS: Folic Acid TAB* 1 MG PO SCH (09:58)
[2019-05-04] MEDS: Metoprolol Tartrate TAB* 25 MG PO SCH (09:58)
[2019-05-04] MEDS: Aspirin EC TAB* 81 MG TAB.EC PO SCH (09:58)
[2019-05-04] MEDS: Multivitamins/Minerals TAB PO SCH (09:58)
[2019-05-04] MEDS: LORazepam TAB(*) 1 MG PO PRN ×2 (10:00→20:22)
[2019-05-04] MEDS: guaiFENesin ER TAB 600 MG PO SCH ×2 (10:00→20:22)
[2019-05-04] MEDS: Thiamine INJ* 500 MG in NS 0.9% 250 ML* 250 ML IV SCH (11:32)
[2019-05-04] MEDS ORDERED: Albuterol/Ipratropium NEB.SOL* Albuterol 2.5 MG/Ipratropium 0.5 MG 3 ML INH PRN ×2 (11:42→11:46)
[2019-05-04] MEDS ORDERED: Piperacillin/Tazobac ADVAN(*) 3.375 GM in NS 0.9% 100 ML* 100 ML IVPB ONE (14:01)
[2019-05-04] MEDS ORDERED: Furosemide IV* 10 MG/ML VIAL (40 MG) IV SLOW PU ONE (14:45)
[2019-05-04] MEDS ORDERED: Zosyn per Pharmacy* NOTE FOLLOW UP SCH (15:00)
--- NOTE | 2019-05-04 15:03 | PN ---
Subjective Date of Service: 05/04/19 Interval History: Patient seen and examined. Mild fevers today with increased cough. Patient still requires frequent reorientation, complains of pain in her back and neck, denies SOB, no chest pain, no n/v. No further complaints, but continues to take c-collar off despite nursing's best efforts. Objective Active Medications: Acetaminophen (Tylenol Tab*) 650 mg PO Q4H PRN PRN Reason: MILD PAIN or TEMP > 100.4 Albuterol/Ipratropium (Duoneb (Albuterol 2.5 Mg/Ipratropium 0.5 Mg)) 1 neb INH RT.[id number] AWAKE PRN PRN Reason: WHEEZING Aspirin (Aspirin Ec Tab*) 81 mg PO DAILY [facility] Last Admin: 05/04/19 09:58 Dose: 81 mg Atorvastatin Calcium (Lipitor*) 40 mg PO 2100 [facility] Last Admin: 05/03/19 21:42 Dose: 40 mg Folic Acid (Folvite Tab*) 1 mg PO DAILY [facility] Last Admin: 05/04/19 09:58 Dose: 1 mg Guaifenesin (Mucinex*) 600 mg PO BID [facility] Last Admin: 05/04/19 10:00 Dose: 600 mg Heparin Sodium (Porcine) (Heparin Vial(*)) 0 units IV .PER PROTOCOL [facility] Last Admin: 05/03/19 03:36 Dose: 1,950 units Thiamine HCl 500 mg/ Sodium (Chloride) 255 mls @ 255 mls/hr IV DAILY [facility] Stop: 05/04/19 23:59 Last Admin: 05/04/19 11:32 Dose: 255 mls/hr Lorazepam (Ativan Inj*) 0 - 3 mg IV PUSH .PER [facility] PROTOCOL [facility]; Protocol Lorazepam (Ativan Tab(*)) 1 mg PO TID PRN PRN Reason: ANXIETY Last Admin: 05/04/19 10:00 Dose: 1 mg Metoprolol Tartrate (Lopressor Iv*) 2.5 mg IV Q6H PRN PRN Reason: BLOOD PRESSURE Metoprolol Tartrate (Lopressor Tab*) 12.5 mg PO DAILY [facility] Last Admin: 05/04/19 09:58 Dose: 12.5 mg Miscellaneous (Ativan Pyxis [place]) 1 ea N/A .ATIVAN IV [place] PRN PRN Reason: PYXIS [place] Multivitamins/Minerals (Theragran/Minerals Tab*) 1 tab PO DAILY [facility] Last Admin: 05/04/19 09:58 Dose: 1 tab Ondansetron HCl (Zofran Inj*) 4 mg IV Q4H PRN PRN Reason: NAUSEA/VOMITING Oxycodone HCl (Roxycodone Tab*) 10 mg PO Q6H PRN PRN Reason: PAIN - SEVERE Last Admin: 05/04/19 13:56 Dose: 10 mg Pharmacy Consult (Zosyn Per Pharmacy*) 1 note FOLLOW UP .ZOSYN PER PHARMACY [facility] Thiamine HCl (Vitamin B-1 Tab*) 100 mg PO Q24H [facility] Vital Signs - 8 hr 05/04/19 05/04/19 05/04/19 07:00 07:16 07:17 Temperature 99.7 F Pulse Rate 91 Respiratory 22 24 23 Rate Blood Pressure 127/92 (mmHg) O2 Sat by Pulse 96 Oximetry 05/04/19 05/04/19 05/04/19 07:48 07:54 08:00 Temperature 99.7 F Pulse Rate 103 113 Respiratory 17 20 24 Rate Blood Pressure 142/87 (mmHg) O2 Sat by Pulse 98 96 Oximetry 05/04/19 05/04/19 05/04/19 09:00 10:00 10:01 Temperature 99.7 F 99.7 F Pulse Rate 102 127 Respiratory 32 24 18 Rate Blood Pressure 133/73 (mmHg) O2 Sat by Pulse 97 97 Oximetry 05/04/19 05/04/19 05/04/19 11:00 12:00 13:00 Temperature 100.4 F 100.4 F 100.4 F Pulse Rate 87 87 97 Respiratory 24 29 29 Rate Blood Pressure 109/76 120/87 132/89 (mmHg) O2 Sat by Pulse 94 97 94 Oximetry Oxygen Devices in Use Now: Nasal Cannula Appearance: alert, periods of agitation Eyes: No Scleral Icterus, PERRLA Ears/Nose/Mouth/Throat: Mucous Membranes Moist Neck: NL Appearance and Movements; NL JVP, Trachea Midline Respiratory: - - mild tachypnea, course rhonchi bilaterally with exp wheeze Cardiovascular: NL Sounds; No Murmurs; No JVD, No Edema - bipedal edema +2, - - tachy low 100's Extremities: No Clubbing, Cyanosis Skin: No Rash or Ulcers Neurological: - - alert, oriented to person and sometimes place Lines/Tubes/Other Access: Clean, Dry and Intact Sherwood Nutrition: Taking PO's Result Diagrams: 05/04/19 05:30 05/04/19 05:30 Microbiology and Other Data: Microbiology 05/02/19 15:30 Urine Culture - Final Urine 05/02/19 23:00 Nasal Screen MRSA (PCR) - Final Nasal Mrsa Not Detected Diagnostic Imaging: Patient Name: ROSS ARANDA Medical Record#: [id number] Ordering Physician: Silva Randhawa DOG BEHAVIORIST Acct.#: [id number] : 1955 Age: 63 Sex: F Location: [facility] Exam Date: 05/04/19 140 ADM Status: ADM IN Order Information: CHEST AP OR PORT Accession Number: [id number] CPT: 35978 HISTORY: cough fever COMPARISONS: May 02, 2019 VIEWS: 1: frontal AP view of the chest at 2:00 PM FINDINGS: LINES AND TUBES: None. CARDIOMEDIASTINAL SILHOUETTE: The cardiomediastinal silhouette is normal for portable technique. PLEURA: The costophrenic angles are sharp. No pleural abnormalities are noted. LUNG PARENCHYMA: There is diffuse pattern of reticular opacification that has progressed from the previous examination. There is patchy linear opacification of the right lower lung. ABDOMEN: The upper abdomen is clear. There is no subphrenic gas. BONES AND SOFT TISSUES: No bone or soft tissue abnormalities are noted. IMPRESSION: PROGRESSION OF PULMONARY INTERSTITIAL EDEMA WITH DEVELOPING AIRSPACE DISEASE OF THE RIGHT LOWER LUNG <Electronically signed by Jordan Shay MD in [place]> 05/04/19 1431 Assess/Plan/Problems-Billing Assessment:
--- NOTE | 2019-05-04 15:09 | PN ---
Date of Service: 05/04/19 Critical Care Services: Ms Aranda was seen and examined in her room. There were no overnight events noted. She was able to tolerate having MRIs last night. her c-collar was replaced with Lummi-J today which she states is more comfortable. She is complaining of cough and fever, no chills. Denies acute SOB, no chest pain. She has neck and back pain at the present. No further complaints. Vital Signs: Temp Pulse Resp BP SpO2 FiO2 100.4 F 97 29 132/89 94 05/04/19 13:00 05/04/19 13:00 05/04/19 13:00 05/04/19 13:00 05/04/19 13:00 Physical Exam: Gen: Alert, with periods of confusion, no agitation, some anxiety HEENT: Atraumatic, normocephalic Lungs: Bilateral rhonchi, course with exp wheeze, mild tachypnea Cardiac: +S1S2, no murmurs, gallops or rubs Abdomen: Soft, benign, no hepatosplenomegaly Extremities: No clubbing cyanosis, bipedal + edema Neuro: EOMs intact, equal emergency medical technician basic, remains encephalopathic requiring reorientation , but does have distinct periods of lucidity and can follow directions, 5/5 gross motor and sensation Fluid Balance (Past 24 Hours): I= 2978 O= 635 Net +2343 Intake & Output 05/02/19 05/03/19 05/04/19 05/05/19 06:59 06:59 06:59 06:59 Intake Total 4200.0 2978.3 60 Output Total 807 635 175 Balance 3393.0 2343.3 -115 Weight 156 lb 8.451 oz 160 lb 15.369 oz Intake: IV Fluids 3836 2189 Banana Bag 1000 Keppra 100 NS 1636 1968 Thiamin 221 IVPB 221 KCl 221 Medicated IV 143.0 189.3 Heparin 143.0 189.3 Oral 600 60 Output: Sherwood 807 635 175 Labs: Laboratory Results - last 24 hr 05/03/19 05/03/19 05/04/19 14:36 15:52 05:30 WBC 6.7 RBC 3.73 Hgb 11.6 L Hct 34 L MCV 90 MCH 31 MCHC 35 RDW 14 Plt Count 219 MPV 7.7 Neut % (Auto) 73.3 Lymph % (Auto) 16.5 [place] % (Auto) 8.5 Eos % (Auto) 1.1 Baso % (Auto) 0.6 Absolute Neuts (auto) 4.9 Absolute Lymphs (auto) 1.1 Absolute Monos (auto) 0.6 Absolute Eos (auto) 0.1 Absolute Basos (auto) 0.0 Absolute Nucleated RBC 0.0 Nucleated RBC % 0.0 APTT 48.8 H Sodium 130 L Potassium 3.3 L Chloride 102 Carbon Dioxide 21 L Anion Gap 7 BUN 6 Creatinine 0.42 L Est GFR ( Amer) 184.4 Est GFR (Non-Af Amer) 152.4 BUN/Creatinine Ratio 14.3 Glucose 85 Calcium 8.4 L Total Bilirubin AST ALT Alkaline Phosphatase Total Protein Albumin Globulin Albumin/Globulin Ratio 05/04/19 05:30 WBC RBC Hgb Hct MCV MCH MCHC RDW Plt Count MPV Neut % (Auto) Lymph % (Auto) [place] % (Auto) Eos % (Auto) Baso % (Auto) Absolute Neuts (auto) Absolute Lymphs (auto) Absolute Monos (auto) Absolute Eos (auto) Absolute Basos (auto) Absolute Nucleated RBC Nucleated RBC % APTT Sodium 129 L Potassium 3.3 L Chloride 102 Carbon Dioxide 21 L Anion Gap 6 BUN 6 Creatinine 0.47 L Est GFR ( Amer) 161.9 Est GFR (Non-Af Amer) 133.8 BUN/Creatinine Ratio 12.8 Glucose 104 H Calcium 8.8 Total Bilirubin 0.80 AST 17 ALT 11 Alkaline Phosphatase 70 Total Protein 5.4 L Albumin 3.1 L Globulin 2.3 Albumin/Globulin Ratio 1.3 Studies: Patient Name: ROSS ARANDA Medical Record#: [id number] Ordering Physician: Rachel Wylie APARTMENT COMMUNITY ASSISTANT MANAGER Acct.#: [id number] : 1955 Age: 63 Sex: F Location: [facility] Exam Date: 05/02/191845 ADM Status: ADM IN Order Information: CTA HEAD/NECK Accession Number: [id number] CPT: 10791 ADDENDUM Addendum created by Roc Moseley MD on 05/02/2019 9:25:39 PM EDT THIS REPORT CONTAINS FINDINGS THAT MAY BE CRITICAL TO PATIENT CARE. The findings were verbally communicated via telephone conference with Dr. Arteaga at 9:25 PM EDT on 05/02/2019. The findings were acknowledged and understood. Initial report created on 05/02/2019 8:50:16 PM EDT EXAM: CT Angiography Head With Contrast EXAM DATE/TIME: 05/02/2019 7:50 PM CLINICAL HISTORY: 63 years old, female; Other: Possible CVA; Additional info: Eval for CVA TECHNIQUE: Imaging protocol: Computed tomography angiography of the head with intravenous contrast. 3D rendering: MIP reconstructed images were created and reviewed. Radiation optimization: All CT scans at this facility use at least one of these dose optimization techniques: automated exposure control; mA and/or kV adjustment per patient size (includes targeted exams where dose is matched to clinical indication); or iterative reconstruction. Contrast material: OMNI 350; Contrast volume: 80 ml; Contrast route: IV; COMPARISON: BRAIN WO CT BRAIN WO 07/12/2015 3:54 PM FINDINGS: Right internal carotid artery: Mild atherosclerosis of the right internal carotid artery, with less than 50% stenosis. No aneurysm. Right anterior cerebral artery: No occlusion or significant stenosis. No aneurysm. Right middle cerebral artery: No occlusion or significant stenosis. No aneurysm. Right posterior cerebral artery: No occlusion or significant stenosis. No aneurysm. Right vertebral artery: The right vertebral artery is diffusely small in caliber, without occlusion. Left internal carotid artery: Mild atherosclerosis of the left internal carotid artery, with less than 50% stenosis. No aneurysm. Left anterior cerebral artery: No occlusion or significant stenosis. No aneurysm. Left middle cerebral artery: No occlusion or significant stenosis. No aneurysm. NECK: Thyroid: A few nodules are identified within the right thyroid lobe. One of these nodules measures 1.2 cm. Bones/joints: Reversal of the lordotic curvature of the cervical spine. Spondylosis visualized at multiple cervical levels. Soft tissues: No significant soft tissue swelling. Lungs: Mild emphysematous changes within the lungs. IMPRESSION: 1. There is absence of flow within the proximal right vertebral artery, consistent with occlusion. This involves the V1 and proximal V2 segments. There is partial reconstitution of flow more distally within the vertebral artery. 2. Atherosclerosis and mural thrombus are visualized involving the left carotid bifurcation. There is less than 50% stenosis of the distal left common carotid artery. 3. Less than 50% stenosis of the proximal left internal carotid artery. 4. Anterior to the right glenoid process, there is a 2.2 x 1.8 cm mineralized loose body. 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 5. There is a moderate compression fracture of the C3 vertebral body. Mild compression fractures are identified at T2 and T3. These findings are indeterminate in acuity. Clinical correlation and correlation with prior studies recommended. 6. Additional findings described above. COMMENT: 1. Reference per NASCET criteria for degree of stenosis: Mild: less than 50% stenosis. Moderate: 50-69% stenosis. Severe: 70-94% stenosis. Near occlusion: 95-99% stenosis. 2. In patients aged 35 years and older with an incidental thyroid nodule equal to or greater than 1.[address], MRI or extrathyroidal US, further evaluation with dedicated thyroid US is recommended for patients with normal life expectancy and without comorbidities. For smaller nodules without suspicious features, no further evaluation or follow up is recommended. EXAM: CT Angiography Head With Contrast EXAM DATE/TIME: 05/02/2019 7:50 PM CLINICAL HISTORY: 63 years old, female; Other: Possible CVA; Additional info: Eval for CVA adjustment per patient size (includes targeted exams where dose is matched to clinical indication); or iterative reconstruction. Contrast material: OMNI 350; Contrast volume: 80 ml; Contrast route: IV; COMPARISON: BRAIN WO CT BRAIN WO 07/12/2015 3:54 PM FINDINGS: Right internal carotid artery: Mild atherosclerosis of the right internal carotid artery, with less than 50% stenosis. No aneurysm. Right anterior cerebral artery: No occlusion or significant stenosis. No aneurysm. Right middle cerebral artery: No occlusion or significant stenosis. No aneurysm. Right posterior cerebral artery: No occlusion or significant stenosis. No aneurysm. Right vertebral artery: The right vertebral artery is diffusely small in caliber, without occlusion. Left internal carotid artery: Mild atherosclerosis of the left internal carotid artery, with less than 50% stenosis. No aneurysm. Left anterior cerebral artery: No occlusion or significant stenosis. No aneurysm. Left middle cerebral artery: No occlusion or significant stenosis. No aneurysm. Left posterior cerebral artery: No occlusion or significant stenosis. No aneurysm. Left vertebral artery: No significant stenosis or occlusion of the left vertebral artery. A dominant left vertebral artery is identified. Basilar artery: No occlusion or significant stenosis. No aneurysm. IMPRESSION: 1. Mild atherosclerosis of the internal carotid arteries, with less than 50% stenoses bilaterally. 2. A dominant left vertebral artery is identified. EXAM: CT Angiography Neck With Contrast EXAM DATE/TIME: 05/02/2019 7:50 PM CLINICAL HISTORY: 63 years old, female; Other: Possible CVA; Additional info: Eval for CVA TECHNIQUE: Imaging protocol: Computed tomographic angiography images of the neck with intravenous contrast using CT angiography protocol. 3D rendering: MIP reconstructed images were created and reviewed. Radiation optimization: All CT scans at this facility use at least one of these dose optimization techniques: automated exposure control; mA and/or kV adjustment per patient size (includes targeted exams where dose is matched to clinical indication); or iterative reconstruction. Contrast material: OMNI 350; Contrast volume: 80 ml; Contrast route: IV; COMPARISON: BRAIN WO CT BRAIN WO 07/12/2015 3:54 PM FINDINGS: VASCULATURE: Right common carotid artery: No significant stenosis. No dissection or occlusion. Right internal carotid artery: Extracranial segment is patent with no stenosis. No dissection or occlusion. Right external carotid artery: No occlusion or significant stenosis. Right vertebral artery: There is absence of flow within the proximal right vertebral artery, consistent with occlusion. This involves the V1 and proximal V2 segments. There is partial reconstitution of flow more distally within the vertebral artery. There is a moderate compression fracture of the C3 vertebral body. Mild compression fractures are identified at T2 and T3. These findings are indeterminate in acuity. Left common carotid artery: Artifact limits evaluation of the proximal left common carotid artery. Atherosclerosis and mural thrombus are visualized involving the left carotid bifurcation. There is less than 50% stenosis of the distal left common carotid artery. Left internal carotid artery: Atherosclerosis and less than 50% stenosis of the proximal left internal carotid artery. Left external carotid artery: No occlusion or significant stenosis. Left vertebral artery: Mild stenosis of the proximal left vertebral artery. A dominant left vertebral artery is identified. Subclavian arteries: Atherosclerotic changes are identified of the right subclavian artery without significant stenosis. Venous enhancement limits evaluation of the left subclavian artery. Other vasculature: Anterior to the right glenoid process, there is a 2.2 x 1.8 cm mineralized loose body. Synovial osteochondromatosis is within the differential. NECK: Thyroid: A few nodules are identified within the right thyroid lobe. One of these nodules measures 1.2 cm. Bones/joints: Reversal of the lordotic curvature of the cervical spine. Spondylosis visualized at multiple cervical levels. Soft tissues: No significant soft tissue swelling. Lungs: Mild emphysematous changes within the lungs. IMPRESSION: 1. There is absence of flow within the proximal right vertebral artery, consistent with occlusion. This involves the V1 and proximal V2 segments. There is partial reconstitution of flow more distally within the vertebral artery. 2. Atherosclerosis and mural thrombus are visualized involving the left carotid bifurcation. There is less than 50% stenosis of the distal left common carotid artery. 3. Less than 50% stenosis of the proximal left internal carotid artery. 4. Anterior to the right glenoid process, there is a 2.2 x 1.8 cm mineralized loose body. 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 5. There is a moderate compression fracture of the C3 vertebral body. Mild compression fractures are identified at T2 and T3. These findings are indeterminate in acuity. Clinical correlation and correlation with prior studies recommended. 6. Additional findings described above. COMMENT: 1. Reference per NASCET criteria for degree of stenosis: Mild: less than 50% stenosis. Moderate: 50-69% stenosis. Severe: 70-94% stenosis. Near occlusion: 95-99% stenosis. 2. In patients aged 35 years and older with an incidental thyroid nodule equal to or greater than 1.[address], MRI or extrathyroidal US, further evaluation with dedicated thyroid US is recommended for patients with normal life expectancy and without comorbidities. For smaller nodules without suspicious features, no further evaluation or follow up is recommended. CARDIA ECHO *[facility]* [place] [address] Fax #: [phone] Transthoracic Echocardiogram Patient: Ross Aranda : 1955 Study Date: 05/03/2019 Age: 63 Gender: F HR: 91 bpm Height: 63 in /160 cm BSA: 1.71 m^2 Weight: 143 lb /65 kg BMI: 25.4 kg/m^2 *[employer] Consultant: * Mera Castillo [facility] *Referring Physician: * Rachel Wylie *Reading Physician: * Adrian Dixon MD Indications: Abnormal EKG. History: Pulmonary Embolism. COPD. PMH: Cardiomyopathy. Risk factors: Current tobacco use. Hypertension. Pleural Effusions. Conclusions Summary: - Left ventricle: Systolic function is mildly reduced. The estimated ejection fraction is 45-50%. - Regional wall motion abnormality: Moderate hypokinesis of the apical myocardium; mild hypokinesis of the apical anterior and apical inferior myocardium. - Right ventricle: Systolic function is normal. - Mitral valve: There is trace regurgitation. - Aortic valve: There is no evidence of stenosis. There is trace regurgitation. - Tricuspid valve: There is trace to mild regurgitation. - Pericardium, extracardiac: There is no significant pericardial effusion. - Pulmonary arteries: Systolic pressure can not be accurately estimated. Impression: This is a 63 year old female with history of non ischemic cardiomyopathy, tobacco abuse, ETOH abuse, chronic pain, osteoarthritis that presented to the ED after being found on the floor twice in 24 hours and brought to the ED with AMS, electrolyte abnormalities, EKG changes and troponinemia, now found to also have vertebral artery occlusion, C2 and thoracic compression fractures and persistent encephalopathy. Diagnoses: 1. Metabolic Encphalopathy, etiology unclear 2. Hyponatremia/Hypokalemia 3. Vertebral Artery Occlusion 4. EKG Changes 5. Elevated Troponin 6. Non Ischemic Cardiomyopathy 7. C2 Compression Fracture 8. T2 and T3 Compression Fractures 9. Chronic Pain 10. Tobacco Abuse 11. Fluid overload 12. Cough/Fever 13. Aspiration Pneumonitis Plan: Neuro: - Neuro consulted and following - EEG with no seizure activity, keppra DCd - MRI brain with no acute CVA, MRI cspine with noted compression fracture, MRI thoracic with chronic fractures only - Telestroke did not recommend transfer for clot retrieval/intervention for vertebral artery occlusion - Continue thiamine, folic acid and optimize/replete lytes - Continue asa, statin - Continue Lummi J collar for Cspine precautions CV: - Cardiology consulted, recommends getting neuro deficits under control before approaching any cardiac issues - Does appear fluid overloaded today, will give 40mg lasix - ECHO as above, etiology of NICM unclear - Trops .048/.056/0.36 with no complaints of chest pain, likely demand in setting of hypoxia and cardiomyopathy - Continue tele, daily EKGs - Continue low dose metoprolol and ASA, consider CAMRON Pulm: - Sats adequate on nasal canula, no further hypoxia but cough increasing with rhonchi - Nebs PRN with flutter valve - ABG without CO2 retention - CXR today with early consolidation on right, aspiration? Start zosyn and monitor temps and white count GI: - No GI issues at present /Renal: - Sherwood catheter for hemodynamic monitoring - BUN low, Creat normal, monitor Musculoskeletal: - PRN oxycodone, monitor for sedation - PT when stable/clear by neurosurgery - BR with HOB @30 on bedrest - Cspine precautions ID: - Zosyn to cover for possible aspiration pneumonitis FEN - heart healthy diet DVT - SCDs, off heparin drip, start heparin SQ Code Status - Full code Critical Care Time: 75mins
[2019-05-04] MEDS: ZOSYN 3.375 GM Q8H per EXTENDED INFUSION IVPB SCH ×2 (19:45)
[2019-05-04] MEDS: Atorvastatin* 40 MG TAB PO SCH (20:22)
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
[2019-05-05] MEDS: oxyCODONE TAB* 5 MG TAB PO PRN ×4 (00:45→21:25)
[2019-05-05] MEDS: ZOSYN 3.375 GM Q8H per EXTENDED INFUSION IVPB SCH ×6 (03:45→18:36)
[2019-05-05] MEDS: LORazepam TAB(*) 1 MG PO PRN ×2 (03:45→21:24)
[2019-05-05 04:13] LABS: ABS Basophils 0.1 10^3/ul (0-0.2); ABS Monocytes 0.9 10^3/ul (0-0.8); ABS Neutrophils 5.3 10^3/ul (1.5-7.7); Eosinophil % 0.5 %; Hematocrit 33 % (35-47); Hemoglobin 11.5 g/dL (12.0-16.0); Lymphocyte % 13.6 %; Mean Corpuscular HGB Conc 35 g/dL (31-36); Mean Corpuscular Hemoglobin 31 pg (27-31); Mean Corpuscular Volume 89 fL (80-97); Mean Platelet Volume 7.9 fL (7.4-10.4); Platelet Count 227 10^3/uL (150-450); Red Blood Count 3.67 10^6 /uL (3.70-4.87); Red Cell Distribution Width 14 % (10-15); White Blood Count 7.3 10^3/uL (3.5-10.8)
[2019-05-05 04:41] LABS: Albumin 2.4 g/dL (3.2-5.2); Albumin/Globulin Ratio 1.3 (1-3); BUN/Creatinine Ratio 18.4 (8-20); Calcium 6.8 mg/dL (8.6-10.3); Globulin 1.8 g/dL (2-4); Potassium 2.9 mmol/L (3.5-5.0); Total Bilirubin 0.6 mg/dL (0.2-1.0); Total Protein 4.2 g/dL (6.4-8.9)
[2019-05-05] MEDS ORDERED: Potassium Chlor TAB* 20 MEQ TAB.ER PO ONE ×2 (04:50→07:52)
[2019-05-05] MEDS: Metoprolol Tartrate TAB* 25 MG PO SCH (08:00)
[2019-05-05] MEDS: Aspirin EC TAB* 81 MG TAB.EC PO SCH (08:00)
[2019-05-05] MEDS: Thiamine TAB* 100 MG TAB PO SCH (08:00)
[2019-05-05] MEDS: Folic Acid TAB* 1 MG PO SCH (08:00)
[2019-05-05] MEDS: Multivitamins/Minerals TAB PO SCH (08:00)
[2019-05-05] MEDS: guaiFENesin ER TAB 600 MG PO SCH ×2 (08:00→21:24)
--- NOTE | 2019-05-05 09:59 | PN ---
Subjective Date of Service: 05/05/19 Length of Stay: 3 Days Neurology is following for confusion. Interval History: The patient is feeding herself this morning. She refused to be fed and informed the examiner that she wants to still keep some "pride." She shared with me her drinking habits. She consumes only hard liquor and the quantity can range from one shot to a few shots. She stated, "it all depends how depressed I am that day." She still has back pain. She has generalized malaise but no focal weakness. She denied any headaches. She denied any visual disturbance. Review of Systems: Denied CP or palpitations. Objective Active Medications: Acetaminophen (Tylenol Tab*) 650 mg PO Q4H PRN PRN Reason: MILD PAIN or TEMP > 100.4 Albuterol/Ipratropium (Duoneb (Albuterol 2.5 Mg/Ipratropium 0.5 Mg)) 1 neb INH [id number] AWAKE PRN PRN Reason: WHEEZING Aspirin (Aspirin Ec Tab*) 81 mg PO DAILY [facility] Last Admin: 05/05/19 08:00 Dose: 81 mg Atorvastatin Calcium (Lipitor*) 40 mg PO 2100 [facility] Last Admin: 05/04/19 20:22 Dose: 40 mg Folic Acid (Folvite Tab*) 1 mg PO DAILY [facility] Last Admin: 05/05/19 08:00 Dose: 1 mg Guaifenesin (Mucinex*) 600 mg PO BID [facility] Last Admin: 05/05/19 08:00 Dose: 600 mg Piperacillin Sod/Tazobactam (Sod 3.375 gm/ Sodium Chloride) 100 mls @ 25 mls/ hr IVPB Q8H IVETTE Last Admin: 05/05/19 03:45 Dose: 25 mls/hr Potassium Chloride (Potassium Chloride 10 Meq/50 Ml Ivpremix*) 10 meq in 50 mls @ 50 mls/hr IV Q1H IVETTE Stop: 05/05/19 10:59 Levothyroxine Sodium (Synthroid Tab*) 25 mcg PO DAILY@0600 [facility] Lorazepam (Ativan Inj*) 0 - 3 mg IV PUSH .[facility] PROTOCOL IVETTE; Protocol Lorazepam (Ativan Tab(*)) 1 mg PO TID PRN PRN Reason: ANXIETY Last Admin: 05/05/19 03:45 Dose: 1 mg Metoprolol Tartrate (Lopressor Iv*) 2.5 mg IV Q6H PRN PRN Reason: BLOOD PRESSURE Metoprolol Tartrate (Lopressor Tab*) 12.5 mg PO DAILY [facility] Last Admin: 05/05/19 08:00 Dose: 12.5 mg Miscellaneous (Ativan Pyxis Alston) 1 ea N/A .ATIVAN IV ALSTON PRN PRN Reason: PYXIS ALSTON Multivitamins/Minerals (Theragran/Minerals Tab*) 1 tab PO DAILY [facility] Last Admin: 05/05/19 08:00 Dose: 1 tab Ondansetron HCl (Zofran Inj*) 4 mg IV Q4H PRN PRN Reason: NAUSEA/VOMITING Oxycodone HCl (Roxycodone Tab*) 10 mg PO Q6H PRN PRN Reason: PAIN - SEVERE Last Admin: 05/05/19 07:54 Dose: 10 mg Pharmacy Consult (Zosyn Per Pharmacy*) 1 note FOLLOW UP .ZOSYN PER PHARMACY [facility] Thiamine HCl (Vitamin B-1 Tab*) 100 mg PO Q24H [facility] Last Admin: 05/05/19 08:00 Dose: 100 mg Vital Signs 05/04/19 05/04/19 05/04/19 10:00 10:01 11:00 Temperature 99.7 F 100.4 F Pulse Rate 127 87 Respiratory 24 18 24 Rate Blood Pressure 133/73 109/76 (mmHg) O2 Sat by Pulse 97 94 Oximetry 05/04/19 05/04/19 05/04/19 12:00 12:15 13:00 Temperature 100.4 F 100.4 F Pulse Rate 87 97 Respiratory 29 28 24 Rate Blood Pressure 120/87 132/89 (mmHg) O2 Sat by Pulse 97 94 Oximetry 05/04/19 05/04/19 05/04/19 14:00 15:00 15:30 Temperature 100.8 F 101.1 F Pulse Rate 103 95 Respiratory 50 23 26 Rate Blood Pressure 152/104 128/86 (mmHg) O2 Sat by Pulse 93 100 Oximetry 05/04/19 05/04/19 05/04/19 16:00 17:00 17:03 Temperature 100.9 F 100.4 F Pulse Rate 94 107 Respiratory 24 23 29 Rate Blood Pressure 127/80 143/97 (mmHg) O2 Sat by Pulse 98 97 Oximetry 05/04/19 05/04/1919 18:00 18:01 18:48 Temperature 100.4 F Pulse Rate 107 Respiratory 26 27 29 Rate Blood Pressure 133/88 (mmHg) O2 Sat by Pulse 98 Oximetry 05/04/19 05/04/19 05/04/19 19:00 19:24 19:59 Temperature 100.8 F 100.8 F Pulse Rate 107 109 Respiratory 27 29 32 Rate Blood Pressure 119/74 (mmHg) O2 Sat by Pulse 93 96 Oximetry 05/04/19 05/04/19 05/04/19 20:00 20:22 21:00 Temperature 101.3 F 100.8 F Pulse Rate 111 107 Respiratory 34 24 24 Rate Blood Pressure 129/91 (mmHg) O2 Sat by Pulse 95 96 Oximetry 05/04/19 05/04/19 05/04/19 21:02 22:00 22:01 Temperature 100.8 F 101.1 F 101.1 F Pulse Rate 114 87 98 Respiratory 39 22 21 Rate Blood Pressure 101/71 (mmHg) O2 Sat by Pulse 99 97 97 Oximetry 05/04/19 05/04/19 05/05/19 23:00 23:20 00:00 Temperature 100.9 F 100.9 F 100.9 F Pulse Rate 103 92 100 Respiratory 25 21 22 Rate Blood Pressure 120/72 (mmHg) O2 Sat by Pulse 97 98 97 Oximetry 05/05/19 05/05/19 05/05/19 00:01 01:00 01:01 Temperature 100.9 F 100.2 F 100.4 F Pulse Rate 98 102 99 Respiratory 21 28 25 Rate Blood Pressure 95/58 128/66 (mmHg) O2 Sat by Pulse 97 98 97 Oximetry 05/05/19 05/05/19 05/05/19 02:00 02:01 03:00 Temperature 100.0 F 99.9 F 99.9 F Pulse Rate 105 101 107 Respiratory 20 20 17 Rate Blood Pressure 100/66 122/85 (mmHg) O2 Sat by Pulse 96 96 83 Oximetry 05/05/19 05/05/19 03:45 04:00 Temperature 100.2 F Pulse Rate 104 Respiratory 20 27 Rate Blood Pressure 122/89 (mmHg) O2 Sat by Pulse 100 Oximetry Intake and Output Last 24 Hours 05/03/19 05/04/19 05/05/19 05/06/19 06:59 06:59 06:59 06:59 Intake Total 4200.0 2978.3 1220 Output Total 853 951 9088 Balance 3393.0 2343.3 -1994 Weight 156 lb 8.451 oz 160 lb 15.369 oz 162 lb 11.218 oz Intake: IV Fluids 3836 2189 405 Banana Bag 1000 Keppra 100 NS 1636 1968 405 Thiamin 221 IVPB 221 755 ABX - ZOSYN 205 KCl 221 200 Thiamin 250 magnesium 100 Medicated IV 143.0 189.3 Heparin 143.0 189.3 Oral 600 60 Output: [place] [phone] Oxygen Devices in Use Now: Nasal Cannula Neurology Exam: General: Ill appearing female in no distress. HEENT: Normocephelic/atraumatic, sclera anicteric, mucous membranes moist Neck: Supple Chest: Clear to auscultation bilaterally Cardiovascular: Regular rate and rhythm without murmurs, rubs, gallops Extremities: No clubbing, cyanosis, or edema Neurological Findings: Awake, alert, and oriented to person, place, and time. Speech: fluent without dysarthria, repetition intact Cranial Nerve: PERRL, EOM intact, VFF, no nystagmus, face symmetric bilaterally Motor: moves all extremities but has restricted movement in the proximal lower extremities due to back pain Sensation: intact to LT/PP bilaterally upper and lower extremities Deep Tendon Reflex: 1+ throughout with absent at the ankles Coordination: Finger to nose symmetrically bilaterally Gait: n/a Result Diagrams: 05/05/19 03:55 05/05/19 03:55 Microbiology and Other Data: Microbiology 05/02/19 15:30 Urine Culture - Final Urine 05/02/19 23:00 Nasal Screen MRSA (PCR) - Final Nasal Mrsa Not Detected Diagnostic Imaging: Patient Name: ROSS ARANDA Medical Record#: [id number] Ordering Physician: Silva Randhawa NP Acct.#: [id number] : 1955 Age: 63 Sex: F Location: [facility] Exam Date: 05/04/19 140 ADM Status: ADM IN Order Information: CHEST AP OR PORT Accession Number: [id number] CPT: 34469 HISTORY: cough fever COMPARISONS: May 02, 2019 VIEWS: 1: frontal AP view of the chest at 2:00 PM FINDINGS: LINES AND TUBES: None. CARDIOMEDIASTINAL SILHOUETTE: The cardiomediastinal silhouette is normal for portable technique. PLEURA: The costophrenic angles are sharp. No pleural abnormalities are noted. LUNG PARENCHYMA: There is diffuse pattern of reticular opacification that has progressed from the previous examination. There is patchy linear opacification of the right lower lung. ABDOMEN: The upper abdomen is clear. There is no subphrenic gas. BONES AND SOFT TISSUES: No bone or soft tissue abnormalities are noted. IMPRESSION: PROGRESSION OF PULMONARY INTERSTITIAL EDEMA WITH DEVELOPING AIRSPACE DISEASE OF THE RIGHT LOWER LUNG <Electronically signed by Jordan Shay MD in [place]> 05/04/19 1431 Assessment/Plan 1. Acute encephalopathy due to the combination of hypoxic and toxic encephalopathy- has recovered well. She was off her oxygen therapy this past weekend which I wonder if that triggered her confusion state. She either responded well to oxygen therapy, the discontinuation of sedatives, or the high dose thiamine replacement therapy. 2. Cervical and thoracic compression fractures- likely the cause of her pain and limited range of motion of the lower extremities. Neurosurgery is following. Recommendations: - PT/OT evaluate and treat - Continue oxygen therapy - Continue thiamine 100 mg PO daily - No need for seizure medications - Pain control - Neuro checks every 4 hours for the next 24 hours - Follow-up with neurosurgical recommendation for the cervical spondylosis and compression fractures. She is not the best candidate for spine surgery at this time, but this can be considered in the future. - Fall precautions - I will sign off but please contact me for any concerns.
[2019-05-05] MEDS: KCL 10 MEQ/50 ML IVPREMIX* 10 MEQ/50 ML BAG IV SCH (11:24)
--- NOTE | 2019-05-05 15:03 | PN ---
Date of Service: 05/05/19 Critical Care Services: Patient seen and examined. Remains in ICU, but clinically improving. She had issues with potassium and sodium which have been repleted and are improved. Her mentation is also improving slowly. She is less forgetful and does not require significant reorientation throughout the day. She reports that her pain is better controlled, she remains with low grade fever and cough. She is very concerned about her cat and dog at home and requests to talk with director of social media marketing about this. Otherwise no acute overnight events. 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, 5/5 motor and sensation, forgetful Fluid Balance (Past 24 Hours): I= 1220 O= 3215 -1994 Intake & Output 05/03/19 05/04/19 05/05/19 05/06/19 06:59 06:59 06:59 06:59 Intake Total 4200.0 2978.3 1220 240 Output Total 031 308 3511 115 Balance 3393.0 2343.3 -1994 125 Weight 156 lb 8.451 oz 160 lb 15.369 oz 162 lb 11.218 oz Intake: IV Fluids 3836 2189 405 Banana Bag 1000 Keppra 100 NS 1636 1968 405 Thiamin 221 IVPB 221 755 ABX - ZOSYN 205 KCl 221 200 Thiamin 250 magnesium 100 Medicated IV 143.0 189.3 Heparin 143.0 189.3 Oral 600 60 240 Output: Jimenez 310 041 3357 115 Labs: Laboratory Results - last 24 hr 05/05/19 05/05/19 05/05/19 03:55 03:55 10:40 WBC 7.3 RBC 3.67 L Hgb 11.5 L Hct 33 L MCV 89 MCH 31 MCHC 35 RDW 14 Plt Count 227 MPV 7.9 Neut % (Auto) 72.5 Lymph % (Auto) 13.6 Yancey % (Auto) 12.3 Eos % (Auto) 0.5 Baso % (Auto) 1.1 Absolute Neuts (auto) 5.3 Absolute Lymphs (auto) 1.0 Absolute Monos (auto) 0.9 H Absolute Eos (auto) 0.0 Absolute Basos (auto) 0.1 Absolute Nucleated RBC 0.0 Nucleated RBC % 0.0 Sodium 135 Potassium 2.9 L 4.6 D Chloride 110 Carbon Dioxide 20 L Anion Gap 5 BUN 7 Creatinine 0.38 L Est GFR ( Amer) 207.0 Est GFR (Non-Af Amer) 171.0 BUN/Creatinine Ratio 18.4 Glucose 104 H Calcium 6.8 L Total Bilirubin 0.60 AST 11 L ALT 8 Alkaline Phosphatase 51 Total Protein 4.2 L Albumin 2.4 L Globulin 1.8 L Albumin/Globulin Ratio 1.3 Studies: Patient Name: ROSS ARANDA Medical Record#: [id number] Ordering Physician: Rachel Wylie [place] [employer] Acct.#: [id number] : 1955 Age: 63 Sex: F Location: [facility]ARE [facility]IT Exam Date: 05/02/191845 ADM Status: ADM IN Order Information: CTA HEAD/NECK Accession Number: [id number] CPT: 51378 ADDENDUM Addendum created by Roc Moseley MD on 05/02/2019 9:25:39 PM EDT THIS REPORT CONTAINS FINDINGS THAT MAY BE CRITICAL TO PATIENT CARE. The findings were verbally communicated via telephone conference with Dr. Arteaga at 9:25 PM EDT on 05/02/2019. The findings were acknowledged and understood. Initial report created on 05/02/2019 8:50:16 PM EDT EXAM: CT Angiography Head With Contrast EXAM DATE/TIME: 05/02/2019 7:50 PM CLINICAL HISTORY: 63 years old, female; Other: Possible CVA; Additional info: Eval for CVA TECHNIQUE: Imaging protocol: Computed tomography angiography of the head with intravenous contrast. 3D rendering: MIP reconstructed images were created and reviewed. Radiation optimization: All CT scans at this facility use at least one of these dose optimization techniques: automated exposure control; mA and/or kV adjustment per patient size (includes targeted exams where dose is matched to clinical indication); or iterative reconstruction. Contrast material: OMNI 350; Contrast volume: 80 ml; Contrast route: IV; COMPARISON: BRAIN WO CT BRAIN WO 07/12/2015 3:54 PM FINDINGS: Right internal carotid artery: Mild atherosclerosis of the right internal carotid artery, with less than 50% stenosis. No aneurysm. Right anterior cerebral artery: No occlusion or significant stenosis. No aneurysm. Right middle cerebral artery: No occlusion or significant stenosis. No aneurysm. Right posterior cerebral artery: No occlusion or significant stenosis. No aneurysm. Right vertebral artery: The right vertebral artery is diffusely small in caliber, without occlusion. Left internal carotid artery: Mild atherosclerosis of the left internal carotid artery, with less than 50% stenosis. No aneurysm. Left anterior cerebral artery: No occlusion or significant stenosis. No aneurysm. Left middle cerebral artery: No occlusion or significant stenosis. No aneurysm. NECK: Thyroid: A few nodules are identified within the right thyroid lobe. One of these nodules measures 1.2 cm. Bones/joints: Reversal of the lordotic curvature of the cervical spine. Spondylosis visualized at multiple cervical levels. Soft tissues: No significant soft tissue swelling. Lungs: Mild emphysematous changes within the lungs. IMPRESSION: 1. There is absence of flow within the proximal right vertebral artery, consistent with occlusion. This involves the V1 and proximal V2 segments. There is partial reconstitution of flow more distally within the vertebral artery. 2. Atherosclerosis and mural thrombus are visualized involving the left carotid bifurcation. There is less than 50% stenosis of the distal left common carotid artery. 3. Less than 50% stenosis of the proximal left internal carotid artery. 4. Anterior to the right glenoid process, there is a 2.2 x 1.8 cm mineralized loose body. 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 5. There is a moderate compression fracture of the C3 vertebral body. Mild compression fractures are identified at T2 and T3. These findings are indeterminate in acuity. Clinical correlation and correlation with prior studies recommended. 6. Additional findings described above. COMMENT: 1. Reference per NASCET criteria for degree of stenosis: Mild: less than 50% stenosis. Moderate: 50-69% stenosis. Severe: 70-94% stenosis. Near occlusion: 95-99% stenosis. 2. In patients aged 35 years and older with an incidental thyroid nodule equal to or greater than 1.[address], MRI or extrathyroidal US, further evaluation with dedicated thyroid US is recommended for patients with normal life expectancy and without comorbidities. For smaller nodules without suspicious features, no further evaluation or follow up is recommended. EXAM: CT Angiography Head With Contrast EXAM DATE/TIME: 05/02/2019 7:50 PM CLINICAL HISTORY: 63 years old, female; Other: Possible CVA; Additional info: Eval for CVA adjustment per patient size (includes targeted exams where dose is matched to clinical indication); or iterative reconstruction. Contrast material: OMNI 350; Contrast volume: 80 ml; Contrast route: IV; COMPARISON: BRAIN WO CT BRAIN WO 07/12/2015 3:54 PM FINDINGS: Right internal carotid artery: Mild atherosclerosis of the right internal carotid artery, with less than 50% stenosis. No aneurysm. Right anterior cerebral artery: No occlusion or significant stenosis. No aneurysm. Right middle cerebral artery: No occlusion or significant stenosis. No aneurysm. Right posterior cerebral artery: No occlusion or significant stenosis. No aneurysm. Right vertebral artery: The right vertebral artery is diffusely small in caliber, without occlusion. Left internal carotid artery: Mild atherosclerosis of the left internal carotid artery, with less than 50% stenosis. No aneurysm. Left anterior cerebral artery: No occlusion or significant stenosis. No aneurysm. Left middle cerebral artery: No occlusion or significant stenosis. No aneurysm. Left posterior cerebral artery: No occlusion or significant stenosis. No aneurysm. Left vertebral artery: No significant stenosis or occlusion of the left vertebral artery. A dominant left vertebral artery is identified. Basilar artery: No occlusion or significant stenosis. No aneurysm. IMPRESSION: 1. Mild atherosclerosis of the internal carotid arteries, with less than 50% stenoses bilaterally. 2. A dominant left vertebral artery is identified. EXAM: CT Angiography Neck With Contrast EXAM DATE/TIME: 05/02/2019 7:50 PM CLINICAL HISTORY: 63 years old, female; Other: Possible CVA; Additional info: Eval for CVA TECHNIQUE: Imaging protocol: Computed tomographic angiography images of the neck with intravenous contrast using CT angiography protocol. 3D rendering: MIP reconstructed images were created and reviewed. Radiation optimization: All CT scans at this facility use at least one of these dose optimization techniques: automated exposure control; mA and/or kV adjustment per patient size (includes targeted exams where dose is matched to clinical indication); or iterative reconstruction. Contrast material: OMNI 350; Contrast volume: 80 ml; Contrast route: IV; COMPARISON: BRAIN WO CT BRAIN WO 07/12/2015 3:54 PM FINDINGS: VASCULATURE: Right common carotid artery: No significant stenosis. No dissection or occlusion. Right internal carotid artery: Extracranial segment is patent with no stenosis. No dissection or occlusion. Right external carotid artery: No occlusion or significant stenosis. Right vertebral artery: There is absence of flow within the proximal right vertebral artery, consistent with occlusion. This involves the V1 and proximal V2 segments. There is partial reconstitution of flow more distally within the vertebral artery. There is a moderate compression fracture of the C3 vertebral body. Mild compression fractures are identified at T2 and T3. These findings are indeterminate in acuity. Left common carotid artery: Artifact limits evaluation of the proximal left common carotid artery. Atherosclerosis and mural thrombus are visualized involving the left carotid bifurcation. There is less than 50% stenosis of the distal left common carotid artery. Left internal carotid artery: Atherosclerosis and less than 50% stenosis of the proximal left internal carotid artery. Left external carotid artery: No occlusion or significant stenosis. Left vertebral artery: Mild stenosis of the proximal left vertebral artery. A dominant left vertebral artery is identified. Subclavian arteries: Atherosclerotic changes are identified of the right subclavian artery without significant stenosis. Venous enhancement limits evaluation of the left subclavian artery. Other vasculature: Anterior to the right glenoid process, there is a 2.2 x 1.8 cm mineralized loose body. Synovial osteochondromatosis is within the differential. NECK: Thyroid: A few nodules are identified within the right thyroid lobe. One of these nodules measures 1.2 cm. Bones/joints: Reversal of the lordotic curvature of the cervical spine. Spondylosis visualized at multiple cervical levels. Soft tissues: No significant soft tissue swelling. Lungs: Mild emphysematous changes within the lungs. IMPRESSION: 1. There is absence of flow within the proximal right vertebral artery, consistent with occlusion. This involves the V1 and proximal V2 segments. There is partial reconstitution of flow more distally within the vertebral artery. 2. Atherosclerosis and mural thrombus are visualized involving the left carotid bifurcation. There is less than 50% stenosis of the distal left common carotid artery. 3. Less than 50% stenosis of the proximal left internal carotid artery. 4. Anterior to the right glenoid process, there is a 2.2 x 1.8 cm mineralized loose body. 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 5. There is a moderate compression fracture of the C3 vertebral body. Mild compression fractures are identified at T2 and T3. These findings are indeterminate in acuity. Clinical correlation and correlation with prior studies recommended. 6. Additional findings described above. COMMENT: 1. Reference per NASCET criteria for degree of stenosis: Mild: less than 50% stenosis. Moderate: 50-69% stenosis. Severe: 70-94% stenosis. Near occlusion: 95-99% stenosis. 2. In patients aged 35 years and older with an incidental thyroid nodule equal to or greater than 1.[address], MRI or extrathyroidal US, further evaluation with dedicated thyroid US is recommended for patients with normal life expectancy and without comorbidities. For smaller nodules without suspicious features, no further evaluation or follow up is recommended. [facility] ECHO *[facility]* [place] [address] Fax #: [phone] Transthoracic Echocardiogram Patient: Ross Aranda : 1955 Study Date: 05/03/2019 Age: 63 Gender: F HR: 91 bpm Height: 63 in /160 cm BSA: 1.71 m^2 Weight: 143 lb /65 kg BMI: 25.4 kg/m^2 *Medical Office Administrator: * Mera Castillo [facility] *Referring Physician: * Rachel Wylie *Reading Physician: * Adrian Dixon MD Indications: Abnormal EKG. History: Pulmonary Embolism. COPD. PMH: Cardiomyopathy. Risk factors: Current tobacco use. Hypertension. Pleural Effusions. Conclusions Summary: - Left ventricle: Systolic function is mildly reduced. The estimated ejection fraction is 45-50%. - Regional wall motion abnormality: Moderate hypokinesis of the apical myocardium; mild hypokinesis of the apical anterior and apical inferior myocardium. - Right ventricle: Systolic function is normal. - Mitral valve: There is trace regurgitation. - Aortic valve: There is no evidence of stenosis. There is trace regurgitation. - Tricuspid valve: There is trace to mild regurgitation. - Pericardium, extracardiac: There is no significant pericardial effusion. - Pulmonary arteries: Systolic pressure can not be accurately estimated. Nutrition: heart healthy Impression: This is a 63 year old female with history of non ischemic cardiomyopathy, tobacco abuse, ETOH abuse, chronic pain, osteoarthritis that presented to the ED after being found on the floor twice in 24 hours and brought to the ED with AMS, electrolyte abnormalities, EKG changes and troponinemia, now found to also have vertebral artery occlusion, C2 and thoracic compression fractures and persistent encephalopathy. Diagnoses: 1. Metabolic Encphalopathy, etiology unclear 2. Hyponatremia/Hypokalemia, resolved 3. Vertebral Artery Occlusion 4. EKG Changes 5. Elevated Troponin 6. Non Ischemic Cardiomyopathy 7. C3 Compression Fracture 8. T2 and T3 Compression Fractures 9. Chronic Pain 10. Tobacco Abuse 11. Fluid overload, resolving 12. Cough/Fever 13. Aspiration Pneumonitis 14. Questionable ETOH Use/Abuse Disorder Plan: Plan: Neuro: - Neuro consulted and following - EEG with no seizure activity, keppra DCd - MRI brain with no acute CVA - Telestroke did not recommend transfer for clot retrieval/intervention for vertebral artery occlusion - Continue thiamine, folic acid and optimize/replete lytes, WAM discontinued, continue PRN ativan, Wernickes? - Continue asa, statin CV: - Cardiology consulted, recommends getting neuro deficits under control before approaching any cardiac issues - Was fluid overloaded clinically and on CXR 05/04, responded well to 40mg lasix , currently at negative fluid deficit and appears euvolemic - ECHO as above, etiology of NICM unclear - Trops .048/.056/0.36 with no complaints of chest pain, likely demand in setting of hypoxia and cardiomyopathy - Continue tele, daily EKGs - Continue low dose metoprolol and ASA, consider CAMRON Pulm: - Sats adequate on nasal canula, no further hypoxia but cough increasing with rhonchi - Nebs PRN with flutter valve - ABG without CO2 retention - CXR 05/04 with early consolidation on right, aspiration? - continue zosyn and monitor temps, no white count thus far GI: - No GI issues at present /Renal: - will DC jimenez today - BUN low, Creat normal, monitor Musculoskeletal: - PRN oxycodone, monitor for sedation - PT when stable/clear by neurosurgery, for now OOG to chair with atka J collar and position for comfort - Cspine precautions with [place] J - MRI cspine with noted compression fracture at C3, MRI thoracic with chronic fractures only - Neurosurgery pending confirmation of chronicity of C3 fracture, pending flex- ex films to ascertain stability of fracture ID: - Zosyn to cover for possible aspiration pneumonitis - Remains with low grade temps 100-100.2 FEN - heart healthy diet DVT - SCDs, off heparin drip, start heparin SQ Code Status - Full code Critical Care Time: 75mins
[2019-05-05] MEDS: Acetaminophen TAB* 325 MG PO PRN ×2 (15:44→21:24)
--- NOTE | 2019-05-05 19:11 | PN ---
Progress Note - Progress Note Date of Service: 05/05/19 Note: Dr. Georges spoke with radiology about the C3 compression fracture, it appears this is a chronic injury. Neurosurgery recommends flexion and extension X rays of the cervical spine. She can wear [place] J collar for comfort. Also will recommend X ray's of the lumbar spine to evaluate for any acute injury. Currently patient is denying any neck or pain in her lower back. Neurosurgery will place the orders.
[2019-05-05] MEDS: Heparin VIAL(*) 5000 UNITS/ML VIAL (FIVE THOUSAND) SUBCUT SCH (21:24)
[2019-05-05] MEDS: Atorvastatin* 40 MG TAB PO SCH (21:25)
[2019-05-06] MEDS: ZOSYN 3.375 GM Q8H per EXTENDED INFUSION IVPB SCH ×6 (04:00→19:33)
[2019-05-06] MEDS: oxyCODONE TAB* 5 MG TAB PO PRN ×3 (04:00→19:38)
[2019-05-06] MEDS: Levothyroxine TAB* 25 MCG TAB PO SCH (06:05)
[2019-05-06] MEDS: Heparin VIAL(*) 5000 UNITS/ML VIAL (FIVE THOUSAND) SUBCUT SCH ×3 (06:05→22:04)
[2019-05-06 06:37] LABS: ABS Eosinophils 0.1 10^3/ul (0-0.6); ABS Lymphocytes 1.1 10^3/ul (1.0-4.8); ABS Monocytes 0.8 10^3/ul (0-0.8); ABS Neutrophils 3.7 10^3/ul (1.5-7.7); Hematocrit 28 % (35-47); Hemoglobin 9.9 g/dL (12.0-16.0); Lymphocyte % 19.9 %; Mean Corpuscular HGB Conc 35 g/dL (31-36); Mean Corpuscular Hemoglobin 31 pg (27-31); Mean Corpuscular Volume 90 fL (80-97); Mean Platelet Volume 7.9 fL (7.4-10.4); Platelet Count 206 10^3/uL (150-450); Red Blood Count 3.16 10^6 /uL (3.70-4.87); Red Cell Distribution Width 14 % (10-15); White Blood Count 5.7 10^3/uL (3.5-10.8)
[2019-05-06 06:56] LABS: Albumin 2.8 g/dL (3.2-5.2); Albumin/Globulin Ratio 1.3 (1-3); BUN/Creatinine Ratio 26.8 (8-20); Calcium 8.7 mg/dL (8.6-10.3); EGFR African American 189.6 (>60); EGFR Non-African American 156.7 (>60); Globulin 2.1 g/dL (2-4); Potassium 4.2 mmol/L (3.5-5.0); Total Bilirubin 0.7 mg/dL (0.2-1.0); Total Protein 4.9 g/dL (6.4-8.9)
[2019-05-06] MEDS: Metoprolol Tartrate TAB* 25 MG PO SCH (08:46)
[2019-05-06] MEDS: Multivitamins/Minerals TAB PO SCH (08:47)
[2019-05-06] MEDS: Aspirin EC TAB* 81 MG TAB.EC PO SCH (08:47)
[2019-05-06] MEDS: guaiFENesin ER TAB 600 MG PO SCH ×2 (08:47→22:03)
[2019-05-06] MEDS: Thiamine TAB* 100 MG TAB PO SCH (08:47)
[2019-05-06] MEDS: Folic Acid TAB* 1 MG PO SCH (08:47)
[2019-05-06] MEDS: Benzonatate CAP* 100 MG PO SCH ×3 (10:19→22:03)
[2019-05-06] MEDS: Acetaminophen TAB* 325 MG PO PRN (14:22)
--- NOTE | 2019-05-06 14:50 | PN ---
Progress Note - Progress Note Date of Service: 05/06/19 Note: Neurosurgery reviewed imaging, Dr. Georges spoke with radiology and confirmed that patient does not have any acute fractures in the thoracic or lumbar spine, her imaging is identical to previous MRI study completed in 2016. Flexion and extension was reviewed, if possible would recommend a repeat study that included T1.
--- NOTE | 2019-05-06 18:09 | PN ---
Subjective Date of Service: 05/06/19 Interval History: Patient seen and examined. No acute overnight events. Patient downgraded from ICU to floor. Denies acute pain, mentation seems improved.Remains weak but wants to work with PT in an effort ot be discharged to home by Friday. Objective Active Medications: Acetaminophen (Tylenol Tab*) 650 mg PO Q4H PRN PRN Reason: MILD PAIN or TEMP > 100.4 Last Admin: 05/06/19 14:22 Dose: 650 mg Albuterol/Ipratropium (Duoneb (Albuterol 2.5 Mg/Ipratropium 0.5 Mg)) 1 neb INH RT.[id number] AWAKE PRN PRN Reason: WHEEZING Aspirin (Aspirin Ec Tab*) 81 mg PO DAILY [facility] Last Admin: 05/06/19 08:47 Dose: 81 mg Atorvastatin Calcium (Lipitor*) 40 mg PO 2100 [facility] Last Admin: 05/05/19 21:25 Dose: 40 mg Benzonatate (Tessalon Cap*) 100 mg PO TID [facility] Last Admin: 05/06/19 13:37 Dose: 100 mg Folic Acid (Folvite Tab*) 1 mg PO DAILY [facility] Last Admin: 05/06/19 08:47 Dose: 1 mg Guaifenesin (Mucinex*) 600 mg PO BID [facility] Last Admin: 05/06/19 08:47 Dose: 600 mg Heparin Sodium (Porcine) (Heparin Vial(*)) 5,000 units SUBCUT Q8HR [facility] Last Admin: 05/06/19 13:38 Dose: 5,000 units Piperacillin Sod/Tazobactam (Sod 3.375 gm/ Sodium Chloride) 100 mls @ 25 mls/ hr IVPB Q8H [facility] Last Admin: 05/06/19 10:22 Dose: 25 mls/hr Levothyroxine Sodium (Synthroid Tab*) 25 mcg PO DAILY@0600 [facility] Last Admin: 05/06/19 06:05 Dose: 25 mcg Lorazepam (Ativan Tab(*)) 1 mg PO TID PRN PRN Reason: ANXIETY Last Admin: 05/05/19 21:24 Dose: 1 mg Metoprolol Tartrate (Lopressor Iv*) 2.5 mg IV Q6H PRN PRN Reason: BLOOD PRESSURE Metoprolol Tartrate (Lopressor Tab*) 12.5 mg PO DAILY [facility] Last Admin: 05/06/19 08:46 Dose: 12.5 mg Miscellaneous (Ativan Pyxis Parra) 1 ea N/A .ATIVAN IV PARRA PRN PRN Reason: PYXIS PARRA Multivitamins/Minerals (Theragran/Minerals Tab*) 1 tab PO DAILY [facility] Last Admin: 05/06/19 08:47 Dose: 1 tab Ondansetron HCl (Zofran Inj*) 4 mg IV Q4H PRN PRN Reason: NAUSEA/VOMITING Oxycodone HCl (Roxycodone Tab*) 10 mg PO Q6H PRN PRN Reason: PAIN - SEVERE Last Admin: 05/06/19 10:19 Dose: 10 mg Pharmacy Consult (Zosyn Per Pharmacy*) 1 note FOLLOW UP .ZOSYN PER PHARMACY [facility] Thiamine HCl (Vitamin B-1 Tab*) 100 mg PO Q24H [facility] Last Admin: 05/06/19 08:47 Dose: 100 mg Vital Signs - 8 hr 05/06/19 05/06/19 05/06/19 10:19 10:20 11:15 Temperature 99.1 F Pulse Rate 99 Respiratory 20 20 20 Rate Blood Pressure 107/57 (mmHg) O2 Sat by Pulse 95 Oximetry 05/06/19 05/06/19 13:30 15:15 Temperature 97.6 F Pulse Rate 101 Respiratory 20 20 Rate Blood Pressure 104/59 (mmHg) O2 Sat by Pulse 99 Oximetry Oxygen Devices in Use Now: Nasal Cannula Appearance: alert, NAD Ears/Nose/Mouth/Throat: NL Teeth, Lips, Gums, Mucous Membranes Moist Neck: NL Appearance and Movements; NL JVP, Trachea Midline Respiratory: Symmetrical Chest Expansion and Respiratory Effort - improved wheeze, less course, diminished bases Cardiovascular: NL Sounds; No Murmurs; No JVD, RRR, No Edema Skin: No Rash or Ulcers Neurological: Alert and Oriented x 3, - - gen'l weakness Nutrition: Taking PO's Result Diagrams: 05/06/19 06:08 05/06/19 06:08 Microbiology and Other Data: Microbiology 05/02/19 15:30 Urine Culture - Final Urine 05/02/19 23:00 Nasal Screen MRSA (PCR) - Final Nasal Mrsa Not Detected Diagnostic Imaging: Patient Name: ROSS ARANDA Medical Record#: [id number] Ordering Physician: Silva Randhawa NP Acct.#: [id number] : 1955 Age: 63 Sex: F Location: [facility]ENSIVE CARE UNIT Exam Date: 05/03/19908 ADM Status: ADM IN Order Information: MRI CERVICAL SPINE WO Accession Number: [id number] CPT: 46120 EXAM: MR Cervical Spine Without Contrast EXAM DATE/TIME: 05/03/2019 8:21 PM CLINICAL HISTORY: 63 years old, female; Pain and injury or trauma; Initial encounter; Unconscious; Neck pain; Injury date: 05/02/2019; Patient HX: PT had a fall yesterday, brought to er by EMS due to loc, compression facture seen on CT. Possbile occulion of vertebral artery per CT scan. PT was found yesterday unresponsive. PT complainling of pain. PT is claustrophobic and uncomfortable - some motion on images - best attempt; Additional info: Compression fractures TECHNIQUE: Imaging protocol: Multiplanar magnetic resonance images of the cervical spine without contrast. COMPARISON: [facility] WO MRI CERVICAL SPINE WO 07/14/2015 4:34 PM FINDINGS: Vertebrae: Partially reversed cervical lordosis without spondylolisthesis increased compared to prior study. The craniocervical junction is normal. No fractures. Compression fracture of the C3 vertebral body again visualized similar to prior study. Remaining vertebral body heights are maintained. Normal marrow signal intensity. Spinal cord: Visualized brain and spinal cord are normal in signal intensity. C1-C2: The atlantoaxial articulation is symmetric and mild to moderately degenerated. No canal stenosis or neural foraminal narrowing. C2-C3: Mild disc height loss without disc bulge or canal stenosis.The facet joints demonstrate mild degenerative hypertrophy and sclerosis. No neural foraminal narrowing. C3-C4: Leftward asymmetric disc bulge endplate osteophyte complex which abuts the anterior surface of the cord causing moderate canal stenosis advanced compared to prior study. Severe left and mild right facet hypertrophy. Moderate bilateral neural foraminal narrowing. Findings advanced compared to prior study. C4-C5: Moderate disc height loss with symmetric disc bulge endplate osteophyte complex which abuts the anterior surface of the cord causing mild to moderate canal stenosis unchanged from prior study.The facet joints demonstrate moderate degenerative narrowing and sclerosis. Moderate bilateral neural foraminal narrowing. Findings unchanged from prior study. C5-C6: Moderate disc height loss with symmetric disc bulge endplate osteophyte complex causing moderate canal stenosis with abutment of the anterior surface of the cord and causing mild cord flattening unchanged from prior study.The facet joints demonstrate mild degenerative hypertrophy and sclerosis. Mild neural foraminal narrowing. Findings unchanged from prior study. C6-C7: Mild disc height loss is symmetric disc bulge endplate osteophyte complex causing no canal stenosis. The facet joints demonstrate mild degenerative hypertrophy and sclerosis.Mild neural foraminal narrowing. [facility] Patient Name:ROSS ARANDA MR: [id number] : 1955 Findings unchanged from prior study. C7-T1: No disc height loss, disc bulge, or canal stenosis. The facet joints are normal. No neural foraminal narrowing. Vertebral arteries: Expected flow voids in the vertebral arteries. Soft tissues: Normal. IMPRESSION: 1. Moderate multilevel cervical spondylopathy advanced compared to prior study with multilevel canal stenosis and cord abutment. No associated myelopathy. 2. Stable C3 compression fracture. Assess/Plan/Problems-Billing Assessment: This is a 63 year old female found on the floor in her home, brought to ER and found to be acutely altered, then found to have vertebral artery occlusion, C3 fracture, metabolic encephalopathy and elevated troponins. - Patient Problems (1) Altered mental status Code(s): R41.82 - ALTERED MENTAL STATUS, UNSPECIFIED SNOMED Code(s): 657984588 Comment: - Resolving, possible Wernicke's, metabolic, or hypoxic in origin 2/2 ETOH abuse and patient running out of oxygen at home - Continue thiamine, folic acid and vitamin supplementation - Neurology following - Continue ASA and statin - No acute CVA (2) Alcohol use disorder Code(s): F10.99 - ALCOHOL USE, UNSP WITH UNSPECIFIED ALCOHOL-INDUCED DISORDER SNOMED Code(s): 7636966 Comment: - Continue thiamin, folic acid and vitamins - No acute withdrawal - SW consulted (3) C3 cervical fracture Code(s): S12.200A - UNSP DISP FX OF THIRD CERVICAL VERTEBRA, INIT FOR CLOS FX SNOMED Code(s): 399134678 Comment: - MRI and flex-ex films with no acute fracture - Per neurosurgery, [place] J removed - OK for PT/OT (4) Systolic congestive heart failure Code(s): I50.20 - UNSPECIFIED SYSTOLIC (CONGESTIVE) HEART FAILURE SNOMED Code( s): 59383626 Comment: - Non-ischemic CM, unclear etiology (alcoholism?) - Had one dose lasix with good effect - Appears euvolemic - I&Os (5) Vertebral artery occlusion Code(s): I65.09 - OCCLUSION AND STENOSIS OF UNSPECIFIED VERTEBRAL ARTERY SNOMED Code(s): 050555005 Comment: - Telestroke consult, no need for acute intervention - Neuro following - ASA and statin (6) Elevated troponin Code(s): R74.8 - ABNORMAL LEVELS OF OTHER SERUM ENZYMES SNOMED Code(s): 676540929 Comment: - Likely demand - Would benefit from outpatient cardiology follo up and stress test (7) Aspiration pneumonia Code(s): J69.0 - PNEUMONITIS DUE TO INHALATION OF FOOD AND VOMIT SNOMED Code(s ): 502145471 Comment: - Likely aspirated when patient was altered and then sedated - With fevers improving - Continue zosyn and nebs - Clinically improving (8) Chronic pain Code(s): G89.29 - OTHER CHRONIC PAIN SNOMED Code(s): 92950438 Comment: - Patient may have been taking higher doses of home oxy - Tolerating oxycodone q6h while inpatient without breakthrough pain or withdrawal (9) DVT prophylaxis Current Visit: Yes Status: Acute Code(s): Z29.9 - ENCOUNTER FOR PROPHYLACTIC MEASURES, UNSPECIFIED SNOMED Code(s): 582295406 (10) DVT prophylaxis Code(s): LQT7763 - SNOMED Code(s): 217964874 Comment: - HSQ (11) Patient is full code Code(s): Z78.9 - OTHER SPECIFIED HEALTH STATUS SNOMED Code(s): 376764535 Status and Disposition: Inpatient, dispo likely home vs STR when stable.
[2019-05-06] MEDS: Atorvastatin* 40 MG TAB PO SCH (22:03)
[2019-05-07] MEDS: oxyCODONE TAB* 5 MG TAB PO PRN ×4 (02:29→22:17)
[2019-05-07] MEDS: Simethicone TAB* 80 MG TAB.CHEW PO PRN ×4 (02:30→22:17)
[2019-05-07] MEDS: ZOSYN 3.375 GM Q8H per EXTENDED INFUSION IVPB SCH ×6 (03:28→19:53)
[2019-05-07] MEDS: Acetaminophen TAB* 325 MG PO PRN ×2 (04:21→13:41)
[2019-05-07] MEDS: Heparin VIAL(*) 5000 UNITS/ML VIAL (FIVE THOUSAND) SUBCUT SCH ×3 (05:49→22:19)
[2019-05-07] MEDS: Levothyroxine TAB* 25 MCG TAB PO SCH (05:50)
[2019-05-07] MEDS: Thiamine TAB* 100 MG TAB PO SCH (09:32)
[2019-05-07] MEDS: Folic Acid TAB* 1 MG PO SCH (09:32)
[2019-05-07] MEDS: Metoprolol Tartrate TAB* 25 MG PO SCH (09:32)
[2019-05-07] MEDS: LORazepam TAB(*) 1 MG PO PRN ×3 (09:32→22:15)
[2019-05-07] MEDS: Benzonatate CAP* 100 MG PO SCH ×3 (09:32→19:54)
[2019-05-07] MEDS: Aspirin EC TAB* 81 MG TAB.EC PO SCH (09:32)
[2019-05-07] MEDS: Multivitamins/Minerals TAB PO SCH (09:32)
[2019-05-07] MEDS: guaiFENesin ER TAB 600 MG PO SCH ×2 (09:33→19:54)
[2019-05-07] MEDS: Ondansetron INJ* 2 MG/ML VIAL IV PRN (09:36)
[2019-05-07] MEDS: Atorvastatin* 40 MG TAB PO SCH (19:54)
--- NOTE | 2019-05-07 21:07 | PN ---
Progress Note - Progress Note Date of Service: 05/07/19 Note: Neurosurgery team reviewed repeat cervical spine X rays, there is subluxation at C3/C4 with noticeable movement seen with flexion and extension. At this time will recommend patient wear [place] J collar for support. Also recommend that patient follow up in outpatient clinic in 2 - 3 weeks with repeat flexion/ extension study. Patient was seen by neurosurgery and discussed findings and recommendations with her. Neurosurgery team will be available as needed.
[2019-05-08] MEDS: Ondansetron INJ* 2 MG/ML VIAL IV PRN ×2 (01:53→05:11)
[2019-05-08] MEDS: ZOSYN 3.375 GM Q8H per EXTENDED INFUSION IVPB SCH ×4 (02:45→11:28)
[2019-05-08] MEDS: Heparin VIAL(*) 5000 UNITS/ML VIAL (FIVE THOUSAND) SUBCUT SCH ×2 (05:11→13:26)
[2019-05-08] MEDS: Levothyroxine TAB* 25 MCG TAB PO SCH (05:13)
[2019-05-08] MEDS: oxyCODONE TAB* 5 MG TAB PO PRN (05:13)
[2019-05-08] MEDS: guaiFENesin ER TAB 600 MG PO SCH (08:36)
[2019-05-08] MEDS: Aspirin EC TAB* 81 MG TAB.EC PO SCH (08:36)
[2019-05-08] MEDS: Benzonatate CAP* 100 MG PO SCH ×2 (08:36→13:26)
[2019-05-08] MEDS: Multivitamins/Minerals TAB PO SCH (08:36)
[2019-05-08] MEDS: Folic Acid TAB* 1 MG PO SCH (08:37)
[2019-05-08] MEDS: Thiamine TAB* 100 MG TAB PO SCH (08:37)
[2019-05-08] MEDS: Metoprolol Tartrate TAB* 25 MG PO SCH (08:42)
[2019-05-08 11:58] VITALS: BP 113/66
--- NOTE | 2019-05-08 20:26 | DS ---
CC: Dr. Kaitlyn Madsen * AGAINST MEDICAL ADVICE DISCHARGE SUMMARY: DATE OF ADMISSION: 05/02/19 DATE OF DISCHARGE: 05/08/19 PRIMARY CARE PROVIDER: Dr. Kaitlyn Madsen ATTENDING PHYSICIAN: Dr. Tyler.* (DICTATED BY KI DOUGLAS NP) PRIMARY DIAGNOSES: 1. Toxic encephalopathy. 2. C3 fracture. 3. Nonischemic cardiomyopathy. 4. Aspiration pneumonia. 5. Vertebral artery occlusion. 6. Hypothyroidism. SECONDARY DIAGNOSES: 1. Hypertension. 2. Chronic pain. 3. Depression. STUDIES WHILE IN THE HOSPITAL: 1. EKG on 05/02/19 shows normal sinus rhythm with a rate of 90, QTc 553. Inverted T waves V1 through V6. 2. EKG on 05/02/19 shows normal sinus rhythm with a rate of 86, QTc 591. Inverted T waves in V1 through V6. 3. Chest x-ray on 05/02/19 reads as mild pulmonary vascular congestion and interstitial edema. 4. Brain CT on 05/02/19 reads as negative unenhanced head CT. 5. EKG on 05/02/19 shows normal sinus rhythm with occasional PACs at a rate of 76. QTc 607. Inverted T waves in V1 through V6. There is some artifact present. 6. Head CTA on 05/02/19 reads as mild atherosclerosis of the internal carotid arteries with less than 50% stenosis bilaterally. A dominant left vertebral artery is identified. There is absence of flow within the proximal right vertebral artery consistent with occlusion. This involved V1 and proximal V2 segments. There is pressure reconstitution as well more distally within the vertebral artery. Atherosclerosis and mural thrombus are visualized involving the left carotid bifurcation. There is less than 50% stenosis of the distal left common carotid artery. Less than 50% stenosis of the proximal left internal carotid artery. Anterior to the right glenoid process, there is a 2.2 x 1.8 cm mineralized loose body. 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 There is moderate compression fracture of the C3 vertebral body. Mild compression fractures are identified at T2 and T3. These findings are indeterminate in acuity. Clinical correlation and correlation with prior study is recommended. Additional findings as noted in the body of the report. 7. Transthoracic echocardiogram on 05/03/19 reads as the left ventricular systolic function is mildly reduced. The estimated ejection fraction is 45% to 50%. There is moderate hypokinesis of the apical myocardium and mild hypokinesis of the apical anterior and apical inferior myocardium. Right ventricular systolic function is normal. There is trace mitral regurgitation. There is no evidence of aortic stenosis. There is trace aortic regurgitation. There is trace to mild tricuspid regurgitation. There is no significant pericardial effusion. Systolic pressure in the pulmonary arteries cannot be accurately estimated. Compared to study of August 2018, the left ventricular disk function and apical hypokinesis are new. 8. Brain MRI on 05/03/19 reads as no acute intracranial abnormality. Age related brain atrophy. 9. Cervical spine MRI on 05/03/19 reads as moderate multilevel cervical spondylopathy, advanced compared to prior study with multilevel canal stenosis and cord abutment. No associated myelopathy. Stable C3 compression fracture. 10. Thoracic spine MRI on 05/03/19 reads as mild thoracic spondylopathy at T2- T3 and T3-T4. Multiple chronic compression fractures. No acute compression fractures. Right greater than left pleural effusions and associated compressive atelectasis. 11. EEG on 05/02/19 reads as this is an abnormal awake and drowsy EEG due to the presence of diffuse theta swelling of the background with superimposed beta frequencies. These findings are suggestive of a mild, nonspecific, diffuse encephalopathy with beta frequency typically seen with benzodiazepine therapy. 12. Chest x-ray on 05/04/19 reads as progression of pulmonary interstitial edema with developing air space disease of the right lower lung. 13. Cervical spine x-ray on 05/05/19 reads as limited exam. Consider CT imaging if there is concern for a new fracture, straightening of the cervical spine. Mild anterior subluxation of the C3-C4 level with flexion. Chronic C3 fracture. Diffuse severe degenerative disk disease. 14. Lumbar spine x-ray on 05/05/19 reads as multiple chronic dorsal and lumbar vertebral fractures at T8, T9, T10, T11, T12, L2, L3, and L4. 15. Cervical spine x-ray on 05/06/19 reads as anterior subluxation at the C3- C4 level with flexion. Chronic compression fracture of the C3 vertebra unchanged. Multilevel riinwcap-vd-clcjuz degenerative disk disease. CONSULTATIONS WHILE IN THE HOSPITAL: 1. Dr. Bradley with Cardiology on 05/02/19. 2. Dr. Pool with Neurology on 05/02/19. 3. Dr. Georges with Neurosurgery on 05/04/19. HISTORY OF PRESENT ILLNESS AND HOSPITAL COURSE: Ms. Neri is a 63-year-old female with past medical history of hypertension, chronic pain, cardiomyopathy, depression, rib fractures reportedly resulting in PE and pleural effusions, who presented to the emergency room on 05/02/19 with complaints of falls. Please see the history of and physical by Rachel Wylie NP for a complete summary of the events leading up to this hospitalization. In short, the patient was brought to the hospital by EMS after she was found lying on the floor at home, incontinent of urine. At that time, the patient was obtundent and not able to provide any history and it is unclear how long the patient was on the floor. In the emergency room, the patient had imaging as noted above and there was concern due to newly noted inverted T waves. She was also noted to have multiple electrolyte abnormalities including hyponatremia, hypokalemia, and hypomagnesemia. She was noted to have an elevated troponin of 0.48. For these reasons, the patient was admitted to the intensive care unit by the hospitalist service. Regarding the patient's encephalopathy, Dr. Pool did consult on 05/02/19. At that point, he felt as though the encephalopathy was secondary to hypoxemia, possibly related to narcotic use, though could also be effected by her electrolyte abnormalities. He recommended high thiamin because of concern for Wernicke's encephalopathy. He did arrange for an EEG which was negative as noted above. The patient's mental status continued to improve. She was seen by Dr. Pool again on 05/05/19. At that point, he noted that he felt the encephalopathy was hypoxic and toxic and that she had recovered well. He recommended continuing the patient on thiamine and continuing oxygen therapy. The patient was also noted to have multiple compression fractures, the most concerning of which being a C3 compression fracture. The patient was seen by Dr. Georges from Neurology who felt as though this represented a chronic injury. He recommended flexion and extension x-rays of the cervical spine for further evaluation, although noted that the patient should have a [place] collar in place. The patient was followed by Neurosurgery throughout this hospitalization. Ultimately, flexion and extension x-rays were concerning for subluxation at C3-C4 with noticeable movement. They recommended continuing use of the [place] collar with appropriate outpatient followup. There were some cardiac concerns on admission because of the T wave inversions and elevated troponin. The patient was seen by Dr. Bradley on 05/02/19. At that point, due to elevated troponins and qnvlcqjv-ag-uvvzci cardiomyopathy seen on echo, she felt as though the cardiomyopathy was secondary to metabolic disorders. She recommended beta-kira therapy and initiating an CAMRON inhibitor if blood pressure allowed. The patient was started on a heparin drip at that point, though was not stable for cardiac catheterization due to metabolic and neurological concerns. She advised that the patient will need appropriate followup to determine if she would need a cardiac catheterization or stress test. On 05/04/19, there were concerns about the patient's respiratory status and chest x- ray noted above showed concern for early right-sided consolidation which was felt likely to be secondary to aspiration while the patient was obtunded, she was started on Zosyn at that time. The patient was incidentally found to have vertebral artery occlusion. Neurology did recommend starting the patient on aspirin and atorvastatin, though there was ultimately no concern for TIA or CVA during this hospitalization. The patient was incidentally found to have a low TSH on admission at 0.29. She does not have any known history of hypothyroidism and was ultimately started on levothyroxine. I received a call from the patient's nurse this morning that the patient was very anxious to leave. Upon speaking with the patient, she noted that her condenser at home was not working and she felt as though that was the reason for her fall. I did speak with Case Management, and unfortunately, the patient' s home care company is not available on the weekend, so I advised the patient that she would need to stay, say for the weekend, until appropriate oxygen therapy was able to be secured on Friday as the patient has been previously instructed to use oxygen by Dr. Fenton, though it does sound as though the patient is noncompliant with this for the most part. The patient was very adamant that she wanted to leave and therefore chose to sign out against medical advice. I did speak with the patient about the risks of leaving against medical advice. At this point, she is medically stable for discharge except for the fact that she does not have any home oxygen, so she was advised the risk of leaving against medical advice included hypoxia which could ultimately result in repeat episode of encephalopathy, respiratory distress, dizziness and falls, and potentially . The patient was understanding of these risks and was able to repeat them back to me, and at this point, the patient does have capacity to make her own medical decision. PHYSICAL EXAM: On exam today, she reports feeling well and offers no complaints. She has no focal neurological deficits. Her heart has a regular rate and rhythm without murmurs, rubs, or gallops. Lungs sounded clear to auscultation without rhonchi, wheezes, or rubs. Abdomen is soft, nontender. There is no edema. Physical exam is otherwise benign. Most recent vital signs read as follows: Temp 98.2, heart rate 80, respiratory rate 20, oxygen saturation 98% on 2 L, blood pressure 113/66. DISCHARGE MEDICATIONS: New medications: 1. Acetaminophen 650 mg p.o. q.4 hours p.r.n. pain. 2. Augmentin 875 mg p.o. b.i.d. x3 days. 3. Aspirin 81 mg p.o. daily. 4. Atorvastatin 40 mg p.o. daily. 5. Folic acid 1 mg p.o. daily. 6. Levothyroxine 25 mcg p.o. daily. 7. Metoprolol tartrate 12.5 mg p.o. daily. 8. Multivitamin 1 tab p.o. daily. 9. Thiamine 100 mg p.o. daily. Continued medications: 1. Bumex 1 mg p.o. b.i.d. 2. Magnesium oxide 500 mg p.o. daily. 3. Oxycodone 10 mg p.o. q.8 hours p.r.n. pain. 4. Potassium chloride 10 mEq p.o. daily. Discontinued medications: 1. Prednisone. 2. Ibuprofen. DISCHARGE PLAN: Ms. Neri is choosing to leave against medical advice today , although I did send prescriptions to her pharmacy in an attempt to minimize her risk of readmission. She will need to complete an additional 3 days of Augmentin to complete a total of 7 days of antibiotic therapy for her aspiration pneumonia. Additionally, she will need to take daily aspirin and atorvastatin due to her noted vertebral artery occlusion. She recently has been started on levothyroxine due to newly noted hypothyroidism. She will need a repeat TSH in approximately 6 weeks and that will be deferred to her primary care provider. Regarding her cardiomyopathy, the patient has tolerated metoprolol well here in the hospital and she can continue that at home. At this point, her blood pressure will not tolerate the addition of an CAMRON inhibitor. Again, per neurology recommendation, the patient should continue taking thiamine as well. I advised the patient against taking ibuprofen due to cardiac risk. I have advised her that she can take acetaminophen instead. Regarding her oxycodone, I did advise the patient that this will be a likely contributing factor to her encephalopathy due to sedation. It is unclear how often she was taking this at home, though she indicated to me that she was taking it 6 times a day. I advised her that she should cut back to 3 times a day, though it does not sound as though she will be compliant with those instructions. The patient has been advised to wear her oxygen as previously prescribed and to wear her [place] collar per recommendations from Neurosurgery. She will need appropriate followup with Neurosurgery in the next 2 to 3 weeks and should follow up with her primary care provider as soon as possible, hopefully early next week. Our case fitter has reached out to the patient's home care company to advise them of the patient's need for a new equipment. The patient should return to the emergency room or nearest hospital for any worsening of symptoms, shortness of breath, lightheadedness, dizziness, chest discomfort, high fever, chills, night sweats, loss of consciousness or any other worrisome signs or symptoms. DISCHARGE CONDITION: Fair. DISCHARGE DISPOSITION: Against medical advice. This is a summarized report of a complex medical history and hospital stay. For further details, please see the entire medical record. TIME SPENT: Approximately 65 minutes was spent on this discharge. KI DOUGLAS NP [id number]/CPS #: [id number] [place]
== END 2019-05-08 14:31 | disposition left against medical advice (07) | DRG 91 ==
LOC: ED 10:52 → ICU 18:09 → MEDTELE 05-05 22:17
PROVIDERS: ADMIT Internal Medicine; ATTEND Internal Medicine
PROC: 4A00X4Z Measurement of Central Nervous Electrical Activity, External Approach (ICD-10-PCS; principal; 2019-05-03)
DX: G92 Toxic encephalopathy (principal); J69.0 Pneumonitis due to inhalation of food and vomit; G93.1 Anoxic brain damage, not elsewhere classified; S12.290A Other displaced fracture of third cervical vertebra, initial encounter for closed fracture; E87.2 Acidosis; I24.9 Acute ischemic heart disease, unspecified; I50.22 Chronic systolic (congestive) heart failure; M48.53XA Collapsed vertebra, not elsewhere classified, cervicothoracic region, initial encounter for fracture; E87.1 Hypo-osmolality and hyponatremia; I42.8 Other cardiomyopathies; I25.10 Atherosclerotic heart disease of native coronary artery without angina pectoris; I11.0 Hypertensive heart disease with heart failure; K21.9 Gastro-esophageal reflux disease without esophagitis; M79.7 Fibromyalgia; M81.0 Age-related osteoporosis without current pathological fracture; Z96.652 Presence of left artificial knee joint; F41.9 Anxiety disorder, unspecified; F32.9 Major depressive disorder, single episode, unspecified; F17.210 Nicotine dependence, cigarettes, uncomplicated; M54.9 Dorsalgia, unspecified; E87.6 Hypokalemia; E83.42 Hypomagnesemia; R40.2362 Coma scale, best motor response, obeys commands, at arrival to emergency department; R40.2142 Coma scale, eyes open, spontaneous, at arrival to emergency department; F10.10 Alcohol abuse, uncomplicated; Y90.9 Presence of alcohol in blood, level not specified; I65.01 Occlusion and stenosis of right vertebral artery; M40.292 Other kyphosis, cervical region; M47.812 Spondylosis without myelopathy or radiculopathy, cervical region; X58.XXXA Exposure to other specified factors, initial encounter; I08.3 Combined rheumatic disorders of mitral, aortic and tricuspid valves; T40.605A Adverse effect of unspecified narcotics, initial encounter; R40.2252 Coma scale, best verbal response, oriented, at arrival to emergency department; R32 Unspecified urinary incontinence; M19.011 Primary osteoarthritis, right shoulder; G89.4 Chronic pain syndrome; M19.012 Primary osteoarthritis, left shoulder; K59.09 Other constipation; Z88.5 Allergy status to narcotic agent; Z91.030 Bee allergy status; Z95.5 Presence of coronary angioplasty implant and graft; Z83.3 Family history of diabetes mellitus; Z82.49 Family history of ischemic heart disease and other diseases of the circulatory system; Y92.009 Unspecified place in unspecified non-institutional (private) residence as the place of occurrence of the external cause; Z86.711 Personal history of pulmonary embolism
CPT/HCPCS: 36415; 70450; 70496; 70498; 70551; 71045; 72040; 72100; 72141; 72146; 80048; 80053; 80061; 80307; 80320; 81003; 81015; 82140; 82803; 83605; 83735; 83880; 84132; 84425; 84439; 84443; 84484; 85025; 85610; 85730; 87086; 87641; 93005; 93306; 94640; 95819; 99285; A9270-GY; G0480; G8978-GP-CJ; G8978-GP-CK; G8979-GP-CI; J1170; J1200; J1630; J1644; J1940; J1953; J2060; J2405; J2543; J3411; J3475; J3480; Q9967